=== PATIENT | female | born 1960 | race Caucasian/White ===

== ENCOUNTER 2020-02-06 15:19 | Outpatient (REF) | payer OTHER, SELFPAY ==
--- NOTE | 2020-02-06 15:31 | US_ITS ---
EXAMINATION: PELVIC ULTRASOUND. CLINICAL INFORMATION: Pelvic pain. Perineal pain COMPARISON: None TECHNIQUE: Transcutaneous pelvic ultrasound. The patient was asked to void completely reexamined vaginally to better characterize the endometrium and adnexa FINDINGS: Transcutaneous scanning does not demonstrate a large adnexal mass or collection. The ovaries are not discretely identified. No suspicious abnormality in the region of the vagina. The estimated cervical length is 2.6 cm. No suspicious abnormality. The uterus measures approximately 7.5 x 1.9 x 4.1 cm. The uterus is anteverted. Slightly altered echotexture could reflect previous section. The endometrium measures approximately 0.3 cm. Small amount of fluid in the endometrial cavity of the fundus is nonspecific No suspicious abnormality of the myometrium. The uterine contour appears smooth. The ovaries are not definitely identified. No suspicious adnexal mass or collection. No free pelvic fluid US/US pelvic complete IMPRESSION: Relatively small uterus consistent with postmenopausal state. No suspicious mass. The ovaries are not identified
--- NOTE | 2020-02-06 15:31 | US_ITS ---
EXAMINATION: PELVIC ULTRASOUND. CLINICAL INFORMATION: Pelvic pain. Perineal pain COMPARISON: None TECHNIQUE: Transcutaneous pelvic ultrasound. The patient was asked to void completely reexamined vaginally to better characterize the endometrium and adnexa FINDINGS: Transcutaneous scanning does not demonstrate a large adnexal mass or collection. The ovaries are not discretely identified. No suspicious abnormality in the region of the vagina. The estimated cervical length is 2.6 cm. No suspicious abnormality. The uterus measures approximately 7.5 x 1.9 x 4.1 cm. The uterus is anteverted. Slightly altered echotexture could reflect previous section. The endometrium measures approximately 0.3 cm. Small amount of fluid in the endometrial cavity of the fundus is nonspecific No suspicious abnormality of the myometrium. The uterine contour appears smooth. The ovaries are not definitely identified. No suspicious adnexal mass or collection. No free pelvic fluid US/US transvaginal IMPRESSION: Relatively small uterus consistent with postmenopausal state. No suspicious mass. The ovaries are not identified
== END 2020-02-06 15:20 | disposition home or self-care (01) ==
LOC: HO.HMGCX 15:19
PROVIDERS: PCP Internal Medicine; Visit Provider Nurse Practitioner Family
DX: R10.2 Pelvic and perineal pain (principal)
CPT/HCPCS: 76830; 76856

== ENCOUNTER 2020-03-22 10:37 | Outpatient (REF) | payer OTHER, SELFPAY ==
--- NOTE | 2020-03-22 10:41 | XR_ITS ---
EXAMINATION: LEFT WRIST AND LEFT HAND. CLINICAL INFORMATION: Unspecified injury left wrist, left hand and left fingers. COMPARISON: None TECHNIQUE: 3 views left wrist and 3 views left hand. FINDINGS: LEFT WRIST: There is no visible acute fracture, dislocation or subluxation seen. The soft tissues are normal. LEFT HAND: There is no visible acute fracture, dislocation or subluxation. The joint space is maintained. No bony erosive changes. The soft tissues are normal. XR/XR hand LT 2V IMPRESSION: Unremarkable left wrist and left hand.
--- NOTE | 2020-03-22 10:41 | XR_ITS ---
EXAMINATION: LEFT WRIST AND LEFT HAND. CLINICAL INFORMATION: Unspecified injury left wrist, left hand and left fingers. COMPARISON: None TECHNIQUE: 3 views left wrist and 3 views left hand. FINDINGS: LEFT WRIST: There is no visible acute fracture, dislocation or subluxation seen. The soft tissues are normal. LEFT HAND: There is no visible acute fracture, dislocation or subluxation. The joint space is maintained. No bony erosive changes. The soft tissues are normal. XR/XR wrist LT min 3V IMPRESSION: Unremarkable left wrist and left hand.
== END 2020-03-22 10:38 | disposition home or self-care (01) ==
LOC: HO.HMGCX 10:37
PROVIDERS: PCP Internal Medicine; Visit Provider Nurse Practitioner Family
DX: S69.92XA Unspecified injury of left wrist, hand and finger(s), initial encounter (principal)
CPT/HCPCS: 73110; 73120

== ENCOUNTER → 2020-04-14 10:12 | Outpatient (BNVA) | payer OTHER, SELFPAY | PROVIDERS: PCP Internal Medicine; Visit Provider Advanced Practice Midwife | DX: N95.2 Postmenopausal atrophic vaginitis (principal); Z86.69 Personal history of other diseases of the nervous system and sense organs; Z86.19 Personal history of other infectious and parasitic diseases | CPT/HCPCS: 99212 ==

== ENCOUNTER 2020-06-21 13:49 | Outpatient (REF) | payer OTHER, SELFPAY ==
[2020-06-22 09:22] LABS: BV Int Neg Control Negative (Negative); BV Int Pos Control Positive (Positive)
== END 2020-06-21 13:50 | disposition home or self-care (01) ==
LOC: HO.LAB 13:49
PROVIDERS: PCP Internal Medicine; Visit Provider Advanced Practice Midwife
DX: Z01.419 Encounter for gynecological examination (general) (routine) without abnormal findings (principal); K59.00 Constipation, unspecified; N95.2 Postmenopausal atrophic vaginitis; Z79.899 Other long term (current) drug therapy; Z86.19 Personal history of other infectious and parasitic diseases
CPT/HCPCS: 87480; 87510; 87660

== ENCOUNTER 2020-07-27 14:57 | Outpatient (REF) | payer OTHER, SELFPAY ==
[2020-07-28 09:12] LABS: BV Int Neg Control Negative (Negative); BV Int Pos Control Positive (Positive)
== END 2020-07-27 14:58 | disposition home or self-care (01) ==
LOC: HO.LAB 14:57
PROVIDERS: PCP Internal Medicine; Visit Provider Advanced Practice Midwife
DX: N95.2 Postmenopausal atrophic vaginitis (principal)
CPT/HCPCS: 81003; 87480; 87510; 87660; 99212

== ENCOUNTER 2020-08-04 08:54 | Outpatient (REF) | payer OTHER, SELFPAY ==
--- NOTE | ~2020-08-04 | XR_ITS ---
EXAMINATION: XR LUMBOSACRAL SPINE WITH OBLIQUES CLINICAL INFORMATION: M54.9 - Dorsalgia, unspecified COMPARISON: MRI lumbar spine 01/06/2014 TECHNIQUE: Lumbar spine is imaged in 5 views: AP, lateral, lateral view coned to lumbosacral junction, and bilateral oblique. FINDINGS: There is normal lumbar segmentation with 5 nonrib-bearing lumbar vertebrae of normal height and normal lumbar lordosis. There is no lumbar vertebral compression, spondylolisthesis, or destructive process. The oblique view show no lumbar spondylolysis. There are degenerative disc changes with mild disc narrowing and vertebral spurring L2-L3 and L3-L4. There is lumbar facet degeneration at L5-S1. The SI joints and visualized sacrum are unremarkable. XR/XR lumbar spine 4V min IMPRESSION: 1. Mild degenerative disc changes L2-L3 and L3-L4. 2. Lumbar facet degeneration L5-S1. 3. No vertebral compression, spondylolisthesis, or spondylolysis.
== END 2020-08-04 08:55 | disposition home or self-care (01) ==
LOC: HO.HMGCX 08:54
PROVIDERS: PCP Internal Medicine; Visit Provider Nurse Practitioner Family
DX: M54.9 Dorsalgia, unspecified (principal)
CPT/HCPCS: 72110

== ENCOUNTER 2020-11-23 09:21 | Outpatient (REF) | payer OTHER, SELFPAY ==
[2020-11-23 11:27] LABS: MANUAL DIFF FLAG NO
[2020-11-23 11:33] LABS: Basophils Percent Auto 1.1 % (0-2); Eosinophils Percent Auto 0.5 % (0-4); Hematocrit 38.6 % (37-47); Hemoglobin 12.3 g/dl (12.0-16.0); Lymphocytes Absolute Auto 1.2 X10*3/uL (1.2-4.9); Lymphocytes Percent Auto 31.6 % (20-40); Mean Corpuscular HGB Conc 31.9 g/dl (31.0-35.0); Mean Corpuscular Hemoglobin 30.5 pg (27.0-33.0); Mean Corpuscular Volume 95.8 fL (80-98); Mean Platelet Volume 10.8 fL (9.4-12.3); Monocytes Absolute Auto 0.3 X10*3/uL (0.1-1.2); Monocytes Percent Auto 7.7 % (2-11); Neutrophils Absolute Auto 2.2 X10*3/uL (2.0-8.3); Neutrophils Percent Auto 59.1 % (45-73); Platelet Count 167 X10*3/uL (160-400); Red Blood Count 4.03 X10*6/uL (4.20-5.50); Red Cell Distribution Width 12.6 % (11.0-16.0); White Blood Count 3.8 X10*3/uL (4.8-10.8)
[2020-11-23 12:01] LABS: Alanine Aminotransferase 14 U/L (0-31); Anion Gap 11 (12-20); Aspartate Amino Transferase 17 U/L (5-31); Blood Urea Nitrogen 13 mg/dL (9-16); Calcium 9.1 mg/dL (8.4-10.2); Carbon Dioxide 28 mmol/L (22-29); Chloride 108 mmol/L (96-108); Cholesterol 186 mg/dL; Estimated Glomerular Filt Rate > 60; Glucose Fasting 81 mg/dL (60-99); HDL Cholesterol 51 mg/dL; LDL Cholesterol Calculated 125 mg/dl; Magnesium 2.1 mg/dL (1.6-2.6); Potassium 4.1 mmol/L (3.3-5.1); Sodium 143 mmol/L (135-145); Triglycerides 51 mg/dL
[2020-11-23 12:07] LABS: TSH reflex Free T4 0.78 uIU/mL (0.32-4.0); Vitamin D 25-OH Total 62.7 ng/mL (>30)
[2020-11-23 12:21] LABS: Folate 11.4 ng/mL (> or = 4.0); Vitamin B12 580 pg/mL (200-900)
== END 2020-11-23 09:22 | disposition home or self-care (01) ==
LOC: HO.HMGCLDS 09:21
PROVIDERS: PCP Internal Medicine; Visit Provider Internal Medicine
DX: Z00.00 Encounter for general adult medical examination without abnormal findings (principal); E04.1 Nontoxic single thyroid nodule; R25.2 Cramp and spasm; Z83.49 Family history of other endocrine, nutritional and metabolic diseases; I10 Essential (primary) hypertension
CPT/HCPCS: 36415; 80048; 80061; 82306; 82607; 82746; 83735; 84443; 84450; 84460; 85025

== ENCOUNTER 2021-02-14 14:01 | Outpatient (REF) | payer OTHER, SELFPAY | END 2021-02-14 14:02 | disposition home or self-care (01) | LOC: HO.LNP 14:01 | PROVIDERS: Visit Provider Physician Assistant Medical | DX: N39.0 Urinary tract infection, site not specified (principal) | CPT/HCPCS: 87086 ==

== ENCOUNTER 2021-07-11 13:07 | Outpatient (REF) | payer OTHER, SELFPAY ==
[2021-07-14 02:51] LABS: HPV mRNA E6/E7 rflx Not Detected (Not Detected)
== END 2021-07-11 13:08 | disposition home or self-care (01) ==
LOC: HO.LAB 13:07
PROVIDERS: Visit Provider Advanced Practice Midwife
DX: Z01.411 Encounter for gynecological examination (general) (routine) with abnormal findings (principal); Z11.51 Encounter for screening for human papillomavirus (HPV); N89.8 Other specified noninflammatory disorders of vagina
CPT/HCPCS: 87624; 88142

== ENCOUNTER 2021-08-09 08:32 | Outpatient (REF) | payer OTHER, SELFPAY ==
--- NOTE | ~2021-08-09 | MM_ITS ---
EXAMINATION: MM SCREENING DIGITAL BREAST TOMOSYNTHESIS, BILATERAL CLINICAL INFORMATION: Screening. Asymptomatic. The lifetime risk of breast cancer based on the Tyrer-Cuzick Model is 10%. COMPARISON: Outside mammography: 01/10/2019, 01/02/2018, 12/26/2016 ([facility]). TECHNIQUE: Digital breast tomosynthesis is performed in both the craniocaudal and mediolateral oblique views along with computer-aided detection (CAD). Synthesized 2D images are generated from the tomosynthesis. FINDINGS: There are scattered areas of fibroglandular density (ACR BI-RADS breast composition Category b). There are no significant masses, abnormal calcifications, or other abnormalities. Parenchymal pattern is similar to prior outside exams. No developing density or architectural abnormality. The axilla and skin contours are unremarkable. MM/MM tomosynthesis screening BI IMPRESSION: No mammographic evidence of malignancy. ASSESSMENT: BI-RADS 1: Negative RECOMMENDATION: Routine annual mammography screening. This patient's information was entered into a reminder system with a target due date for their next mammogram.
== END 2021-08-09 08:33 | disposition home or self-care (01) ==
LOC: HO.MAMMO 08:32
PROVIDERS: Visit Provider Internal Medicine
DX: Z12.31 Encounter for screening mammogram for malignant neoplasm of breast (principal)
CPT/HCPCS: 77063; 77067

== ENCOUNTER 2021-09-27 10:36 | Outpatient (REF) | payer OTHER, SELFPAY ==
--- NOTE | ~2021-09-27 | XR_ITS ---
EXAMINATION: XR TIBIA AND FIBULA, RIGHT CLINICAL INFORMATION: Contusion COMPARISON: None TECHNIQUE: AP and lateral views of the right tibia and fibula were obtained. FINDINGS: The bones and soft tissues are normal. No fracture. No osseous lesions. XR/XR tibia fibula RT 2V IMPRESSION: Normal right tibia and fibula.
== END 2021-09-27 10:37 | disposition home or self-care (01) ==
LOC: HO.HMGCX 10:36
PROVIDERS: PCP Internal Medicine; Visit Provider Internal Medicine
DX: S80.11XA Contusion of right lower leg, initial encounter (principal); X58.XXXA Exposure to other specified factors, initial encounter; Y93.9 Activity, unspecified; Y92.9 Unspecified place or not applicable; Y99.8 Other external cause status
CPT/HCPCS: 73590

== ENCOUNTER 2021-10-10 12:09 | Outpatient (REF) | payer OTHER, SELFPAY ==
[2021-10-10 12:57] LABS: Influenza A PCR NEGATIVE (Negative); Influenza B PCR NEGATIVE (Negative); Resp Syncy Virus RNA Qual PCR NEGATIVE (Negative); SARS COV2 PCR INHOUSE NEGATIVE (Negative)
== END 2021-10-10 12:10 | disposition home or self-care (01) ==
LOC: HO.LNP 12:09
PROVIDERS: Visit Provider Physician Assistant
DX: Z20.822 Contact with and (suspected) exposure to COVID-19 (principal); B34.9 Viral infection, unspecified
CPT/HCPCS: 0241U

== ENCOUNTER 2021-11-21 09:38 | Outpatient (REF) | payer OTHER, SELFPAY ==
[2021-11-21 11:38] LABS: Blood Urea Nitrogen 12 mg/dL (9-16); Estimated Glomerular Filt Rate > 60
[2021-11-21 11:44] LABS: Alanine Aminotransferase 14 U/L (0-31); Anion Gap 12 (12-20); Aspartate Amino Transferase 16 U/L (5-31); Blood Urea Nitrogen 12 mg/dL (9-16); Calcium 9.1 mg/dL (8.4-10.2); Carbon Dioxide 27 mmol/L (22-29); Chloride 104 mmol/L (96-108); Cholesterol 209 mg/dL; Estimated Glomerular Filt Rate > 60; Glucose Fasting 89 mg/dL (60-99); HDL Cholesterol 61 mg/dL; LDL Cholesterol Calculated 140 mg/dl; Potassium 4.3 mmol/L (3.3-5.1); Sodium 139 mmol/L (135-145); Triglycerides 42 mg/dL
[2021-11-21 12:04] LABS: TSH reflex Free T4 0.66 uIU/mL (0.32-4.0); Vitamin D 25-OH Total 64.2 ng/mL (>30)
== END 2021-11-21 09:39 | disposition home or self-care (01) ==
LOC: HO.HMGCLDS 09:38
PROVIDERS: Absent Provider Urology; PCP Internal Medicine; Visit Provider Internal Medicine
DX: E04.1 Nontoxic single thyroid nodule (principal); K58.9 Irritable bowel syndrome, unspecified; J02.9 Acute pharyngitis, unspecified; R31.0 Gross hematuria; Z83.49 Family history of other endocrine, nutritional and metabolic diseases; Z86.19 Personal history of other infectious and parasitic diseases
CPT/HCPCS: 36415; 80048; 80061; 82306; 82565; 84443; 84450; 84460; 84520

== ENCOUNTER 2022-03-22 11:05 | Outpatient (REF) | payer OTHER, SELFPAY ==
[2022-03-22 13:49] LABS: MANUAL DIFF FLAG NO
[2022-03-22 13:58] LABS: Basophils Absolute Auto 0.1 X10*3/uL (0.0-0.2); Basophils Percent Auto 1.6 % (0-2); Eosinophils Percent Auto 0.9 % (0-4); Hematocrit 39.5 % (37.0-47.0); Hemoglobin 12.6 g/dl (12.0-16.0); Imm Gran Abs Auto 0.01 X10*3/uL (0.00-0.03); Imm Gran Pct Auto 0.2 % (0.0-0.4); Lymphocytes Absolute Auto 1.2 X10*3/uL (1.2-4.9); Lymphocytes Percent Auto 26.7 % (20-40); Mean Corpuscular HGB Conc 31.9 g/dl (31.0-35.0); Mean Corpuscular Hemoglobin 30.1 pg (27.0-33.0); Mean Corpuscular Volume 94.3 fL (80.0-98.0); Mean Platelet Volume 10.8 fL (9.4-12.3); Monocytes Absolute Auto 0.3 X10*3/uL (0.1-1.2); Monocytes Percent Auto 7.6 % (2-11); Neutrophils Absolute Auto 2.7 x10*3/uL (2.0-8.3); Platelet Count 182 X10*3/uL (160-400); Red Blood Count 4.19 X10*6/uL (4.20-5.50); Red Cell Distribution Width 12.6 % (11.0-16.0); White Blood Count 4.4 X10*3/uL (4.8-10.8)
[2022-03-22 14:54] LABS: Alanine Aminotransferase 17 U/L (0-31); Anion Gap 9 (12-20); Aspartate Amino Transferase 18 U/L (5-31); Blood Urea Nitrogen 15 mg/dL (9-16); Calcium 9.2 mg/dL (8.4-10.2); Carbon Dioxide 30 mmol/L (22-29); Chloride 105 mmol/L (96-108); Cholesterol 214 mg/dL; Estimated Glomerular Filt Rate > 60; Glucose Fasting 92 mg/dL (60-99); HDL Cholesterol 60 mg/dL; LDL Cholesterol Calculated 144 mg/dl; Magnesium 2.4 mg/dL (1.6-2.6); Potassium 4.7 mmol/L (3.3-5.1); Sodium 139 mmol/L (135-145); TSH reflex Free T4 0.75 uIU/mL (0.32-4.0); Triglycerides 50 mg/dL; Vitamin D 25-OH Total 56.8 ng/mL (>30)
[2022-03-22 15:04] LABS: Folate 11.4 ng/mL (> or = 4.0); Vitamin B12 628 pg/mL (200-900)
== END 2022-03-22 11:06 | disposition home or self-care (01) ==
LOC: HO.HMGCLDS 11:05
PROVIDERS: PCP Internal Medicine; Visit Provider Internal Medicine
DX: Z00.01 Encounter for general adult medical examination with abnormal findings (principal); E04.1 Nontoxic single thyroid nodule; E78.5 Hyperlipidemia, unspecified; Z86.69 Personal history of other diseases of the nervous system and sense organs; Z83.49 Family history of other endocrine, nutritional and metabolic diseases
CPT/HCPCS: 36415; 80048; 80061; 82306; 82607; 82746; 83735; 84443; 84450; 84460; 85025

== ENCOUNTER 2022-04-13 08:54 | Outpatient (REF) | payer OTHER, SELFPAY ==
--- NOTE | ~2022-04-13 | US_ITS ---
EXAMINATION: US THYROID CLINICAL INFORMATION: Nontoxic single thyroid nodule. COMPARISON: CT neck with contrast 03/13/2014. TECHNIQUE: Linear transducer grayscale and color Doppler examination with attention to the region of the thyroid. FINDINGS: SIZE: Measurements of the thyroid lobes and nodules are given in sagittal, anteroposterior and transverse dimensions respectively. Right Thyroid Lobe: 4.95 x 1.21 x 1.19 cm, volume 3.76 mL. Parenchyma: The gland echotexture is homogeneous. Thyroid vascularity is normal. Left Thyroid Lobe: 4.75 x 1.83 x 1.33 cm, volume 6.03 mL. Parenchyma: The gland echotexture is homogeneous. Thyroid vascularity is normal. Isthmus: 0.44 cm in maximum AP dimension. Estimated total number of nodules greater than or equal to 1 cm: 1. 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 Location: Isthmus. Size: 0.53 x 0.33 x 0.61 cm, volume 0.01 mL. Nodule characteristics: Composition: Spongiform (0). Echogenicity: Anechoic (0). Shape: Not taller than wide (0). Margins: Smooth (0). Echogenic Foci: None (0). ACR TI-RADS total points: 0 ACR TI-RADS category: 1 2. Location: Left mid. Size: 2.3 x 1.4 x 1.1 cm, volume 1.8 mL. Nodule characteristics: Composition: Solid/almost completely solid (2). Echogenicity: Hypoechoic (2). Shape: Taller than wide (3). Margins: Smooth (0). Echogenic Foci: None (0). ACR TI-RADS total points: 7 ACR TI-RADS category: 5 NODES: No lymphadenopathy is seen in the tissue surrounding the thyroid gland. US/US thyroid IMPRESSION: Slightly asymmetric enlargement left lobe. 2 nodules in the isthmus and midpole left lobe. The left lobe nodule is suspicious based on TI-RADS categorization. Recommend ultrasound guided biopsy. ACR TI-RADS RECOMMENDATION REFERENCE: Ultrasound-guided fine-needle aspiration, followup ultrasound, no further follow up. * TR1 (0 point) and TR 2 (2 points): No FNA or follow up. * TR3 (3 points): FNA if more than or equal to 2.5 cm in maximum dimension, followup ultrasound in 1, 3 and 5 years if 1.5 to 2.4 cm in maximum dimension. * TR4 (4-6 points): FNA if more than or equal to 1.5 cm in maximum dimension, followup ultrasound in 1, 2, 3 and 5 years if 1 to 1.4 cm in maximum dimension. * TR5 (more than or equal to 7 points): FNA if more than or equal to 1 cm in maximum dimension, followup ultrasound every year for 5 years if 0.5 to 0.9 cm in maximum dimension. * TR3, TR4 or TR5 nodules that are below the size threshold for followup receive no follow up.
--- NOTE | 2022-04-13 09:41 | ECG_ITS ---
Test Reason : Z86.79 Blood Pressure : / mmHG Vent. Rate : 060 BPM Atrial Rate : 060 BPM P-R Int : 160 ms QRS Dur : 092 ms QT Int : 402 ms P-R-T Axes : 074 035 047 degrees QTc Int : 402 ms Normal sinus rhythm Incomplete right bundle branch block Borderline ECG When compared with ECG of 30-JUN-2006 08:17, No significant change was found Referred By: Jaki Akers Electronically Signed By:YANG BOUDREAUX MD
== END 2022-04-13 08:55 | disposition home or self-care (01) ==
LOC: HO.HMGCX 08:54
PROVIDERS: PCP Internal Medicine; Visit Provider Internal Medicine
DX: E04.1 Nontoxic single thyroid nodule (principal); Z86.79 Personal history of other diseases of the circulatory system
CPT/HCPCS: 76536; 93005

== ENCOUNTER 2022-07-14 10:23 | Outpatient (REF) | payer OTHER, SELFPAY ==
--- NOTE | ~2022-07-14 | XR_ITS ---
EXAMINATION: XR RIBS, RIGHT, PA CHEST CLINICAL INFORMATION: Back and rib pain. COMPARISON: None available. TECHNIQUE: 3 views of the right ribs were obtained along with a PA view of the chest. A skin marker overlies the right ribs. FINDINGS: Lungs are clear. No consolidation, pneumothorax, or pleural effusion. The cardiomediastinal silhouette and pulmonary vasculature are normal. Osseous structures are unremarkable. Ribs are intact. No fractures are identified. XR/XR ribs RT min 3V w CXR1V IMPRESSION: Unremarkable examination.
== END 2022-07-14 10:24 | disposition home or self-care (01) ==
LOC: HO.HMGCX 10:23
PROVIDERS: PCP Internal Medicine; Visit Provider Internal Medicine
DX: R07.81 Pleurodynia (principal); M54.9 Dorsalgia, unspecified
CPT/HCPCS: 71101

== ENCOUNTER → 2022-07-19 08:36 | Outpatient (BNVA) | payer OTHER, SELFPAY | PROVIDERS: PCP Internal Medicine; Visit Provider Advanced Practice Midwife ==

== ENCOUNTER 2022-08-14 07:53 | Outpatient (REF) | payer OTHER, SELFPAY ==
--- NOTE | ~2022-08-14 | MM_ITS ---
EXAMINATION: MM SCREENING DIGITAL BREAST TOMOSYNTHESIS, BILATERAL CLINICAL INFORMATION: Screening. Asymptomatic. The lifetime risk of breast cancer based on the Tyrer-Cuzick Model is 7%. COMPARISON: Mammography: 08/09/2021; outside mammography 01/10/2019, 01/02/2018 ([place]). TECHNIQUE: Digital breast tomosynthesis is performed in both the craniocaudal and mediolateral oblique views along with computer-aided detection (CAD). Synthesized 2D images are generated from the tomosynthesis. FINDINGS: There are scattered areas of fibroglandular density (ACR BI-RADS breast composition Category b). There are no significant masses, abnormal calcifications, or other abnormalities. No architectural abnormality or developing density or significant change from prior studies. The skin contours and axilla are unremarkable. MM/MM tomosynthesis screening BI IMPRESSION: No mammographic evidence of malignancy. ASSESSMENT: BI-RADS 1: Negative RECOMMENDATION: Routine annual mammography screening. This patient's information was entered into a reminder system with a target due date for their next mammogram.
== END 2022-08-14 07:54 | disposition home or self-care (01) ==
LOC: HO.MAMMO 07:53
PROVIDERS: PCP Internal Medicine; Visit Provider Internal Medicine
DX: Z12.31 Encounter for screening mammogram for malignant neoplasm of breast (principal)
CPT/HCPCS: 77063; 77067

== ENCOUNTER → 2022-10-12 12:36 | Outpatient (BNV) | payer OTHER, SELFPAY | PROVIDERS: PCP Internal Medicine; Visit Provider Internal Medicine Medical Oncology | DX: D72.819 Decreased white blood cell count, unspecified (principal) | CPT/HCPCS: 99203; 99213 ==

== ENCOUNTER 2023-01-01 08:09 | Outpatient (AMB) | payer OTHER, SELFPAY ==
--- NOTE | 2023-01-01 08:10 | AM.OFFWIN_ITS ---
Intake Vital Signs 01/01/23 08:14 Height 5 ft 4 in Weight 144 lb 6 oz BMI 24.8 BP 130/74 Blood Pressure Location Lt brachial Position Sitting Pulse 77 Pulse Source Pulse Oximeter Temp 98.2 F Temp Source Oral Pulse Oximetry (%) 96 Oxygen Delivery Method Room Air Intake Visit Reasons: EST/left foot pain Patient Tobacco Use Status: Never used Tobacco Allergies Quinolones Allergy (Intermediate, Verified 01/01/23 08:29) SYNCOPE Penicillins [PENICILLINS] Allergy (Mild, Verified 01/01/23 08:29) HIVES sulfamethoxazole [From Septra] Allergy (Mild, Verified 01/01/23 08:29) Hives trimethoprim [From Septra] Allergy (Mild, Verified 01/01/23 08:29) Hives acetaminophen [Percocet] Allergy (Unknown, Verified 01/01/23 08:29) Unknown amoxicillin Allergy (Unknown, Verified 01/01/23 08:29) hives gluten Allergy (Unknown, Verified 01/01/23 08:29) Seizure levofloxacin [Levaquin] Allergy (Unknown, Verified 01/01/23 08:29) *ALL QUINOLONES -SYNCOPE oxycodone Allergy (Unknown, Verified 01/01/23 08:29) Unknown penicillin V Allergy (Unknown, Verified 01/01/23 08:29) hives sodium chloride Allergy (Unknown, Verified 01/01/23 08:29) HIVES sodium chloride for inhalation [From Saline] Allergy (Unknown, Verified 01/01/23 08:29) Unknown dairy Allergy (Unknown, Uncoded 01/01/23 08:29) stomach upset Influenza Vac A&B Surf Ant Adj Allergy (Unknown, Uncoded 01/01/23 08:29) hives pickle juice Allergy (Unknown, Uncoded 01/01/23 08:29) Hives Rice (Diagnostic) Allergy (Unknown, Uncoded 01/01/23 08:29) hives Medication List - Last Reconciled 01/01/23 by Chuck Snow MD calcium citrate 500 mg PO DAILY cetirizine (Zyrtec) 10 mg PO DAILY PRN cholecalciferol (vitamin D3) 50 mcg PO DAILY cyclobenzaprine 10 mg PO BEDTIME dicyclomine 10 mg PO TID lutein 10 mg PO DAILY magnesium citrate 100 mg PO DAILY nitrofurantoin monohyd/m-cryst 100 mg (Macrobid) 100 mg PO Q12H 7 days ondansetron 4 mg PO Q8H PRN phenazopyridine (Pyridium) 100 mg PO TID PRN 6 doses polyethylene glycol 3350 (ClearLax) 17 grams PO DAILY resveratrol-quercetin 100-100 mg tabs PO trimethoprim 100 mg PO BEDTIME PRN valacyclovir (Valtrex) 500 mg PO DAILY 90 days verapamil ER 120 mg PO DAILY vitamin B complex 1 tab PO DAILY vitamin E (dl, acetate) 400 units PO DAILY zinc 50 mg PO DAILY Do you need a note to return to daycare/school/sports/work: No HPI HPI Comments History of Present Illness Details 62-year-old female presents to the [facility] for a sick visit. She has 2 complaints. Patient is reporting pain in her left foot for the past month. Does not recall any fall or injury prior to the onset of symptoms. Pain is along the lateral margin of the foot. Worse on walking, but in the past few days she has been awakened at night with foot pain. In addition, patient is complaining of tinnitus. She has had these symptoms for many years but in the past month it has worsened. Symptoms are worse, in both ears when she is in a quiet environment. It is beginning to make her uncomfortable. [facility] Medical History (Updated 01/01/23 @ 08:32 by Chuck Snow MD) Hx of hematuria Hx of recurrent urinary tract infection Hx of renal calculi COVID-19 vaccine dose declined Refused influenza vaccine Tenosynovitis of finger Achilles tendinitis of right lower extremity Positional lightheadedness Irritable bowel syndrome Leg cramps Family history of thyroid disease in mother Thyroid nodule Lumbar arthropathy Endometriosis History of IBS delivery delivered Hyperlipidemia Hx of atrial flutter Liver cyst GERD (gastroesophageal reflux disease) Surgical History (Updated 10/12/22 @ 17:48 by Dale Nj MD) Hx of section Hx of resection of liver Hx of cholecystectomy Family History Father HTN (hypertension) Mother Stroke Social History (Updated 10/12/22 @ 12:55 by Cheryl Robles) Household Members: Spouse Housing: House Alcohol intake: never Patient Tobacco Use Status: Never used Tobacco e-Cigarette/Vaping Use: Never Used Second Hand Smoke Exposure: No service: No Current occupational status: unemployed and retired 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 Current occupational exposures/hazards: No Sexual orientation: Straight/Heterosexual Gender identity: Female Cognitive needs: No Hearing needs: No Vision needs: Yes Female Reproductive History Menstrual Age of Menarche: 16 Physical Exam Vital Signs: Last Vital Signs Temp 98.2 F 01/01/23 08:14 Pulse 77 01/01/23 08:14 BP 130/74 01/01/23 08:14 Pulse Ox 96 01/01/23 08:14 Oxygen Delivery Method Room Air 01/01/23 08:14 BMI result Body Mass Index 24.8 Const General: cooperative and healthy appearing Nutritional Appearance: well nourished Orientation/consciousness: patient oriented x3 Limitations: no limitations HEENT Head: Yes normal to inspection Eyes General: appearance normal, both eyes and all related structures Neck Neck: Yes normal visual inspection Chest Chest palpation & inspection: normal palpation of entire chest wall Resp Effort & Inspection: normal respiratory effort Neuro General: patient oriented x3 Extrem Other: Left foot: No visible swelling. No tenderness. Assessment & Plan Assessment & Plan (1) Contusion of foot, left: Code(s): S90.32XA - Contusion of left foot, initial encounter Qualifiers: Encounter type: initial encounter Qualified Code(s): S90.32XA - Contusion of left foot, initial encounter Plan: X-ray images were personally reviewed by me. No fractures seen. Most likely symptoms this could be swelling or inflammation of the connective tissue. Continue using Motrin. (2) Tinnitus: Code(s): H93.19 - Tinnitus, unspecified ear Qualifiers: Laterality: bilateral Qualified Code(s): H93.13 - Tinnitus, bilateral Plan: I suggested patient follow-up with her primary care provider regarding this issue. She is going to need an audiology exam and a possible ENT referral. Orders: Orders XR foot LT min 3V Today H93.19 - Tinnitus, unspecified ear, S90.32XA - Contusion of left foot, initial encounter Coding Level of Care Code Est Pt Level 4 (17754) Diagnoses Contusion of left foot, initial encounter S90.32XA Encounter type: initial encounter Tinnitus of both ears H93.13 Laterality: bilateral
[2023-01-01 08:14] VITALS: BP 130/74; PULSE 77; TEMP 36.8; O2SAT 96; BMI 24.8
== END 2023-01-01 10:04 | disposition home or self-care (01) ==
PROVIDERS: PCP Internal Medicine; Visit Provider Internal Medicine
DX: S90.32XA Contusion of left foot, initial encounter (principal); H93.13 Tinnitus, bilateral
CPT/HCPCS: 99214

== ENCOUNTER 2023-01-01 08:36 | Outpatient (REF) | payer OTHER, SELFPAY ==
--- NOTE | ~2023-01-01 | XR_ITS ---
EXAMINATION: XR FOOT, LEFT CLINICAL INFORMATION: Left foot contusion. COMPARISON: None available. TECHNIQUE: AP, lateral, and oblique views of the left foot. FINDINGS: Alignment is anatomic. Joint spaces are maintained. No displaced fracture or dislocation. XR/XR foot LT min 3V IMPRESSION: No acute abnormality.
[2023-01-01 12:01] LABS: Cholesterol 195 mg/dL (<200); HDL Cholesterol 64 mg/dL (>40); LDL Cholesterol Calculated 124 mg/dL (<100); Triglycerides 36 mg/dL (<150)
== END 2023-01-01 08:37 | disposition home or self-care (01) ==
LOC: HO.HMGCX 08:36
PROVIDERS: Absent Provider Internal Medicine; PCP Internal Medicine; Visit Provider Internal Medicine
DX: S90.32XA Contusion of left foot, initial encounter (principal); E83.52 Hypercalcemia; E78.5 Hyperlipidemia, unspecified; H93.19 Tinnitus, unspecified ear
CPT/HCPCS: 36415; 73630; 80061; 82330

== ENCOUNTER 2023-01-17 09:11 | Outpatient (REF) | payer OTHER, SELFPAY ==
[2023-01-17 11:56] LABS: Blood Urea Nitrogen 13 mg/dL (9-16); Estimated Glomerular Filt Rate > 60
== END 2023-01-17 09:12 | disposition home or self-care (01) ==
LOC: HO.HMGCLDS 09:11
PROVIDERS: PCP Internal Medicine; Visit Provider Physician Assistant Medical
DX: R31.0 Gross hematuria (principal)
CPT/HCPCS: 36415; 82565; 84520

== ENCOUNTER 2023-01-17 11:34 | Outpatient (AMB) | payer OTHER, SELFPAY ==
[2023-01-17 12:27] VITALS: BP 110/58; PULSE 67; O2SAT 98; BMI 24.4
--- NOTE | 2023-01-17 12:27 | MHC.PC.OV ---
Vital Signs 01/17/23 12:27 Height 5 ft 4 in Weight 142 lb 2 oz BMI 24.4 BP 110/58 L Blood Pressure Location Rt brachial Position Sitting Pulse 67 Pulse Source Pulse Oximeter Pulse Oximetry (%) 98 Oxygen Delivery Method Room Air Intake Visit Reasons: Ringing In The Ears Intake Note: patient is here today for ringing in both ears. Allergies Quinolones Allergy (Intermediate, Verified 01/20/23 02:01) SYNCOPE Penicillins [PENICILLINS] Allergy (Mild, Verified 01/20/23 02:01) HIVES sulfamethoxazole [From Septra] Allergy (Mild, Verified 01/20/23 02:01) Hives trimethoprim [From Septra] Allergy (Mild, Verified 01/20/23 02:01) Hives acetaminophen [Percocet] Allergy (Unknown, Verified 01/20/23 02:01) Unknown amoxicillin Allergy (Unknown, Verified 01/20/23 02:01) hives gluten Allergy (Unknown, Verified 01/20/23 02:01) Seizure levofloxacin [Levaquin] Allergy (Unknown, Verified 01/20/23 02:01) *ALL QUINOLONES -SYNCOPE oxycodone Allergy (Unknown, Verified 01/20/23 02:01) Unknown penicillin V Allergy (Unknown, Verified 01/20/23 02:01) hives sodium chloride Allergy (Unknown, Verified 01/20/23 02:01) HIVES sodium chloride for inhalation [From Saline] Allergy (Unknown, Verified 01/20/23 02:01) Unknown dairy Allergy (Unknown, Uncoded 01/20/23 02:01) stomach upset Influenza Vac A&B Surf Ant Adj Allergy (Unknown, Uncoded 01/20/23 02:01) hives pickle juice Allergy (Unknown, Uncoded 01/20/23 02:01) Hives Rice (Diagnostic) Allergy (Unknown, Uncoded 01/20/23 02:01) hives Medication List - Last Reconciled 01/20/23 by Jaki Akers MD calcium citrate 500 mg PO DAILY cetirizine (Zyrtec) 10 mg PO DAILY PRN cholecalciferol (vitamin D3) 50 mcg PO DAILY cyclobenzaprine 10 mg PO BEDTIME dicyclomine 10 mg PO TID magnesium citrate 100 mg PO DAILY mupirocin 2% 1 appl topical BID 7 days polyethylene glycol 3350 (ClearLax) 17 grams PO DAILY trimethoprim 100 mg PO BEDTIME PRN valacyclovir (Valtrex) 500 mg PO DAILY 90 days verapamil ER 120 mg PO DAILY vitamin B complex 1 tab PO DAILY vitamin E (dl, acetate) 400 units PO DAILY zinc 50 mg PO DAILY Tobacco use date assessed: 01/17/23 Dental Screening Dental Screen Date: 01/17/23 Did you have a dental visit in the last 12 months?: Yes Did you have a dental problem in the last 6 months where you did not have access to dental care?: No Was dental information given to patient?: Patient has dentist HPI Ringing In The Ears HPI Details 62-year-old lady here today complaining of persistent ringing in both ears, accompanied by positional lightheadedness, and decreased hearing. Patient states that she has been diagnosed to have Meniere's disease several years ago, no treatment done at that time. States that symptoms however starting to get worse and would like a referral to an nuclear powerplant mechanic, for further follow-up evaluation/ management [facility] Medical History (Updated 01/17/23 @ 12:54 by Jaki Akers MD) Decreased hearing Intermittent lightheadedness Hx of hematuria Hx of recurrent urinary tract infection Hx of renal calculi COVID-19 vaccine dose declined Refused influenza vaccine Tenosynovitis of finger Achilles tendinitis of right lower extremity Positional lightheadedness Irritable bowel syndrome Leg cramps Family history of thyroid disease in mother Thyroid nodule Lumbar arthropathy Endometriosis History of IBS delivery delivered Hyperlipidemia Hx of atrial flutter Liver cyst GERD (gastroesophageal reflux disease) Surgical History Hx of section Hx of resection of liver Hx of cholecystectomy Family History Father HTN (hypertension) Mother Stroke Social History Household Members: Spouse Housing: House Alcohol intake: never Patient Tobacco Use Status: Never used Tobacco e-Cigarette/Vaping Use: Never Used Second Hand Smoke Exposure: No service: No Current occupational status: unemployed and retired 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 How often do you have a drink containing alcohol?: Never 3. How often do you have six or more drinks on one occasion?: Never Total Score: 0 Score Reviewed/Action Taken: Yes ELOINA-7 AMB Questionnaire ELOINA-7 Date ELOINA - 7 assessed: 03/01/22 Source: Developed by Drs. Aquiles Callejas, Gillian Mckeon, Mic Alfaro and colleagues, with an educational jasvir from [employer]. Review of Systems Const Denies body aches, Denies fatigue, Denies frequent falls, Denies headache(s), Denies lethargy and Denies poor appetite Eyes Denies change in vision, Denies dry eyes, Denies itchy eyes, Denies loss of vision and Denies requires corrective lenses ENT Denies headache(s) Card Details: S1-S2 present regular rate and rhythm Denies dyspnea on exertion Resp Denies chest congestion, Denies cough, Denies hemoptysis and Denies dyspnea on exertion GI Details: normal bowel sounds, soft, nontender, no mass palpated Neuro Denies frequent falls, Denies headache(s) and Denies loss of vision Endo Denies fatigue Aller/Immun Denies itchy eyes Physical exam (Primary Care) Vital Signs: Last Vital Signs Pulse 67 01/17/23 12:27 BP 110/58 L 01/17/23 12:27 Pulse Ox 98 01/17/23 12:27 Oxygen Delivery Method Room Air 01/17/23 12:27 BMI result Body Mass Index 24.4 Tobacco/Smoking Status: Tobacco use Status Tobacco use date assessed 01/17/23 01/17/23 12:29 Patient Tobacco Use Status Never used Tobacco 01/17/23 12:29 e-Cigarette/Vaping Use Never Used 01/17/23 12:29 Thrive Assessment: Date of Thrive Assessment Date Thrive assessed 03/22/22 01/17/23 12:29 Const General: cooperative, comfortable and no acute distress Nutritional Appearance: average body habitus Orientation/consciousness: patient oriented x3 HENMT Ears: external ears normal, TM's normal bilaterally and EAC's normal General nose exam: Normal external nose present and No nasal discharge present Mouth: Normal oral and palatal mucosa present, oropharynx normal and moist mucous membranes Throat: Yes posterior oropharynx normal Eyes General: appearance normal, both eyes and all related structures Conjunctivae: conjunctivae normal Pupils: Equal, round and reactive pupils present EOM: EOMs intact bilaterally Neck Other: Unable to palpate thyroid gland Neck: Yes full ROM, Yes no lymphadenopathy and Yes supple Resp Effort & Inspection: normal respiratory effort and able to speak in complete sentences Auscultation: clear to auscultation bilaterally Cardio Rate: regular rate Rhythm: regular rhythm Heart sounds: S1 normal heart sound present and S2 normal heart sound present Back/Spine/Pelvis Cervical Spine: cervical ROM normal Skin General skin exam: no rashes or lesions noted Neuro General: patient oriented x3, gait normal, tone normal, moves all extremities, Normal light touch and pain sensation and no focal motor deficits Cranial nerves: Yes Equal, round and reactive pupils present Cognition (Neuro): normal cognition Gait exam (Neuro): Normal gait present Motor exam (neuro): 5/5 motor strength present throughout Extrem General: Yes full ROM, Yes no joint enlargement, Yes no pedal edema, Yes no calf tenderness and Yes normal gait Psych Appearance: grossly normal Mental Status: mental status grossly normal Speech and movement: Normal speech and movement present Affect: normal affect Attitude: cooperative Thought process: Normal thought process present Assessment and Plan Assessment & Plan (1) Tinnitus: Code(s): H93.19 - Tinnitus, unspecified ear Qualifiers: Laterality: bilateral Qualified Code(s): H93.13 - Tinnitus, bilateral (2) Intermittent lightheadedness: Code(s): R42 - Dizziness and giddiness (3) Decreased hearing: Code(s): H91.90 - Unspecified hearing loss, unspecified ear Qualifiers: Laterality: unspecified laterality Qualified Code(s): H91.90 - Unspecified hearing loss, unspecified ear Plan With remote history of Meniere's disease, now currently exhibiting the same symptoms she had in the past. Referred to ENT specialist for further evaluation manage Orders: Referrals Ear/Nose/Throat Referral H91.90 - Unspecified hearing loss, unspecified ear, H93.19 - Tinnitus, unspecified ear, R42 - Dizziness and giddiness Coding Level of Care Code Est Pt Level 3 (06575) Diagnoses Tinnitus of both ears H93.13 Laterality: bilateral Intermittent lightheadedness R42 Decreased hearing, unspecified laterality H91.90 Laterality: unspecified laterality
== END 2023-01-17 13:06 | disposition home or self-care (01) ==
PROVIDERS: PCP Internal Medicine; Visit Provider Internal Medicine
DX: H93.13 Tinnitus, bilateral (principal); R42 Dizziness and giddiness; H91.90 Unspecified hearing loss, unspecified ear
CPT/HCPCS: 99213

== ENCOUNTER 2023-04-13 15:02 | Outpatient (AMB) | payer OTHER, SELFPAY ==
--- NOTE | 2023-04-13 15:11 | AM.OFFWIN_ITS ---
Intake Vital Signs 04/13/23 15:12 Height 5 ft 4 in Weight 149 lb BMI 25.6 BP 128/72 Blood Pressure Location Rt brachial Position Sitting Pulse 75 Pulse Source Pulse Oximeter Pulse Oximetry (%) 99 Oxygen Delivery Method Room Air Intake Visit Reasons: EP ?UTI Intake Note: pt is here for c/o possible uti , Painful urination started this morning. Patient Tobacco Use Status: Never used Tobacco Allergies Quinolones Allergy (Intermediate, Verified 04/13/23 15:28) SYNCOPE Penicillins [PENICILLINS] Allergy (Mild, Verified 04/13/23 15:28) HIVES sulfamethoxazole [From Septra] Allergy (Mild, Verified 04/13/23 15:28) Hives trimethoprim [From Septra] Allergy (Mild, Verified 04/13/23 15:28) Hives acetaminophen [Percocet] Allergy (Unknown, Verified 04/13/23 15:28) Unknown amoxicillin Allergy (Unknown, Verified 04/13/23 15:28) hives gluten Allergy (Unknown, Verified 04/13/23 15:28) Seizure levofloxacin [Levaquin] Allergy (Unknown, Verified 04/13/23 15:28) *ALL QUINOLONES -SYNCOPE oxycodone Allergy (Unknown, Verified 04/13/23 15:28) Unknown penicillin V Allergy (Unknown, Verified 04/13/23 15:28) hives sodium chloride Allergy (Unknown, Verified 04/13/23 15:28) HIVES sodium chloride for inhalation [From Saline] Allergy (Unknown, Verified 04/13/23 15:28) Unknown dairy Allergy (Unknown, Uncoded 01/20/23 02:01) stomach upset Influenza Vac A&B Surf Ant Adj Allergy (Unknown, Uncoded 01/20/23 02:01) hives pickle juice Allergy (Unknown, Uncoded 01/20/23 02:01) Hives Rice (Diagnostic) Allergy (Unknown, Uncoded 01/20/23 02:01) hives Do you need a note to return to daycare/school/sports/work: No HPI HPI Comments History of Present Illness Details Patient is a 62yo F who presents to office with UTI concern She is prone to UTIs and has seen urology for this She called their office today but unable to be seen She said onset this am on dysuria, frequency and urgency No hematuria yet No fever or chills + suprapubic pressure [facility] Medical History (Updated 04/13/23 @ 16:04 by Veronica Plunkett PA-C) Decreased hearing Intermittent lightheadedness Hx of hematuria Hx of recurrent urinary tract infection Hx of renal calculi COVID-19 vaccine dose declined Refused influenza vaccine Tenosynovitis of finger Achilles tendinitis of right lower extremity Positional lightheadedness Irritable bowel syndrome Leg cramps Family history of thyroid disease in mother Thyroid nodule Lumbar arthropathy Endometriosis History of IBS delivery delivered Hyperlipidemia Hx of atrial flutter Liver cyst GERD (gastroesophageal reflux disease) Surgical History Hx of section Hx of resection of liver Hx of cholecystectomy Family History Father HTN (hypertension) Mother Stroke Social History Household Members: Spouse Housing: House Alcohol intake: never Patient Tobacco Use Status: Never used Tobacco e-Cigarette/Vaping Use: Never Used Second Hand Smoke Exposure: No service: No Current occupational status: unemployed and retired 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 Current occupational exposures/hazards: No Sexual orientation: Straight/Heterosexual Gender identity: Female Cognitive needs: No Hearing needs: No Vision needs: Yes Female Reproductive History Menstrual Age of Menarche: 16 Review of Systems Const Denies body aches, Denies chills, Denies fatigue and Denies fever(s) Card Denies chest pain Resp Denies cough GI Reports abdominal pain (suprapubic pressure), Reports constipation (chronic), Denies diarrhea, Denies nausea and Denies vomiting Reports difficulty voiding, Reports dysuria, Denies urinary incontinence, Reports urinary hesitancy and Reports urinary urgency Endo Denies fatigue Physical Exam Vital Signs: Last Vital Signs Pulse 75 04/13/23 15:12 BP 128/72 04/13/23 15:12 Pulse Ox 99 04/13/23 15:12 Oxygen Delivery Method Room Air 04/13/23 15:12 BMI result Body Mass Index 25.6 General: Non-toxic, NAD. Speaking full sentences. Skin: Warm dry throughout Eye: EOMI Respiratory: CTA bilaterally. No wheezes, rales or rhonchi Cardiac: RRR. No murmur Abdominal: No CVAT. BS present. Minimal suprapubic tenderness without rebound or guarding MSK: Full ROM extremities. Neurology: A/O. No aphasia or facial droop. Gait without abnormality Psych: Good mood and affect Results AMB Urinalysis, Automated UA Leukoctes 70 [place]/uL Last Edit by David Dey CMA on 04/13/23 15:11 UA Nitrite Negative Last Edit by David Dey CMA on 04/13/23 15:11 UA Urobilinogen 0.2 mg/dL Last Edit by David Dey CMA on 04/13/23 15 :11 UA Protein 0 mg/dL Last Edit by David Dey CMA on 04/13/23 15:11 UA pH 6.0 Last Edit by David Dey CMA on 04/13/23 15:11 UA Blood 80 Dilip/uL Last Edit by David Dey CMA on 04/13/23 15:11 UA Specific [place] 1.000 Last Edit by David Dey CMA on 04/13/23 15:11 UA Ketone Negative Last Edit by David Dye CMA on 04/13/23 15:11 UA Bilirubin 0 mg/dL Last Edit by David Dey CMA on 04/13/23 15:11 UA Glucose 0 mg/dL Last Edit by David Dey CMA on 04/13/23 15:11 Results Reviewed Results Reviewed: Laboratory Last Values Urine pH (Auto) 6.0 04/13/23 15:10 Specific [place] (Auto) 1.000 04/13/23 15:10 Urine Protein (Auto) 0 mg/dL 04/13/23 15:10 Glucose (UA)(Auto) 0 mg/dL 04/13/23 15:10 Urine Ketones (Auto) Negative 04/13/23 15:10 Urine Blood (Auto) 80 Dilip/uL 04/13/23 15:10 Urine Nitrite (Auto) Negative 04/13/23 15:10 Urine Bilirubin (Auto) 0 mg/dL 04/13/23 15:10 Urine Urobilinogen (Auto) 0.2 mg/dL 04/13/23 15:10 Leukocyte Esterase (Auto) 70 [place]/uL 04/13/23 15:10 Assessment & Plan Assessment & Plan (1) Urinary tract infection: Code(s): N39.0 - Urinary tract infection, site not specified Qualifiers: Urinary tract infection type: acute cystitis Hematuria presence: with hematuria Qualified Code(s): N30.01 - Acute cystitis with hematuria Plan: Patient seen and evaluated. Urinalysis + UTI Macrobid to pharmacy F/U with PCP/nephrology Call with concerns Increase fluids ER if flank pain, uncontrolled fever, inability to urinate Patient gave verbal understanding and had no additional questions or concerns at time of discharge All questions answered Orders: Orders AMB Urinalysis Automated Today Z13.9 - Encounter for screening, unspecified Medications: New nitrofurantoin monohyd/m-cryst 100 mg (Macrobid) must administer with a meal/food 100 mg PO BID 14 caps 0RF N39.0 - Urinary tract infection, site not specified phenazopyridine (Pyridium) 100 mg PO TID PRN 6 tabs 0RF pain N39.0 - Urinary tract infection, site not specified Coding Level of Care Code Est Pt Level 3 (71520) Diagnoses Acute cystitis with hematuria N30.01 Urinary tract infection type: acute cystitis Hematuria presence: with hematuria
[2023-04-13 15:12] VITALS: BP 128/72; PULSE 75; O2SAT 99; BMI 25.6
== END 2023-04-13 16:36 | disposition home or self-care (01) ==
PROVIDERS: PCP Internal Medicine; Visit Provider Physician Assistant
DX: N30.01 Acute cystitis with hematuria (principal); Z13.9 Encounter for screening, unspecified
CPT/HCPCS: 81003; 99213

== ENCOUNTER 2023-05-19 13:34 | Outpatient (REF) | payer OTHER, SELFPAY | END 2023-05-19 13:35 | disposition home or self-care (01) | LOC: HO.LNP 13:34 | PROVIDERS: Visit Provider Physician Assistant Medical | DX: N39.0 Urinary tract infection, site not specified (principal) | CPT/HCPCS: 87086 ==

== ENCOUNTER 2023-05-19 13:34 | Outpatient (AMB) | payer OTHER, SELFPAY ==
[2023-05-19 13:37] VITALS: BP 112/70; PULSE 69; TEMP 36.6; O2SAT 96
--- NOTE | 2023-05-19 13:37 | MHC.OFFWIV ---
Intake Vital Signs 05/19/23 13:37 Height 5 ft 4 in BP 112/70 Blood Pressure Location Lt brachial Position Sitting Pulse 69 Pulse Source Pulse Oximeter Temp 97.9 F Pulse Oximetry (%) 96 Intake Visit Reasons: EP UTI Intake Note: pt is here for c/o uti Patient Tobacco Use Status: Never used Tobacco Allergies Quinolones Allergy (Intermediate, Verified 05/19/23 13:37) SYNCOPE Penicillins [PENICILLINS] Allergy (Mild, Verified 05/19/23 13:37) HIVES sulfamethoxazole [From Septra] Allergy (Mild, Verified 05/19/23 13:37) Hives trimethoprim [From Septra] Allergy (Mild, Verified 05/19/23 13:37) Hives acetaminophen [Percocet] Allergy (Unknown, Verified 05/19/23 13:37) Unknown amoxicillin Allergy (Unknown, Verified 05/19/23 13:37) hives gluten Allergy (Unknown, Verified 05/19/23 13:37) Seizure levofloxacin [Levaquin] Allergy (Unknown, Verified 05/19/23 13:37) *ALL QUINOLONES -SYNCOPE oxycodone Allergy (Unknown, Verified 05/19/23 13:37) Unknown penicillin V Allergy (Unknown, Verified 05/19/23 13:37) hives sodium chloride Allergy (Unknown, Verified 05/19/23 13:37) HIVES sodium chloride for inhalation [From Saline] Allergy (Unknown, Verified 05/19/23 13:37) Unknown dairy Allergy (Unknown, Uncoded 01/20/23 02:01) stomach upset Influenza Vac A&B Surf Ant Adj Allergy (Unknown, Uncoded 01/20/23 02:01) hives pickle juice Allergy (Unknown, Uncoded 01/20/23 02:01) Hives Rice (Diagnostic) Allergy (Unknown, Uncoded 01/20/23 02:01) hives Do you need a note to return to daycare/school/sports/work: No HPI HPI Comments History of Present Illness Details This is a 62-year-old female with recurrent urinary tract infections who presented to the office complaining of symptoms that started today. Patient states she has recurrent urinary tract infections and her current symptoms feel similar. She reports dysuria urinary frequency/urgency. She denies any fever/chills. She denies any flank pain. She reports a history of drug-resistant organisms in the past. PFSH Medical History (Updated 04/13/23 @ 16:04 by Veronica Plunkett PA-C) Decreased hearing Intermittent lightheadedness Hx of hematuria Hx of recurrent urinary tract infection Hx of renal calculi COVID-19 vaccine dose declined Refused influenza vaccine Tenosynovitis of finger Achilles tendinitis of right lower extremity Positional lightheadedness Irritable bowel syndrome Leg cramps Family history of thyroid disease in mother Thyroid nodule Lumbar arthropathy Endometriosis History of IBS delivery delivered Hyperlipidemia Hx of atrial flutter Liver cyst GERD (gastroesophageal reflux disease) Surgical History Hx of section Hx of resection of liver Hx of cholecystectomy Family History Father HTN (hypertension) Mother Stroke Social History Household Members: Spouse Housing: House Alcohol intake: never Patient Tobacco Use Status: Never used Tobacco e-Cigarette/Vaping Use: Never Used Second Hand Smoke Exposure: No service: No Current occupational status: unemployed and retired 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 Current occupational exposures/hazards: No Sexual orientation: Straight/Heterosexual Gender identity: Female Cognitive needs: No Hearing needs: No Vision needs: Yes Female Reproductive History Menstrual Age of Menarche: 16 Review of Systems Const All systems reviewed & are unremarkable except as noted in HPI and below Reports no additional complaints Eyes Reports no additional complaints ENT Reports no additional complaints Card Reports no additional complaints Resp Reports no additional complaints GI Reports no additional complaints Reports no additional complaints Musc Reports no additional complaints Skin/Breast Reports system reviewed and no additional complaints, except as documented Neuro Reports no additional complaints Psych Reports no additional complaints Endo Reports no additional complaints Giovanni/Lymph Reports no additional complaints Aller/Immun Reports no additional complaints Physical Exam Vital Signs: Last Vital Signs Temp 97.9 F 05/19/23 13:37 Pulse 69 05/19/23 13:37 BP 112/70 05/19/23 13:37 Pulse Ox 96 05/19/23 13:37 Const Other: Vital signs reviewed. Constitutional: Non-toxic appearing. No acute distress. Well-developed and well-nourished. HEENT: Normocephalic and atraumatic. Skin: Warm and dry. No rashes or lesions noted. Neck: Full and painless range of motion. No cervical lymphadenopathy. Cardio: Regular rate. No lower extremity edema. No JVD. Pulmonary: No respiratory distress. No accessory muscle usage. Gastrointestinal: Soft, nontender, and nondistended in all 4 quadrants. Musculoskeletal: Normal range of motion in joints throughout the body. No deformity or other signs of injury. Neuro: Alert and oriented x4. Cranial nerves 2-12 grossly intact. No focal deficits appreciated. Psych: Normal mood and affect. Results AMB Urinalysis, Automated UA Leukoctes 15 [place]/uL Last Edit by David Dey CMA on 05/19/23 14:02 UA Nitrite Negative Last Edit by David Dey CMA on 05/19/23 14:02 UA Urobilinogen 0.2 mg/dL Last Edit by David Dey CMA on 05/19/23 14:02 UA Protein 0 mg/dL Last Edit by David Dey CMA on 05/19/23 14:02 UA pH 6.5 Last Edit by David Dey CMA on 05/19/23 14:02 UA Blood 200 Dilip/uL Last Edit by David Dey CMA on 05/19/23 14:02 UA Specific [place] 1.005 Last Edit by David Dey CMA on 05/19/23 14:02 UA Ketone Negative Last Edit by David Dey CMA on 05/19/23 14:02 UA Bilirubin 0 mg/dL Last Edit by David Dey CMA on 05/19/23 14:02 UA Glucose 0 mg/dL Last Edit by David Dey CMA on 05/19/23 14:02 Results Reviewed Results Reviewed: Laboratory Last Values Urine pH (Auto) 6.5 05/19/23 14:01 Specific [place] (Auto) 1.005 05/19/23 14:01 Urine Protein (Auto) 0 mg/dL 05/19/23 14:01 Glucose (UA)(Auto) 0 mg/dL 05/19/23 14:01 Urine Ketones (Auto) Negative 05/19/23 14:01 Urine Blood (Auto) 200 Dilip/uL 05/19/23 14:01 Urine Nitrite (Auto) Negative 05/19/23 14:01 Urine Bilirubin (Auto) 0 mg/dL 05/19/23 14:01 Urine Urobilinogen (Auto) 0.2 mg/dL 05/19/23 14:01 Leukocyte Esterase (Auto) 15 [place]/uL 05/19/23 14:01 Assessment & Plan Assessment & Plan (1) Urinary tract infection: Code(s): N39.0 - Urinary tract infection, site not specified Qualifiers: Urinary tract infection type: acute cystitis Hematuria presence: with hematuria Qualified Code(s): N30.01 - Acute cystitis with hematuria Plan This is 62-year-old female with history of recurrent urinary tract infections who presented the office complaining of urinary symptoms that began today. POCT urinalysis shows positive leukocyte esterase and positive blood Patient's vital signs are stable, physical exam is benign, and patient is overall nontoxic appearing. No CVA tenderness or systemic symptoms to suggest acute pyelonephritis. History and physical most consistent with an acute uncomplicated cystitis. Patient sent home on p.o. nitrofurantoin 100 mg twice daily x5 days. Recommended symptomatic management including increased fluids and Advil/Tylenol as needed for pain as long as patient has no medical contraindications. I have sent a urine culture given patient's report of drug resistant organism in the past. Patient was advised to follow-up here or proceed directly to the emergency room if they were to develop fever/chills, nausea/vomiting, flank/back pain, or worsening/persistent symptoms. Patient verbalizes understanding and they are in agreement with the plan. Orders: Orders Urine Culture Today N39.0 - Urinary tract infection, site not specified AMB Urinalysis Automated Today Z13.9 - Encounter for screening, unspecified Medications: New nitrofurantoin macrocrystal must administer with a meal/food 100 mg PO BID 10 caps 0RF Coding Level of Care Code Est Pt Level 3 (12566) Diagnoses Acute cystitis with hematuria N30.01 Urinary tract infection type: acute cystitis Hematuria presence: with hematuria
== END 2023-05-19 14:16 | disposition home or self-care (01) ==
PROVIDERS: PCP Internal Medicine; Visit Provider Physician Assistant Medical
DX: Z13.9 Encounter for screening, unspecified (principal); N30.01 Acute cystitis with hematuria
CPT/HCPCS: 81003; 99051; 99213

== ENCOUNTER 2023-07-26 08:13 | Outpatient (AMB) | payer OTHER, SELFPAY ==
--- NOTE | 2023-07-26 08:29 | MHC.OFFVIS ---
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 Room Supervisor: Locker Room Supervisor Present (Yakelin) Allergies Quinolones Allergy (Intermediate, Verified 07/26/23 08:30) SYNCOPE Penicillins [PENICILLINS] Allergy (Mild, Verified 07/26/23 08:30) HIVES sulfamethoxazole [From Septra] Allergy (Mild, Verified 07/26/23 08:30) Hives trimethoprim [From Septra] Allergy (Mild, Verified 07/26/23 08:30) Hives acetaminophen [Percocet] Allergy (Unknown, Verified 07/26/23 08:30) Unknown amoxicillin Allergy (Unknown, Verified 07/26/23 08:30) hives gluten Allergy (Unknown, Verified 07/26/23 08:30) Seizure levofloxacin [Levaquin] Allergy (Unknown, Verified 07/26/23 08:30) *ALL QUINOLONES -SYNCOPE oxycodone Allergy (Unknown, Verified 07/26/23 08:30) Unknown penicillin V Allergy (Unknown, Verified 07/26/23 08:30) hives sodium chloride Allergy (Unknown, Verified 07/26/23 08:30) HIVES sodium chloride for inhalation [From Saline] Allergy (Unknown, Verified 07/26/23 08:30) Unknown dairy Allergy (Unknown, Uncoded 07/05/23 09:25) stomach upset Influenza Vac A&B Surf Ant Adj Allergy (Unknown, Uncoded 07/05/23 09:25) hives pickle juice Allergy (Unknown, Uncoded 07/05/23 09:25) Hives Rice (Diagnostic) Allergy (Unknown, Uncoded 07/05/23 09:25) hives HPI HPI Comments History of Present Illness Details She is a postmenopausal woman presenting for her annual oral and maxillofacial surgeon examination. She is doing well with no concerns.Uses Replens for dryness. STI testing offered; she declines. Last pap smear; 2021. Last mammogram; 2022. Colonoscopy is UTD. Denies any family history of breast, ovarian or colon cancer. [facility] Medical History Endometriosis determined by laparoscopy Decreased hearing Intermittent lightheadedness Hx of hematuria Hx of recurrent urinary tract infection Hx of renal calculi COVID-19 vaccine dose declined Refused influenza vaccine Tenosynovitis of finger Achilles tendinitis of right lower extremity Positional lightheadedness Irritable bowel syndrome Leg cramps Family history of thyroid disease in mother Thyroid nodule Lumbar arthropathy Endometriosis History of IBS delivery delivered Hyperlipidemia Hx of atrial flutter Liver cyst GERD (gastroesophageal reflux disease) Surgical History H/O shoulder surgery Hx of section Hx of resection of liver Hx of cholecystectomy Family History Father HTN (hypertension) Mother Stroke Social History Household Members: Spouse Housing: House Alcohol intake: never Patient Tobacco Use Status: Never used Tobacco e-Cigarette/Vaping Use: Never Used Second Hand Smoke Exposure: No service: No Current occupational status: unemployed and retired 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 Current occupational exposures/hazards: No Sexual orientation: Straight/Heterosexual Gender identity: Female Cognitive needs: No Hearing needs: No Vision needs: Yes Female Reproductive History Menstrual Age of Menarche: 16 Total pregnancies: 2 Full term: 2 Number of Living Children: 2 Date of last pap smear: 07/11/21 (neg pap and hpv) Date of Mammogram: 08/14/22 (Birad 2) Review of Systems Const All systems reviewed & are unremarkable except as noted in HPI and below Reports as per HPI Eyes Reports no additional complaints ENT Reports no additional complaints Card Reports no additional complaints Resp Reports no additional complaints GI Reports as per HPI and Reports no additional complaints Reports as per HPI Musc Reports no additional complaints Skin/Breast Reports as per HPI Neuro Reports no additional complaints Psych Reports no additional complaints Endo Reports no additional complaints Giovanni/Lymph Reports no additional complaints Aller/Immun Reports no additional complaints Physical Exam Vital Signs: Last Vital Signs BP 102/68 07/26/23 08:30 BMI result Body Mass Index 25.6 Const General: cooperative, healthy appearing, no acute distress, well developed and alert Orientation/consciousness: patient oriented x3 HEENT Head: Yes normal to inspection Eyes General: appearance normal, both eyes and all related structures Neck Neck: Yes normal visual inspection Thyroid: Thyroid normal Chest Chest palpation & inspection: normal inspection of the chest and other (no puckering, dimpling, peau de orange, retraction, discharge, masses) Breast/axilla inspection: normal inspection of the breasts Breast/axilla palpation: normal palpation of the breasts Resp Effort & Inspection: normal respiratory effort GI Inspection: Yes normal to inspection and Yes scar Palpation (GI): Soft to palpation Rectal Exam - Female: deferred General: Yes bladder normal to palpation External Female Exam: normal external appearance and normal appearance of the urethra Speculum Exam - Vagina: normal appearance of the vagina, normal palpation, normal vaginal discharge and vagina atrophic Speculum Exam - Cervix: normal appearance of the cervix and normal palpation Bimanual exam- vagina & uterus: normal bimanual exam, normal palpation, uterine size normal, bladder normal to palpation, normal palpation and non-tender Bimanual Exam- Adnexa, other: no masses Skin General skin exam: no rashes or lesions noted Rashes: no rashes Neuro General: patient oriented x3 Cognition (Neuro): normal cognition Extrem General: Yes normal to inspection Psych Attitude: cooperative Thought process: Normal thought process present Assessment & Plan Assessment & Plan (1) Encounter for well woman exam with routine gynecological exam: Code(s): Z01.419 - Encounter for gynecological examination (general) (routine) without abnormal findings Plan Discussed: Current recommendations for pap smears per ASCCP guidelines. Breast awareness, periodic self breast exams and yearly mammogram. Maintain a healthy lifestyle, well balanced diet including Calcium 1,200 mg and Vitamin D 600 IU daily, and routine exercise. Contact the office with any postmenopausal bleeding. Patient verbalizes understanding and agrees to the plan of care. She was given opportunity to ask questions and all questions were answered to the best of my ability. RTO in 1 year for annual oral and maxillofacial surgeon exam. This note is constructed using voice recognition software. While every effort has been made to ensure accuracy, research microbiologist errors may have been included. Coding Level of Care Code Est Pt Prev Care 40-64y(37938) Diagnoses Encounter for well woman exam with routine gynecological exam Z01.419
[2023-07-26 08:30] VITALS: BP 102/68; BMI 25.6
== END 2023-07-26 09:21 | disposition home or self-care (01) ==
PROVIDERS: Visit Provider Advanced Practice Midwife
DX: Z01.419 Encounter for gynecological examination (general) (routine) without abnormal findings (principal)
CPT/HCPCS: 99396

== ENCOUNTER → 2023-07-26 08:13 | Outpatient (BNVA) | payer OTHER, SELFPAY | PROVIDERS: Visit Provider Advanced Practice Midwife ==

== ENCOUNTER 2023-08-28 07:13 | Outpatient (REF) | payer OTHER, SELFPAY | END 2023-08-28 07:14 | disposition home or self-care (01) | LOC: HO.MAMMO 07:13 | PROVIDERS: PCP Internal Medicine; Visit Provider Internal Medicine | DX: Z12.31 Encounter for screening mammogram for malignant neoplasm of breast (principal) | CPT/HCPCS: 77063; 77067 ==

== ENCOUNTER → 2023-08-28 07:30 | Outpatient (BNV) | payer OTHER, SELFPAY | PROVIDERS: PCP Internal Medicine; Visit Provider Radiology Diagnostic Radiology | DX: Z12.31 Encounter for screening mammogram for malignant neoplasm of breast (principal) | CPT/HCPCS: 77063; 77067 ==

== ENCOUNTER 2023-09-25 09:29 | Outpatient (REF) | payer OTHER, SELFPAY ==
--- NOTE | ~2023-09-25 | XR_ITS ---
EXAMINATION: XR HAND, LEFT CLINICAL INFORMATION: Pain in left hand. COMPARISON: 03/22/2020. TECHNIQUE: PA, lateral, and oblique views of the left hand. FINDINGS: Radiopaque marker placed by technologist to indicate the area of concern as indicated by the patient along the proximal shaft of the fifth metacarpal. The bones are diffusely demineralized. Moderate degenerative changes in the first carpometacarpal joint with joint space narrowing and hypertrophic change. No displaced fracture of the first metacarpal is appreciated. Mild degenerative changes in the first metacarpophalangeal joint. XR/XR hand LT min 3V IMPRESSION: 1. Moderate degenerative changes in the first carpometacarpal joint. 2. No displaced fracture of the first metacarpal is appreciated. 3. Recommend follow up imaging in 10-14 days if fracture is suspected.
== END 2023-09-25 09:30 | disposition home or self-care (01) ==
LOC: HO.HOSX 09:29
DX: M65.4 Radial styloid tenosynovitis [de Quervain] (principal)
CPT/HCPCS: 73130; 99202

== ENCOUNTER 2023-09-25 10:48 | Outpatient (AMB) | payer OTHER, SELFPAY ==
--- NOTE | 2023-09-25 10:54 | MHC.OFFVIS ---
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 States about a year ago her hand went backwards and was given an injection and then states 4 days later her tendon popped . She states she is not in pain but states it feels like her thumb is dislocating. She states she plays golf with no issue. She is using her sons brace at night which she belives is helping with stability. She is not interested in any injections at this time. Allergies Quinolones Allergy (Intermediate, Verified 09/25/23 10:55) SYNCOPE Penicillins [PENICILLINS] Allergy (Mild, Verified 09/25/23 10:55) HIVES sulfamethoxazole [From Septra] Allergy (Mild, Verified 09/25/23 10:55) Hives trimethoprim [From Septra] Allergy (Mild, Verified 09/25/23 10:55) Hives acetaminophen [Percocet] Allergy (Unknown, Verified 09/25/23 10:55) Unknown amoxicillin Allergy (Unknown, Verified 09/25/23 10:55) hives gluten Allergy (Unknown, Verified 09/25/23 10:55) Seizure levofloxacin [Levaquin] Allergy (Unknown, Verified 09/25/23 10:55) *ALL QUINOLONES -SYNCOPE oxycodone Allergy (Unknown, Verified 09/25/23 10:55) Unknown penicillin V Allergy (Unknown, Verified 09/25/23 10:55) hives sodium chloride Allergy (Unknown, Verified 09/25/23 10:55) HIVES sodium chloride for inhalation [From Saline] Allergy (Unknown, Verified 09/25/23 10:55) Unknown dairy Allergy (Unknown, Uncoded 09/25/23 10:55) stomach upset Influenza Vac A&B Surf Ant Adj Allergy (Unknown, Uncoded 09/25/23 10:55) hives pickle juice Allergy (Unknown, Uncoded 09/25/23 10:55) Hives Rice (Diagnostic) Allergy (Unknown, Uncoded 09/25/23 10:55) hives HPI HPI 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 She says for ~1 month she feels her thumb pop out of place primarily in the mornings. She also describes her wrist as being very crunchy at times. She is able to play Golf without issue. She has been wearing a thumb brace her son had. She is not interested in an injection today. After reviewing outside notes from [facility] from 05/12/2020 and 04/12/2020, and in my discussion with the patient: She fell onto her outstretched right hand sometime back in 2019 and developed a calcification in the ulnar base of the right palm. She evidently then had an injection with a steroid into this area which she says then resolve the issue but also she felt pain in the area over the carpal tunnel and the tendon popped .? In any case it sounds like she had good resolution of her symptoms from this episode. COUNT INCLUDES THE [facility] Medical History Endometriosis determined by laparoscopy Decreased hearing Intermittent lightheadedness Hx of hematuria Hx of recurrent urinary tract infection Hx of renal calculi COVID-19 vaccine dose declined Refused influenza vaccine Tenosynovitis of finger Achilles tendinitis of right lower extremity Positional lightheadedness Irritable bowel syndrome Leg cramps Family history of thyroid disease in mother Thyroid nodule Lumbar arthropathy Endometriosis History of IBS delivery delivered Hyperlipidemia Hx of atrial flutter Liver cyst GERD (gastroesophageal reflux disease) Surgical History H/O shoulder surgery Hx of section Hx of resection of liver Hx of cholecystectomy Family History Father HTN (hypertension) Mother Stroke Social History Household Members: Spouse Housing: House Alcohol intake: never Patient Tobacco Use Status: Never used Tobacco e-Cigarette/Vaping Use: Never Used Second Hand Smoke Exposure: No service: No Current occupational status: unemployed and retired 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 Current occupational exposures/hazards: No Sexual orientation: Straight/Heterosexual Gender identity: Female Cognitive needs: No Hearing needs: No Vision needs: Yes Female Reproductive History Menstrual Age of Menarche: 16 Review of Systems Const All systems reviewed & are unremarkable except as noted in HPI and below Physical Exam Const General: cooperative, healthy appearing and no acute distress Orientation/consciousness: patient oriented x3 HEENT Head: Yes normocephalic and Yes atraumatic Eyes EOM: EOMs intact bilaterally Resp Effort & Inspection: normal respiratory effort and able to speak in complete sentences Cardio Jugular venous distension: no JVD Skin General skin exam: turgor normal Rashes: no rashes Neuro General: patient oriented x3 Extrem Other: Evaluation of Left Upper Extremity: The patient is alert, oriented, and in no acute distress Neuro: Median, Ulnar, Radial nerves motor and sensory intact and sensation is normal to the tips of all digits Vascular: Cap refill brisk ROM: She can make a fist and extend all her digits No locking or catching No tenderness over the a1 deyanira No tenderness over the basal joint No tenderness over the MCP joint UCL & RCL fine at MCP joint Negative CMC grind Initially she was not tender over the 1st dorsal compartment However she had a very Positive Torsten test on the right, and says that this reproduces the pain that she has at home. After test she had tenderness over the 1st dorsal compartment. Skin: No lacerations or abrasions. General: No Ecchymosis. No Erythema or evidence of infection. Radiographs: 3 views of the left hand were taken and viewed by me today in clinic. They show no fractures or dislocations. There is some early basal joint osteoarthritis. Psych Appearance: grossly normal Affect: normal affect Attitude: cooperative Assessment & Plan Assessment & Plan (1) De Quervain's tenosynovitis, left: Code(s): M65.4 - Radial styloid tenosynovitis [de Quervain] Category: Medical Plan Assessment & Plan: 1. Left De Quervain's tenosynovitis Positive Torsten test I educated her about this condition I discussed operative and non-operative treatment options The patient is not interested in an injection at this time I discussed activity modification at length, they should limit or avoid any heavy or repetitive pinching, scissoring, or gripping activities She was fitted for a comfort cool brace to wear with daily activity She will follow up prn. If her symptoms persist or worsen we may consider a possible injection in the future Scribed for Eri Christianson MD by han Brand scribe, on 09/25/23 at 11:45 AM, EST. Orders: Orders XR hand LT min 3V Today M79.642 - Pain in left hand Coding Level of Care Code New Pt Level 4 (21478) Diagnoses De Quervain's tenosynovitis, left M65.4
== END 2023-09-25 12:09 | disposition home or self-care (01) ==
PROVIDERS: PCP Internal Medicine; Visit Provider Orthopaedic Surgery
DX: M65.4 Radial styloid tenosynovitis [de Quervain] (principal)
CPT/HCPCS: 99204

== ENCOUNTER 2023-11-19 09:01 | Outpatient (REF) | payer OTHER, SELFPAY ==
[2023-11-19 10:11] LABS: MANUAL DIFF FLAG NO
[2023-11-19 10:16] LABS: Basophils Percent Auto 0.9 % (0-2); Eosinophils Percent Auto 0.4 % (0-4); Hematocrit 37.9 % (37.0-47.0); Hemoglobin 12.8 g/dl (12.0-16.0); Imm Gran Abs Auto 0.02 X10*3/uL (0.00-0.03); Imm Gran Pct Auto 0.4 % (0.0-0.4); Lymphocytes Absolute Auto 1.1 X10*3/uL (1.2-4.9); Mean Corpuscular HGB Conc 33.8 g/dl (31.0-35.0); Mean Corpuscular Hemoglobin 31.2 pg (27.0-33.0); Mean Corpuscular Volume 92.4 fL (80.0-98.0); Monocytes Absolute Auto 0.3 X10*3/uL (0.1-1.2); Monocytes Percent Auto 6.4 % (2-11); Neutrophils Percent Auto 66.9 % (45-73); Platelet Count 197 X10*3/uL (160-400); Red Cell Distribution Width 12.8 % (11.0-16.0); White Blood Count 4.5 X10*3/uL (4.8-10.8)
[2023-11-19 11:17] LABS: Alanine Aminotransferase 15 U/L (0-31); Albumin Level 4.4 g/dL (3.5-5.0); Alkaline Phosphatase 57 U/L (39-117); Anion Gap 10 (12-20); Aspartate Amino Transferase 15 U/L (5-31); Bilirubin Total 0.4 mg/dL (0.0-1.0); Blood Urea Nitrogen 10 mg/dL (9-16); Calcium 9.6 mg/dL (8.4-10.2); Carbon Dioxide 28 mmol/L (22-29); Chloride 107 mmol/L (96-108); Cholesterol 211 mg/dL (<200); Estimated Glomerular Filt Rate > 60; Glucose Random 84 mg/dL (60-115); HDL Cholesterol 63 mg/dL (>40); LDL Cholesterol Calculated 140 mg/dL (<100); Lactate Dehydrogenase 149 U/L (122-220); Magnesium 2.3 mg/dL (1.6-2.6); Potassium 4.4 mmol/L (3.3-5.1); Sodium 141 mmol/L (135-145); Total Protein 6.8 g/dL (6.5-8.0); Triglycerides 40 mg/dL (<150)
== END 2023-11-19 09:02 | disposition home or self-care (01) ==
LOC: HO.HMGCLDS 09:01
PROVIDERS: PCP Internal Medicine; Referring Provider Nurse Practitioner; Visit Provider Internal Medicine Medical Oncology
DX: D72.819 Decreased white blood cell count, unspecified (principal)
CPT/HCPCS: 36415; 80053; 80061; 83615; 83735; 85025

== ENCOUNTER 2023-12-03 09:38 | Outpatient (AMB) | payer OTHER, SELFPAY ==
--- NOTE | 2023-12-03 10:18 | AM.OFFWIN_ITS ---
Intake Vital Signs 12/03/23 10:20 Height 5 ft 4 in Weight 147 lb BMI 25.2 BP 110/74 Blood Pressure Location Lt brachial Position Sitting Pulse 62 Pulse Source Pulse Oximeter Temp 98.0 F Temp Source Oral Pulse Oximetry (%) 99 Oxygen Delivery Method Room Air Intake Visit Reasons: EP- RT side [phone] Intake Note: pt c/o right side and back pain. Started last Sunday. Patient Tobacco Use Status: Never used Tobacco Allergies Quinolones Allergy (Intermediate, Verified 12/03/23 10:24) SYNCOPE Penicillins [PENICILLINS] Allergy (Mild, Verified 12/03/23 10:24) HIVES sulfamethoxazole [From Septra] Allergy (Mild, Verified 12/03/23 10:24) Hives trimethoprim [From Septra] Allergy (Mild, Verified 12/03/23 10:24) Hives acetaminophen [Percocet] Allergy (Unknown, Verified 12/03/23 10:24) Unknown amoxicillin Allergy (Unknown, Verified 12/03/23 10:24) hives gluten Allergy (Unknown, Verified 12/03/23 10:24) Seizure levofloxacin [Levaquin] Allergy (Unknown, Verified 12/03/23 10:24) *ALL QUINOLONES -SYNCOPE oxycodone Allergy (Unknown, Verified 12/03/23 10:24) Unknown penicillin V Allergy (Unknown, Verified 12/03/23 10:24) hives sodium chloride Allergy (Unknown, Verified 12/03/23 10:24) HIVES sodium chloride for inhalation [From Saline] Allergy (Unknown, Verified 12/03/23 10:24) Unknown dairy Allergy (Unknown, Uncoded 12/03/23 10:24) stomach upset Influenza Vac A&B Surf Ant Adj Allergy (Unknown, Uncoded 12/03/23 10:24) hives pickle juice Allergy (Unknown, Uncoded 12/03/23 10:24) Hives Rice (Diagnostic) Allergy (Unknown, Uncoded 12/03/23 10:24) hives Do you need a note to return to daycare/school/sports/work: No HPI EP- RT side [phone] HPI Details This note is constructed using voice recognition software. While every effort has been made to ensure accuracy, open winder errors may have been included. The patient is a 63 year old female who presents to the clinic today with right upper quadrant abdomen pain for the past. She notes that she does not have a gallbladder and had part of her liver removed in 2012. She does follow with GI specialist for IBS, and had been off her medication for some time, starting her medication about 3 days ago again due to the symptoms, without improvement. She reports that pain is actually getting slightly worse. She denies fever, chills, cough, shortness of breath, diarrhea, nausea, vomiting, blood per rectum, jaundice. She reports that she is moving her bowels every day, and they are regular. The pain is straight through from the front to the back on the right side.. [facility] Medical History (Updated 11/21/23 @ 14:10 by Jaki Akers MD) History of supraventricular tachycardia Endometriosis determined by laparoscopy Decreased hearing Intermittent lightheadedness Hx of hematuria Hx of recurrent urinary tract infection Hx of renal calculi COVID-19 vaccine dose declined Refused influenza vaccine Tenosynovitis of finger Achilles tendinitis of right lower extremity Positional lightheadedness Irritable bowel syndrome Leg cramps Family history of thyroid disease in mother Thyroid nodule Lumbar arthropathy Endometriosis History of IBS delivery delivered Hyperlipidemia Hx of atrial flutter Liver cyst GERD (gastroesophageal reflux disease) Surgical History H/O shoulder surgery Hx of section Hx of resection of liver Hx of cholecystectomy Family History Father HTN (hypertension) Mother Stroke Social History Household Members: Spouse Housing: House Alcohol intake: never Patient Tobacco Use Status: Never used Tobacco e-Cigarette/Vaping Use: Never Used Second Hand Smoke Exposure: No service: No Current occupational status: unemployed and retired 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 Current occupational exposures/hazards: No Sexual orientation: Straight/Heterosexual Gender identity: Female Cognitive needs: No Hearing needs: No Vision needs: Yes Female Reproductive History Menstrual Age of Menarche: 16 Review of Systems Const All systems reviewed & are unremarkable except as noted in HPI and below Physical Exam Vital Signs: Last Vital Signs Temp 98.0 F 12/03/23 10:20 Pulse 62 12/03/23 10:20 BP 110/74 12/03/23 10:20 Pulse Ox 99 12/03/23 10:20 Oxygen Delivery Method Room Air 12/03/23 10:20 BMI result Body Mass Index 25.2 Const General: cooperative, healthy appearing, comfortable, no acute distress and alert Orientation/consciousness: patient oriented x3 Limitations: no limitations Neck Neck: Yes normal visual inspection, Yes full ROM and Yes no lymphadenopathy Resp Effort & Inspection: normal respiratory effort and able to speak in complete sentences Auscultation: clear to auscultation bilaterally Cardio Jugular venous distension: no JVD Palpation: normal PMI Rate: regular rate Heart sounds: S1 normal heart sound present, S2 normal heart sound present, no click, no gallops, no murmurs and no rubs GI Inspection: Yes normal to inspection Palpation (GI): Soft to palpation and nontender Percussion: Yes normal to percussion Auscultation: normal bowel sounds General: Yes no CVA tenderness Back/Spine/Pelvis Other: Full range of motion on lateral rotation, extension, flexion of back. Back: no CVA tenderness Skin General skin exam: no rashes or lesions noted, elasticity normal and turgor normal Neuro General: patient oriented x3 Extrem General: Yes normal to inspection, Yes full ROM, Yes capillary refill normal and Yes normal exam except as noted Psych Appearance: grossly normal Mental Status: mental status grossly normal Speech and movement: Normal speech and movement present Affect: normal affect Assessment & Plan Assessment & Plan (1) Pain in the abdomen: Code(s): R10.9 - Unspecified abdominal pain Qualifiers: Abdominal location: right upper quadrant Qualified Code(s): R10.11 - Right upper quadrant pain Plan: Etiology unclear given lack of gallbladder and physical examination findings. Advised patient that she may benefit from a CT scan which we are unable to order here. Advised her to go to the emergency room for evaluation, versus contacting her GI specialist to see if they will be able to order her CT scan. Advised emergency room immediately should she develop any jaundice, acute pain that does not go away, vomiting, as there would be concern for pancreatitis versus further involvement with the liver. Plan See above for full details and plan. Coding Level of Care Code Est Pt Level 4 (59438) Diagnoses Right upper quadrant abdominal pain R10.11 Abdominal location: right upper quadrant
[2023-12-03 10:20] VITALS: BP 110/74; PULSE 62; TEMP 36.7; O2SAT 99; BMI 25.2
== END 2023-12-03 10:53 | disposition home or self-care (01) ==
PROVIDERS: PCP Internal Medicine; Visit Provider Registered Nurse
DX: R10.11 Right upper quadrant pain (principal)
CPT/HCPCS: 99214

== ENCOUNTER 2023-12-04 07:38 | Emergency (ER) | payer OTHER, SELFPAY ==
--- NOTE | ~2023-12-04 | CT_ITS ---
EXAMINATION: CT ABDOMEN AND PELVIS WITHOUT CONTRAST CLINICAL INFORMATION: Right-sided abdominal pain, kidney stone versus appendicitis COMPARISON: None available. TECHNIQUE: Multidetector volumetric imaging was performed from the superior aspect of the liver through the pubic symphysis. Sagittal and coronal reformatted images were obtained on the technologist's workstation. This CT examination was performed using dose optimization techniques as appropriate, variously including the following: *Automated exposure control *Adjustment of mA and/or kV according to patient size (this includes techniques or standardized protocols for targeted exams where dose is matched to indication/reason for exam; i.e. extremities or head) *Use of iterative reconstruction technique DLP: 456 mGy-cm FINDINGS: Evaluation of solid organs, vascular structures, and bowel wall limited in the absence of intravenous contrast. LUNG BASES: Unremarkable. LIVER AND BILIARY TREE: Postsurgical appearance from left partial hepatectomy. Scattered hepatic simple cysts and subcentimeter hypoattenuating lesions, too small to characterize but likely simple cysts. GALLBLADDER: Status post cholecystectomy. PANCREAS: Unremarkable. SPLEEN: Unremarkable. ADRENAL GLANDS: Unremarkable. KIDNEYS AND URETERS: Nonobstructing bilateral renal calculi, measuring up to 4 mm the interpolar left kidney and 2 mm at the interpolar right kidney. No hydronephrosis or ureteral calculi identified. GASTROINTESTINAL TRACT: Unremarkable. Appendix identified and no secondary signs of appendicitis seen. VASCULAR: Mild aortoiliac calcific atherosclerosis. LYMPH NODES: No lymphadenopathy. PERITONEUM: No ascites. BLADDER: Unremarkable. PELVIC VISCERA: Unremarkable. ABDOMINAL AND PELVIC WALL: Unremarkable. OSSEOUS STRUCTURES: Mild multilevel degenerative lumbar spondylosis. CT/CT abdomen pelvis wo IV con IMPRESSION: 1. No acute abnormality of the abdomen or pelvis within the limitations of noncontrast technique. 2. Nonobstructing bilateral renal calculi, measuring up to 4 mm at the interpolar left kidney and 2 mm at the interpolar right kidney. No hydronephrosis or ureteral calculi identified. 3. Appendix identified though no secondary signs of appendicitis seen. Electronically signed by: Fredis Carson MD 12/04/2023 11:33 AM EDT
[2023-12-04 07:42] VITALS: BP 114/70; PULSE 70; RESP 16; TEMP 36.6; O2SAT 97; BMI 25.2
[2023-12-04 07:59] VITALS: BP 121/64; PULSE 69; RESP 14; TEMP 36.7; O2SAT 96
[2023-12-04 08:01] LABS: Basophils Percent Auto 0.9 % (0-2); Eosinophils Absolute Auto 0.1 X10*3/uL (0.0-0.4); Eosinophils Percent Auto 1.2 % (0-4); Hematocrit 38.7 % (37.0-47.0); Hemoglobin 12.8 g/dl (12.0-16.0); Imm Gran Abs Auto 0.01 X10*3/uL (0.00-0.03); Imm Gran Pct Auto 0.2 % (0.0-0.4); Lymphocytes Absolute Auto 1.4 X10*3/uL (1.2-4.9); Lymphocytes Percent Auto 32.7 % (20-40); MANUAL DIFF FLAG NO; Mean Corpuscular HGB Conc 33.1 g/dl (31.0-35.0); Mean Corpuscular Hemoglobin 30.8 pg (27.0-33.0); Mean Corpuscular Volume 93.3 fL (80.0-98.0); Mean Platelet Volume 9.6 fL (9.4-12.3); Monocytes Absolute Auto 0.3 X10*3/uL (0.1-1.2); Monocytes Percent Auto 6.8 % (2-11); Neutrophils Absolute Auto 2.5 x10*3/uL (2.0-8.3); Neutrophils Percent Auto 58.2 % (45-73); Platelet Count 175 X10*3/uL (160-400); Red Blood Count 4.15 X10*6/uL (4.20-5.50); Red Cell Distribution Width 12.7 % (11.0-16.0); White Blood Count 4.3 X10*3/uL (4.8-10.8)
[2023-12-04 08:17] LABS: Alanine Aminotransferase 18 U/L (0-31); Albumin Level 4.4 g/dL (3.5-5.0); Alkaline Phosphatase 63 U/L (39-117); Anion Gap 12 (12-20); Aspartate Amino Transferase 18 U/L (5-31); Bilirubin Direct 0.2 mg/dL (0.0-0.5); Bilirubin Total 0.6 mg/dL (0.0-1.0); Blood Urea Nitrogen 11 mg/dL (9-16); Calcium 9.6 mg/dL (8.4-10.2); Carbon Dioxide 26 mmol/L (22-29); Chloride 108 mmol/L (96-108); Creatinine Clr Calc Pharmacy 71.1; Estimated Glomerular Filt Rate > 60; Glucose Random 98 mg/dL (60-115); Lipase 24 U/L (8-78); Potassium 4.2 mmol/L (3.3-5.1); Sodium 142 mmol/L (135-145); Total Protein 6.9 g/dL (6.5-8.0)
--- NOTE | 2023-12-04 08:19 | ED_ITS ---
HPI - Abdominal Pain General Chief Complaint: Abdominal Pain Stated Complaint: Abd & back pain 1 week Time Seen by Provider: 12/04/23 08:07 Source: patient Mode of arrival: ambulatory Limitations: no limitations History of Present Illness ED Provider: DR. Kerns HPI narrative: A 63-year-old female presented for evaluation of right-sided abdominal pain for 9 days, pain started after patient had a big cheeseburger meal patient stated that she normally do not eat meat, ever since she has been having right-sided abdominal pain, pain has been progressing and worsening over the past 9 days for the last 2 days patient stated pain is more constant and more severe and she could not sleep last night patient was evaluated at an urgent care last week and was told to come to the ER. No nausea, no vomiting, no diarrhea, no blood in stool, stool is normal color and consistency. No dysuria, no frequency urination, no vaginal discharge, sexually active with 1 partner with no risk for STDs, declined chance of . Intra-abdominal surgery is significant for cholecystectomy, laparoscopic exploration for endometriosis, ., known to have stable left kidney stone that she follow with urologist for. Related Data Home Medications ?Medication ?Instructions ?Recorded ?Confirmed calcium citrate 500 mg PO DAILY 11/23/20 07/05/23 cetirizine 10 mg tablet (Zyrtec) 10 mg PO DAILY PRN Allergy Symptoms 11/23/20 07/05/23 cholecalciferol (vitamin D3) 50 50 mcg PO DAILY 11/23/20 07/05/23 mcg (2,000 unit) capsule magnesium citrate 100 mg capsule 100 mg PO DAILY 11/23/20 07/05/23 vitamin B complex 1 tab PO DAILY 11/23/20 07/05/23 vitamin E (dl, acetate) 180 mg 400 unit PO DAILY 11/23/20 07/05/23 (400 unit) capsule zinc 50 mg tablet 50 mg PO DAILY 11/23/20 07/05/23 trimethoprim 100 mg tablet 100 mg PO BEDTIME PRN Sexual 02/14/21 07/05/23 Activity Previous Rx's ?Medication ?Instructions ?Recorded valacyclovir 500 mg tablet 500 mg PO BID PRN as dir #60 tabs 06/14/23 (Valtrex) verapamil 120 mg tablet,extended 120 mg PO DAILY #90 tabs 10/09/23 release omeprazole 40 mg capsule,delayed 40 mg PO DAILY 14 days #14 caps 12/04/23 release Allergies Allergy/AdvReac Type Severity Reaction Status Date / Time Quinolones Allergy Intermediate SYNCOPE Verified 12/04/23 07:48 Penicillins [PENICILLINS] Allergy Mild HIVES Verified 12/04/23 07:48 sulfamethoxazole Allergy Mild Hives Verified 12/04/23 07:48 [From Septra] trimethoprim [From Septra] Allergy Mild Hives Verified 12/04/23 07:48 acetaminophen [Percocet] Allergy Unknown Unknown Verified 12/04/23 07:48 amoxicillin Allergy Unknown hives Verified 12/04/23 07:48 gluten Allergy Unknown Seizure Verified 12/04/23 07:48 levofloxacin [Levaquin] Allergy Unknown *ALL Verified 12/04/23 07:48 QUINOLONES -SYNCOPE oxycodone Allergy Unknown Unknown Verified 12/04/23 07:48 penicillin V Allergy Unknown hives Verified 12/04/23 07:48 sodium chloride Allergy Unknown HIVES Verified 12/04/23 07:48 sodium chloride for Allergy Unknown Unknown Verified 12/04/23 07:48 inhalation [From Saline] dairy Allergy Unknown stomach Uncoded 12/03/23 10:24 upset Influenza Vac A&B Surf Ant Allergy Unknown hives Uncoded 12/03/23 10:24 Adj pickle juice Allergy Unknown Hives Uncoded 12/03/23 10:24 Rice (Diagnostic) Allergy Unknown hives Uncoded 12/03/23 10:24 Review of Systems Review of Systems All other systems are reviewed and are negative Constitutional: Reports as per HPI and Reports no additional constitutional complaints Eyes: Reports as per HPI and Reports no additional eye complaints Reports system reviewed and no additional complaints, except as documented Cardiovascular: Reports as per HPI and Reports no additional cardiovascular complaints Respiratory: Reports as per HPI and Reports no additional respiratory complaints Gastrointestinal: Reports as per HPI and Reports no additional gastrointestinal complaints Genitourinary: Reports no additional female genitourinary complaints Musculoskeletal: Reports no additional musculoskeletal complaints Skin/Breast: Reports system reviewed and no additional complaints, except as docu Psychiatric: Reports no additional psychiatric complaints Endocrine: Reports no additional endocrine complaints Hematologic/Lymphatic: Reports no additional hematologic/lymphatic complaints Allergic/Immunologic: Reports no additional allergic/immunologic complaints Reports system reviewed and no additional complaints, except as documented and Reports Abnormal speech present [facility] Past Medical History Medical History History of supraventricular tachycardia Endometriosis determined by laparoscopy Decreased hearing Intermittent lightheadedness Hx of hematuria Hx of recurrent urinary tract infection Hx of renal calculi COVID-19 vaccine dose declined Refused influenza vaccine Tenosynovitis of finger Achilles tendinitis of right lower extremity Positional lightheadedness Irritable bowel syndrome Leg cramps Family history of thyroid disease in mother Thyroid nodule Lumbar arthropathy Endometriosis History of IBS delivery delivered Hyperlipidemia Hx of atrial flutter Liver cyst GERD (gastroesophageal reflux disease) Surgical History H/O shoulder surgery Hx of section Hx of resection of liver Hx of cholecystectomy Family History Family History Father HTN (hypertension) Mother Stroke Social History Social History Household Members: Spouse Housing: House Alcohol intake: never Patient Tobacco Use Status: Never used Tobacco Smoked in Last 30 Days: No e-Cigarette/Vaping Use: Never Used Second Hand Smoke Exposure: No Use of substances other than those prescribed or required for medical reasons: No Advance Directives: No Advance Directives Information Provided: Yes Patient : No service: No Current occupational status: unemployed and retired 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 Blood pressure elevated. Heart rate normal. Respiratory rate normal. Temperature normal. Oxygen saturation normal. Appearance: Alert. Oriented X3. No acute distress. Head: Normal external exam. Normocephalic. Atraumatic. No Stweart signs noted. No raccoon eyes noted Eyes: PERRLA. EOMI. Conjunctiva and sclera normal. Eyelids normal. ENT: TM's Normal. Pharynx normal. Uvula midline. Moist mucous membranes. No trismus noted. No drooling noted. No muffled voice noted. Neck: Normal inspection. Neck supple. FROM. No adenopathy. Thyroid Normal. No meningeal signs. No neck mass noted. CVS: Normal heart rate and rhythm. Heart sound normal. No murmurs noted. Pulses normal throughout. Respiratory: No respiratory distress. Painless inspiration. Breath sounds normal. No wheezes/rales/rhonchi noted. Chest nontender. No accessory muscle usage noted or decreased air movement noted. Abdomen: Soft and nontender. Bowel sounds normal in all 4 quadrants. No distention noted. No organomegaly noted. No visible injury noted. Back: No CVA tenderness. Full range of motion noted. Skin: Skin warm and dry. Normal skin color. Normal skin turgor. No rashes/lesions/lacerations noted. Extremities: No lower extremity edema. Extremities exhibit normal range of motion. Extremities nontender. Neuro: Oriented X 3. Cranial nerve exam: II-XII are grossly intact No motor deficit. No sensory deficit. Reflexes normal. Course Reevaluation(s) Reevaluation #1: Nine days of right-sided abdominal pain after eating cheeseburger 9 days ago pain is been constant and progressively getting worse, CT abdomen and pelvis revealed no acute intra-abdominal pathology, slightly improved after given Pepcid. Discharge on Prilosec and follow-up GI. Time: 10:30 Medical Decision Making Differential Diagnosis Differential Diagnoses: The differential diagnosis associated with the presentation includes (Pancreatitis, acute appendicitis, colitis, diverticulitis, pyelonephritis, kidney stone, , electrolyte derangement, severe anemia, gastritis.) Admission/Observation Consideration of admission/observation: Escalation of care including admission/observation considered Lab Data MDM Lab Attestation statement: I reviewed the patient's lab results. 12/04/23 07:53 12/04/23 07:53 Labs: Lab Results 12/04/23 Range/Units 07:53 WBC 4.3 L (4.8-10.8) X10*3/uL RBC 4.15 L (4.20-5.50) X10*6/uL Hgb 12.8 (12.0-16.0) g/dl Hct 38.7 (37.0-47.0) % MCV 93.3 (80.0-98.0) fL MCH 30.8 (27.0-33.0) pg MCHC 33.1 (31.0-35.0) g/dl RDW 12.7 (11.0-16.0) % Plt Count 175 (160-400) X10*3/uL MPV 9.6 (9.4-12.3) fL Immature Gran % (Auto) 0.2 (0.0-0.4) % Neut % (Auto) 58.2 (45-73) % Lymph % (Auto) 32.7 (20-40) % [place] % (Auto) 6.8 (2-11) % Eos % (Auto) 1.2 (0-4) % Baso % (Auto) 0.9 (0-2) % Lymph # (Auto) 1.4 (1.2-4.9) X10*3/uL [place] # (Auto) 0.3 (0.1-1.2) X10*3/uL Eos # (Auto) 0.1 (0.0-0.4) X10*3/uL Baso # (Auto) 0.0 (0.0-0.2) X10*3/uL Abs Immat Gran (auto) 0.01 (0.00-0.03) X10*3/uL Absolute Neuts (auto) 2.5 (2.0-8.3) x10*3/uL Absolute Nucleated RBC 0.000 (0.0-0.012) X10*3/uL Nucleated RBC % (auto) 0.0 (0.0-0.2) /100WBC Sodium 142 (135-145) mmol/L Potassium 4.2 (3.3-5.1) mmol/L Chloride 108 (96-108) mmol/L Carbon Dioxide 26 (22-29) mmol/L Anion Gap 12 (12-20) BUN 11 (9-16) mg/dL Creatinine 0.78 (0.5-1.4) mg/dL Estim Creat Clear Calc 71.1 Estimated GFR > 60 Random Glucose 98 (60-115) mg/dL Calcium 9.6 (8.4-10.2) mg/dL Total Bilirubin 0.6 (0.0-1.0) mg/dL Direct Bilirubin 0.2 (0.0-0.5) mg/dL AST 18 (5-31) U/L ALT 18 (0-31) U/L Alkaline Phosphatase 63 (39-117) U/L Total Protein 6.9 (6.5-8.0) g/dL Albumin 4.4 (3.5-5.0) g/dL Lipase 24 (8-78) U/L Independent Interpretation I performed an independent interpretation of an: CT Scan (Abdomen pelvis: No acute intra-abdominal pathology.) Radiology Impression Discussion of test interpretation with radiology: I have reviewed the radiologist's reading. Discharge Plan Discharge Clinical Impression: Abdominal pain Patient Disposition: Home, Self-Care Instructions: Abdominal Pain (ED) Prescriptions: New omeprazole 40 mg capsule,delayed release(DR/EC) 40 mg PO DAILY 14 Days Qty: 14 0RF No Action valacyclovir [Valtrex] 500 mg tablet 500 mg PO BID PRN (Reason: as dir) Qty: 60 0RF Rx Instructions: Use b.i.d. for 3 days with an episode may repeat as needed verapamil 120 mg tablet extended release 120 mg PO DAILY Qty: 90 1RF zinc 50 mg tablet 50 mg PO DAILY vitamin E (dl, acetate) 400 unit capsule 400 unit PO DAILY calcium citrate 250 mg calcium tablet 500 mg PO DAILY vitamin B complex Tablet 1 tab PO DAILY cetirizine [Zyrtec] 10 mg tablet 10 mg PO DAILY PRN (Reason: Allergy Symptoms) cholecalciferol (vitamin D3) 50 mcg (2,000 unit) capsule 50 mcg PO DAILY magnesium citrate 100 mg capsule 100 mg PO DAILY trimethoprim 100 mg tablet 100 mg PO BEDTIME PRN (Reason: Sexual Activity) Referrals: Jaki Akers MD [Primary Care Provider] - Leyla Mitchell MD [Physician] - Print Language: Danish
--- NOTE | 2023-12-04 08:50 | PC.NURSE ---
pt requesting PO medication, d/t not wanting an IV if possible, provider notified and order changed per MAR.
[2023-12-04] MEDS: Magnesium Hydrox/Alum Hydrox 30 ML ORAL.SUSP PO (08:55)
[2023-12-04] MEDS: Famotidine 20 MG TABLET PO (08:55)
[2023-12-04 09:00] LABS: Appearance Urine Clear; Color Urine Yellow; Glucose Urine UA Negative (Negative); Leukocyte Esterase Urine Negative (Negative); Nitrite Urine Negative (Negative); Urine Blood Negative (Negative); Urine Ketones Negative (Negative); Urine Protein Negative (Neg-Trace)
[2023-12-04 10:37] VITALS: BP 124/66; PULSE 62; RESP 16; O2SAT 100
[2023-12-04 12:03] VITALS: BP 119/70; PULSE 62; RESP 16; TEMP 35.7; O2SAT 100
[2023-12-04 14:58] VITALS: BP 124/67; PULSE 64; RESP 18; TEMP 36.3; O2SAT 100
== END 2023-12-04 14:59 | disposition home or self-care (01) ==
PROVIDERS: Emergency Provider Emergency Medicine; PCP Internal Medicine
DX: R10.9 Unspecified abdominal pain (principal); Z79.899 Other long term (current) drug therapy
CPT/HCPCS: 36415; 74176; 80048; 80076; 81003; 83690; 85025; 99284

== ENCOUNTER 2024-01-03 08:00 | Outpatient (RCR) | payer OTHER, SELFPAY ==
--- NOTE | 2023-12-03 14:58 | MHC.OT.OEV ---
[address] [phone] F: [phone] Occupational Therapy Evaluation Patient Name: Darcy Chaparro Diagnosis: (L) De Quervain's Date of Onset: Date of Surgery: Attending Provider: Jaki Akers Prescribed Treatment: Follow Up Appointment: History of Current Condition: Patient is a 63 y/o female with no significant medical hx who was referred to skilled OT with diagnosis of (L)De Quervain's with (+)Torsten Test. She reported symptoms initially began about a year ago but then subsided. However, recently she has been experiencing pain symptoms. She denies numbness/tingling. 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 She lives with her and adult son. 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 Sleep: Driving: Vision: Balance: Pain Assessment Pain Score: 8 Pain Scale Used: Numeric (0 - 10) Pain Location and Description: 0/10 pain at rest 8/10 pain radial side of thumb Aggravating Factors: Alleviating Factors: Ibuprofen Skin and Soft Tissue Assessment Skin and Soft Tissue: Comments: intact Nerve assessment Ulnar Nerve: Median Nerve: Radial Nerve: Comments: Sensory Assessment Temperature: Light Touch: Proprioception: Vibration: Comments: Edema Assessment Upper Extremity: Lower Extremity: Comments: None present Dexterity Assessment Dexterity: Comments: Functional Dexterity Test= WFL (L)23.7 seconds Special Tests Comments: (+)Tinel's (+)Torsten Test AROM(PROM) Strength Cervical Cervical Flexion: Cervical Extension: Cervical Lateral Flexion: Cervical Rotation: Comments: Shoulder Flexion: Extension: Abduction: Internal Rotation: External Rotation: Comments: WFL Flexion: Extension: Abduction: Internal Rotation: External Rotation: Comments: WFL Elbow Flexion: Extension: Pronation: Supination: Comments: WFL Flexion: Extension: Pronation: Supination: Comments: WFL Wrist Flexion: 70 Extension: 35 Ulnar Deviation: 20 Radial Deviation: 35 Comments: Flexion: Extension: Ulnar Deviation: Radial Deviation: Comments: WFL Thumb Thumb CMC Flexion: Thumb MCP Flexion: 65 Thumb IP Flexion: 65 Radial Abduction: 59 Palmar Abduction: 44 Clayton (Kapandji 0-10): Comments: Digits Index MCP: PIP: DIP: Long MCP: PIP: DIP: Ring MCP: PIP: DIP: Small MCP: PIP: DIP: Comments: WFL Gross Grasp: 48.6lbs.(R), 43.6lbs.(L) Lateral Pinch: 10 Two-Point Pinch: 4 Three-Jaw Milton: 6 Comments: Patient Education Primary Language: Evaluator Required: Current Knowledge: Teaching Method: Education Needs Identified on Evaluation: How did patient/family demonstrate learning? Barriers to Learning: Readiness for Learning: Who was educated? Comments: Plan of Care Assessment: Patient is a 63 y/o female who was referred for De Quervain's of the (L)thumb with c/o pain. Based on initial evaluation patient's current wrist AROM measurements are as follows: 35* extension, 70*flexion, 20* ulnar deviation, 35* radial deviation; Thumb AROM measurements are as follows: 44* palmar abduction, 59* Radial abduction, 65* MCP flexion, 65* IP flexion. She achieved 48.6lbs. (R) and 43.6lbs. (L) intervention specialist strength which is under for patient's age and gender. Provocative Test was positive for Tinel's and Torsten Test. She reports pain as 8/10 with movement and 0/10 at rest. Quick DASH= 20.5 which indicates patient's perceived impairment of the UE during self care tasks. Due to the documented impairments it is recommended that patient receive skilled OT in order for her to achieve her PLOF. Thank you for your referral. STG Duration: 2 weeks Short Term Goals: Patient will report decreased pain from 8/10 to 6/10 in (L)thumb Patient will have increased IP flexion to 70* flexion Patient will have increased wrist extension to 40* Patient will increase intervention specialist strength to 50 lbs. LTG Duration: 4 weeks Snf Goals: Patient will report 0/10 pain in (L)thumb for improved performance during self care tasks Patient will have thumb AROM WFLs for increased functional use during self care tasks Patient will have wrist AROM WFLs Patient will be (I) with HEP Frequency and Duration: The patient will be seen 2x a week for 4 weeks Treatment Plan: Therapeutic Exercise Therapeutic Activity Home Exercise Program Splinting Patient Education Edema Control ADL Training Ultrasound Iontophoresis Paraffin Fluidotherapy MHP Cold Packs Soft Tissue Mobilization Kinesiotaping Skilled OT eval and treat Electronically Signed By: AUGUSTINA Vergara/Jose, CLT Reviewed/agree with student documentation: Therapist: Please sign and return to therapist, Thank you for your referral.
--- NOTE | 2024-01-03 11:17 | MHC.OT.DC ---
[address] [phone] F: [phone] Occupational Therapy Discharge Note Patient Name: Darcy Chaparro Provider: Jaki Akers Diagnosis: (L) De Quervain's Date of Surgery: Date of Evaluation: 12/03/23 Date of Discharge: Treatments to Date: 8 Cancellations to Date: No Shows to Date: Discharge Status: Achieved Goals Independent with HEP Discharge Summary: Patient is d/c'd from skilled OT as she achieved her maximal potential in therapy. At this time patient is pain free, has full ROM of the (L) wrist/hand and (I) with her HEP. Patient agreed to with POC. Thank you for your referral. Electronically Signed By: AUGUSTINA White/Jose, SHERRI Reviewed/agree with student documentation: N/A Therapist: Please Sign and return to therapist, thank you for your referral.
== END 2024-01-03 11:19 | disposition home or self-care (01) ==
LOC: HO.OT 08:00
PROVIDERS: PCP Internal Medicine; Visit Provider Internal Medicine
DX: M65.4 Radial styloid tenosynovitis [de Quervain] (principal); M65.9 Synovitis and tenosynovitis, unspecified
CPT/HCPCS: 97035; 97110; 97140; 97165

== ENCOUNTER 2024-01-09 08:55 | Outpatient (REF) | payer OTHER, SELFPAY ==
--- NOTE | ~2024-01-09 | US_ITS ---
EXAMINATION: US ABDOMEN COMPLETE CLINICAL INFORMATION: Right upper quadrant pain, choledocholithiasis versus renal calculi. History of left partial hepatectomy. COMPARISON: CT abdomen and pelvis 12/04/2023 TECHNIQUE: Real-time imaging of the abdominal viscera. FINDINGS: PANCREAS: The visualized portions of pancreas are unremarkable. ABDOMINAL AORTA: The proximal, mid, and distal segments are normal in caliber. Mild calcifications in the distal aorta. INFERIOR VENA CAVA: Visualized portions are normal. LIVER: Status post left partial hepatectomy. The remaining liver demonstrates normal echogenicity. Scattered hepatic cysts are better evaluated on prior CT. There is no intrahepatic biliary duct dilatation seen. GALLBLADDER: The gallbladder is surgically absent. COMMON BILE DUCT: Normal in caliber measuring 0.2 cm in diameter. RIGHT KIDNEY: There is a nonobstructing calculus in the upper pole of the right kidney measuring up to 0.3 cm No hydronephrosis. No focal parenchymal lesions. The kidney measures 9.7 cm in maximum dimension. LEFT KIDNEY: There is a nonobstructing calculus in the midpole of the left kidney measuring up to 0.5 cm. No hydronephrosis. No renal calculi or focal parenchymal lesions. The kidney measures 10 cm in maximum dimension. SPLEEN: Normal in size. The spleen measures 8.9 cm in maximum dimension. FREE FLUID: None. US/US abdomen complete IMPRESSION: 1. Bilateral nonobstructing renal calculi. 2. Status post cholecystectomy. No biliary ductal dilatation. 3. Prior left partial hepatectomy.Scattered hepatic cysts are better evaluated on prior CT. Electronically signed by: Marcos Travis MD 01/09/2024 12:08 PM EDT
== END 2024-01-09 08:56 | disposition home or self-care (01) ==
LOC: HO.HMGCX 08:55
PROVIDERS: PCP Internal Medicine; Referring Provider Internal Medicine Gastroenterology; Visit Provider Internal Medicine Medical Oncology
DX: R10.11 Right upper quadrant pain (principal)
CPT/HCPCS: 76700

== ENCOUNTER 2024-01-29 09:06 | Outpatient (REF) | payer OTHER, SELFPAY ==
[2024-01-29 10:28] LABS: Cholesterol 149 mg/dL (<200); HDL Cholesterol 56 mg/dL (>40); LDL Cholesterol Calculated 83 mg/dL (<100); Triglycerides 52 mg/dL (<150)
== END 2024-01-29 09:07 | disposition home or self-care (01) ==
LOC: HO.HMGCLDS 09:06
PROVIDERS: PCP Internal Medicine; Visit Provider Nurse Practitioner
DX: E78.00 Pure hypercholesterolemia, unspecified (principal)
CPT/HCPCS: 36415; 80061

== ENCOUNTER 2024-02-28 08:51 | Outpatient (REF) | payer OTHER, SELFPAY ==
[2024-03-06 10:49] LABS: Venous Lead <1.0 mcg/dL (<3.5)
== END 2024-02-28 08:52 | disposition home or self-care (01) ==
LOC: HO.HMGCLDS 08:51
PROVIDERS: PCP Internal Medicine; Visit Provider Internal Medicine
DX: Z13.88 Encounter for screening for disorder due to exposure to contaminants (principal)
CPT/HCPCS: 36415; 83655

== ENCOUNTER 2024-03-24 08:44 | Outpatient (AMB) | payer OTHER, SELFPAY ==
--- NOTE | 2024-03-24 09:19 | A.OFFPC_ITS ---
Vital Signs 03/24/24 09:28 Height 5 ft 4 in Weight 146 lb BMI 25.1 BP 92/60 Blood Pressure Location Lt brachial Position Sitting Pulse 56 Pulse Source Pulse Oximeter Pulse Oximetry (%) 96 Oxygen Delivery Method Room Air Intake Visit Reasons: PE Intake Note: Pt is here today for her PE:Last 08/28/23, colonoscopy 07/26/15, papsmear 07/12/21 Allergies Quinolones Allergy (Intermediate, Verified 03/24/24 09:57) SYNCOPE Penicillins [PENICILLINS] Allergy (Mild, Verified 03/24/24 09:57) HIVES sulfamethoxazole [From Septra] Allergy (Mild, Verified 03/24/24 09:57) Hives trimethoprim [From Septra] Allergy (Mild, Verified 03/24/24 09:57) Hives acetaminophen [Percocet] Allergy (Unknown, Verified 03/24/24 09:57) Unknown amoxicillin Allergy (Unknown, Verified 03/24/24 09:57) hives gluten Allergy (Unknown, Verified 03/24/24 09:57) Seizure levofloxacin [Levaquin] Allergy (Unknown, Verified 03/24/24 09:57) *ALL QUINOLONES -SYNCOPE oxycodone Allergy (Unknown, Verified 03/24/24 09:57) Unknown penicillin V Allergy (Unknown, Verified 03/24/24 09:57) hives sodium chloride Allergy (Unknown, Verified 03/24/24 09:57) HIVES sodium chloride for inhalation [From Saline] Allergy (Unknown, Verified 03/24/24 09:57) Unknown dairy Allergy (Unknown, Uncoded 03/24/24 09:57) stomach upset Influenza Vac A&B Surf Ant Adj Allergy (Unknown, Uncoded 03/24/24 09:57) hives pickle juice Allergy (Unknown, Uncoded 03/24/24 09:57) Hives Rice (Diagnostic) Allergy (Unknown, Uncoded 03/24/24 09:57) hives Medication List - Last Reconciled 03/24/24 by Jaki Akers MD calcium citrate 500 mg PO DAILY cetirizine (Zyrtec) 10 mg PO DAILY PRN cholecalciferol (vitamin D3) 50 mcg PO DAILY magnesium citrate 100 mg PO DAILY mupirocin 2% 1 appl topical BID 7 days propranolol ER 60 mg PO DAILY trimethoprim 100 mg PO BEDTIME PRN valacyclovir (Valtrex) 500 mg PO BID PRN vitamin E (dl, acetate) 400 units PO DAILY zinc 50 mg PO DAILY Tobacco use date assessed: 03/24/24 Dental Screening Dental Screen Date: 03/24/24 Did you have a dental visit in the last 12 months?: Yes Did you have a dental problem in the last 6 months where you did not have access to dental care?: No Was dental information given to patient?: Patient has dentist HPI PE HPI Details 63-year-old lady with past medical histo ry of migraine with aura, hyperlipidemia, history of renal stones, history of Meniere's disease, here today for physical exam. She is up-to-date with her cervical cancer screening, done 07/12/2021 at [facility], and is up-to-date with her screening mammogram done 08/28/2023 with negative findings. Goes to Dr. Pierce for her screening colonoscopy, last done 07/26/2015 which showed presence of hyperplastic polyp and internal hemorrhoids, repeat colonoscopy due again in 2025.. She is currently followed by Dr. Simpson at [facility] endocrine clinic for left thyroid nodule, visit reports unavailable for me to review at present time, will request copy of report. She sees Dr. Nj follow-up on her leukopenia, etiology unknown. [facility] Medical History (Updated 03/30/24 @ 18:40 by Jaki Akers MD) Hx of renal calculi History of supraventricular tachycardia Endometriosis determined by laparoscopy Decreased hearing Intermittent lightheadedness Hx of hematuria Hx of recurrent urinary tract infection COVID-19 vaccine dose declined Refused influenza vaccine Tenosynovitis of finger Achilles tendinitis of right lower extremity Positional lightheadedness Irritable bowel syndrome Leg cramps Family history of thyroid disease in mother Thyroid nodule Lumbar arthropathy Endometriosis History of IBS delivery delivered Hyperlipidemia Hx of atrial flutter Liver cyst GERD (gastroesophageal reflux disease) Surgical History (Updated 01/03/24 @ 09:00 by Dale Nj MD) H/O shoulder surgery Hx of section Hx of resection of liver Hx of cholecystectomy Family History (Updated 03/24/24 @ 10:08 by Jaki Akers MD) Father HTN (hypertension) Alzheimer dementia Mother Stroke Social History Household Members: Spouse Housing: House Alcohol intake: never Patient Tobacco Use Status: Never used Tobacco e-Cigarette/Vaping Use: Never Used Second Hand Smoke Exposure: No service: No Current occupational status: unemployed and retired 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 1. Little interest or pleasure in doing things: not at all 2. Feeling down, depressed, or hopeless: not at all 3. Trouble falling or staying asleep, or sleeping too much: not at all 4. Feeling tired or having little energy: not at all Source: Developed by Drs. Aquiles Callejas, Gillian Mckeon, Mic Alfaro and colleagues, with an educational jasvir from [employer]. Thrive Questionnaire Date Thrive assessed: 03/24/24 I am a: Patient What is your living situation today?: I choose not to answer this question Within the past 12 months, did the food you bought not last and you didn't have the money to get more?: I choose not to answer this question Within the past 12 months, did you worry whether your food would run out before you got money to buy more?: I choose not to answer this question Do you have trouble paying for medicines?: I choose not to answer this question Do you have trouble getting transportation to medical appointments?: I choose not to answer this question Do you have trouble paying your heating and electricity bill?: I choose not to answer this question Do you have trouble taking care of your child, family member or friend?: I choose not to answer this question Do you have trouble with day-to-day activities such as bathing, preparing meals, shopping, managing finances, etc.?: I choose not to answer this question Are you currently unemployed and looking for a job?: I choose not to answer this question Are you interested in more education?: I choose not to answer this question Please select the resources that you would like help with: None Currently or been in a relationship where the following occur: I choose not to answer THRIVE Score: 0 AUDIT C Alcohol Use Questionnaire (AUDIT-C) 1. How often do you have a drink containing alcohol?: Monthly or less 2. How many drinks containing alcohol do you have on a typical day when you are drinking?: 1 or 2 3. How often do you have six or more drinks on one occasion?: Never Total Score: 1 ELOINA-7 AMB Questionnaire ELOINA-7 Date ELOINA - 7 assessed: 03/24/24 Feeling nervous, anxious, or on edge: 0 = Not at all Not being able to stop or control worryin = Not at all Worrying too much about different things: 0 = Not at all Trouble relaxin = Not at all Being so restless that it is hard to sit still: 0 = Not at all Becoming easily annoyed or irritable: 0 = Not at all Feeling afraid as if something awful might happen: 0 = Not at all Total ELOINA-7 score (0-4 normal; 5-9 mild; 10-14 moderate; 15-21 severe): 0 Source: Developed by Drs. Aquiles Callejas, Gillian Mckeon, Mic Alfaro and colleagues, with an educational jasvir from [employer]. Review of Systems Const Denies body aches, Denies fatigue, Denies frequent falls, Denies headache(s), Denies lethargy and Denies poor appetite Eyes Details: [facility] eye care, glaucoma suspect Denies change in vision ENT Details: dental prophylaxis q 6 months Denies headache(s) Card Details: Has occasional palpitations nonsustained last several seconds Denies dyspnea and Denies dyspnea on exertion Resp Denies chest congestion, Denies cough, Denies hemoptysis, Denies dyspnea and Denies dyspnea on exertion GI Details: normal bowel sounds, soft, nontender, no mass palpated Details: ff'd at [facility] Musc Reports no additional complaints Skin/Breast Details: sees [place] [facility] Neuro Denies frequent falls and Denies headache(s) Psych Reports no additional complaints Endo Denies fatigue Giovanni/Lymph Details: Followed by Dr. Nj for mild leukopenia Reports no additional complaints Aller/Immun Reports no additional complaints Physical exam (Primary Care) Vital Signs: Last Vital Signs Pulse 56 03/24/24 09:28 BP 92/60 03/24/24 09:28 Pulse Ox 96 03/24/24 09:28 Oxygen Delivery Method Room Air 03/24/24 09:28 BMI result Body Mass Index 25.1 Tobacco/Smoking Status: Tobacco use Status Tobacco use date assessed 03/24/24 03/24/24 09:33 Patient Tobacco Use Status Never used Tobacco 03/24/24 09:19 e-Cigarette/Vaping Use Never Used 03/24/24 09:19 Thrive Assessment: Date of Thrive Assessment Date Thrive assessed 03/24/24 03/24/24 09:36 Currently or been in a relationship where the following occur: I choose not to answer Advance Care Planning discussion: Completed/Scanned Date of discussion: 03/24/24 Who was present: Patient Forms completed: Health Care Proxy Time spent: 16-45 minutes Actual minutes spent: 2 Const General: comfortable and no acute distress Nutritional Appearance: average body habitus Orientation/consciousness: patient oriented x3 HENMT Ears: external ears normal, TM's normal bilaterally and EAC's normal General nose exam: Normal external nose present and No nasal discharge present Mouth: Normal oral and palatal mucosa present, oropharynx normal and moist mucous membranes Throat: Yes posterior oropharynx normal Eyes General: appearance normal, both eyes and all related structures Conjunctivae: conjunctivae normal Pupils: Equal, round and reactive pupils present EOM: EOMs intact bilaterally Neck Other: Unable to palpate thyroid gland Neck: Yes full ROM, Yes no lymphadenopathy and Yes supple Resp Effort & Inspection: normal respiratory effort and able to speak in complete sentences Auscultation: clear to auscultation bilaterally Cardio Rate: regular rate Rhythm: regular rhythm Heart sounds: S1 normal heart sound present and S2 normal heart sound present GI Palpation (GI): Soft to palpation, nontender, no guarding and no masses Auscultation: normal bowel sounds General: Yes deferred (Currently sees [facility] for routine Pap and pelvic exam) Back/Spine/Pelvis Cervical Spine: cervical ROM normal Skin General skin exam: no rashes or lesions noted Neuro General: patient oriented x3, gait normal, tone normal, moves all extremities, Normal light touch and pain sensation and no focal motor deficits Cranial nerves: Yes Equal, round and reactive pupils present Cognition (Neuro): normal cognition Gait exam (Neuro): Normal gait present Motor exam (neuro): 5/5 motor strength present throughout Extrem General: Yes full ROM, Yes no joint enlargement, Yes no pedal edema, Yes no calf tenderness and Yes normal gait Psych Appearance: grossly normal Mental Status: mental status grossly normal Speech and movement: Normal speech and movement present Affect: normal affect Attitude: cooperative Thought process: Normal thought process present Results Reviewed Results Reviewed: Name: Darcy Chaparro Age/Sex: 63/F : 1960 Unit#: [id number] Attend Dr: Dale Nj MD Re01/03/24 Status: REG RCR Location: [facility] Disch: SPEC : [id number] MINI: 01/03/24 STATUS: COMP REQ : [id number] RECD: 01/03/[address]: Dale Nj MD COMP: 01/03/24 ENTERED: 01/03/[address] [facility] DR: Jaki Akers MD ORDERED: CBC Auto Diff Test Result Flag Reference WBC 4.5 L 4.8-10.8 X10*3/uL RBC 4.14 L 4.20-5.50 X10*6/uL HGB 12.9 12.0-16.0 g/dl HCT 38.3 37.0-47.0 % MCV 92.5 80.0-98.0 fL MCH 31.2 27.0-33.0 pg MCHC 33.7 31.0-35.0 g/dl RDW 12.5 11.0-16.0 % PLT 187 160-400 X10*3/uL MPV 9.3 L 9.4-12.3 fL Neut Pct Auto 64.2 45-73 % ImGran Pct Auto 0.2 0.0-0.4 % Lymp Pct Auto 25.9 20-40 % [place] Pct Auto 7.5 2-11 % Eos Pct Auto 1.1 0-4 % Baso Pct Auto 1.1 0-2 % NRBC Pct Auto 0.0 0.0-0.2 /100WBC ANC Neut Abs # 2.9 2.0-8.3 x10*3/uL ImGran Abs Auto 0.01 0.00-0.03 X10*3/uL Lymph Abs Auto 1.2 1.2-4.9 X10*3/uL [place] Abs Auto 0.3 0.1-1.2 X10*3/uL Eos Abs Auto 0.1 0.0-0.4 X10*3/uL Baso Abs Auto 0.1 0.0-0.2 X10*3/uL NRBC Abs Auto 0.000 0.0-0.012 X10*3/uL Name: Darcy Chaparro Age/Sex: 63/F : 1960 Unit#: [id number] Attend Dr: ALCON BORJAS PROJECT ADMIN Re01/29/24 Status: DEP REF Location: [facility] Disch: SPEC : [id number] MINI: 01/29/24 STATUS: COMP REQ : [id number] RECD: 01/29/[address]: ALCON BORJAS PROJECT ADMIN COMP: 01/29/24 ENTERED: 01/29/[address]: Jaki Akers MD ORDERED: Lipid Panel Test Result Flag Reference Triglyceride 52 <150 mg/dL Desirable Triglyceride: less than 150 mg/dL Borderline High Triglyceride 150-199 mg/dL High Triglyceride: 200-499 mg/dL Very High Triglyceride: greater than or equal to 5OO mg/dL Cholesterol 149 <200 mg/dL Desirable Cholesterol: less than 200 mg/dL Borderline High Cholesterol: 200-239 mg/dL High Cholesterol: greater than 239 mg/dL LDL Calculated 83 <100 mg/dL Desirable LDL: less than 100 mg/dL Near Optimal/Above Optimal LDL: 110-129 mg/dL Borderline High LDL: 130-159 mg/dL High LDL: 160-189 mg/dL Very High LDL: greater than or equal to 190 mg/dL HDL 56 >40 mg/dL Desirable HDL: greater than 40 mg/dL Note: This HDL assay may give artificially low results in patients with liver disease. Name: Darcy Chaparro Age/Sex: 63/F : 1960 Unit#: [id number] Attend Dr: Dale Nj MD Re01/03/24 Status: REG RCR [facility] Disch: SPEC : [id number] MINI: 01/03/24 STATUS: COMP REQ : [id number] RECD: 01/03/[address] [facility] [address]: Dale Nj MD COMP: 01/03/24 ENTERED: 01/03/[address] [facility] DR: Jaki Akers MD ORDERED: CMP, LDH/R Test Result Flag Reference Sodium 141 135-145 mmol/L Potassium 4.5 3.3-5.1 mmol/L CL 106 96-108 mmol/L CO2 28 22-29 mmol/L Gap 12 12-20 BUN 12 9-16 mg/dL Creat 0.72 0.5-1.4 mg/dL Estimated CrCl 77.0 Provided height and weight: 162.56 cm, 66.7 kg. eGFR (calculated from the MDRD study equation) and eCrCl (calculated from the Cockcroft-Gault equation) are base d on different parameters and may not yield comparable results. If eCrCl result is absurd, please check patient's height/weight. EGFR > 60 NOTE: For -[place] individuals, multiply the result by 1.210. Chronic Kidney Disease: Estimated GFR < 60 mL/min/1.73m2 Severe Kidney Disease: Estimated GFR < 15 mL/min/1.73m2 Glucose, Random 71 60-115 mg/dL CA 9.3 8.4-10.2 mg/dL Total Bili 0.5 0.0-1.0 mg/dL AST (GOT) 22 5-31 U/L ALT (GPT) 19 0-31 U/L LDH 146 122-220 U/L Protein, Total 6.9 6.5-8.0 g/dL Alb 4.3 3.5-5.0 g/dL Alk Phos 71 39-117 U/L Coding Level of Care Code Est Pt Prev Care 40-64y(57923) Diagnoses Pure hypercholesterolemia E78.00 Hyperlipidemia type: pure hypercholesterolemia History of herpes simplex type 2 infection Z86.19 Leukopenia, unspecified type D72.819 Leukopenia type: unspecified COVID-19 vaccine dose declined Z28.21 Refused influenza vaccine Z28.21 Thyroid nodule E04.1 Advanced directives, counseling/discussion Z71.89 Annual visit for general adult medical examination with abnormal findings Z00.01 Additional Codes Vital Signs *Quality* - Advance Care Planning discussion: Completed/Scanned ([id number]) Vital Signs *Quality* - Time spent: 16-45 minutes ([id number]) Assessment & Plan Assessment & Plan (1) Hyperlipidemia: Code(s): E78.5 - Hyperlipidemia, unspecified Category: Medical Qualifiers: Hyperlipidemia type: pure hypercholesterolemia Qualified Code(s): E78.00 - Pure hypercholesterolemia, unspecified Plan: Latest fasting lipids are within normal limits, currently well controlled with diet and lifestyle changes (2) History of herpes simplex type 2 infection: Code(s): Z86.19 - Personal history of other infectious and parasitic diseases Category: Medical Plan: Takes Valtrex 500 mg 1 tablet b.i.d. at 1st onset of symptoms, currently asymptomatic controlled on propranolol ER 60 mg daily (3) Leukopenia: Code(s): D72.819 - Decreased white blood cell count, unspecified Category: Medical Qualifiers: Leukopenia type: unspecified Qualified Code(s): D72.819 - Decreased white blood cell count, unspecified Plan: Followed by hematology, asymptomatic (4) COVID-19 vaccine dose declined: Code(s): Z28.21 - Immunization not carried out because of patient refusal Category: Medical Plan: Patient refused vaccine booster (5) Refused influenza vaccine: Code(s): Z28.21 - Immunization not carried out because of patient refusal Category: Medical Plan: Declines vaccination (6) Thyroid nodule: Comment: solid left thyroid nodule Code(s): E04.1 - Nontoxic single thyroid nodule Category: Medical Plan: Followed by Dr. Simpson at [facility] endocrine clinic, will request copy of consult report (7) Advanced directives, counseling/discussion: Code(s): Z71.89 - Other specified counseling Plan: Initiated the conversation about Advanced Directives. Advanced Directives help patients prepare for current and future decisions about their medical treatment and place of care. Discussed with patient that it is a process where a patients current condition and prognosis are reviewed, their wishes for information regarding their illness are elicited, and likely medical dilemmas are presented and options discussed. The form can be amended as needed, reviewed yearly and make changes as needed (8) Annual visit for general adult medical examination with abnormal findings: Code(s): Z00.01 - Encounter for general adult medical examination with abnormal findings Plan: Recent fasting labs reviewed with patient. Continue regular dental visit every 6 months and regular eye exams, at least every 2 years. Take adequate calcium in diet and vitamin-D 3 at 2000 IU per cap once a day, in addition to weight- bearing exercises to help maintain good muscle tone and weight control. Instructed to do self-breast exam, and continue with yearly mammogram. Patient does not want to get any vaccines . She goes to [facility] for her routine Pap and pelvic exam which is currently up-to-date. Up-to-date with her screening colonoscopy Orders: Orders Vitamin D 25-OH Total 03/24/24 E78.5 - Hyperlipidemia, unspecified, Z13.1 - Encounter for screening for diabetes mellitus, Z78.0 - Asymptomatic menopausal state
[2024-03-24 09:28] VITALS: BP 92/60; PULSE 56; O2SAT 96; BMI 25.1
--- OUTSIDE RECORDS SUMMARY | 2024-03-26 13:13 | XMS_ITS | Continuity of Care Document ---
Author Organization [facility] [address] [place] [address] Phone [phone] Care Team Providers Care Divider Operator Name Role Phone JerrodlynJaki Care Team Information Repair Specialist [phone] Problems Active Problems Provider Date Endometriosis (clinical) Neil Simpson M.D. Onset: 06/19/2022 Gastroesophageal reflux disease Neil black M.D. Onset: 06/19/2022 Hyperlipidemia Neil Simpson M.D. Onset: 0 06/19/2022 Irritable bowel syndrome Neil Simpson M.D. Onset: 06/19/2022 Thyroid nodule Neil Simpson M.D. Onset: 0 06/19/2022 Atrial flutter Neil Simpson M.D. Onset: 0 06/19/2022 Social History Type Date Description Comments Sex Unknown Tobacco Use Start: Unknown Never Smoked Cigarettes ETOH Use Occasionally consumes wine Allergies and adverse reactions Active Allergies Criticality Reaction Severity Comments Date Quinolones Unable to assess criticality 06/19/2022 Penicillins Unable to assess criticality 06/19/2022 Sulfamethoxazole Unable to assess criticality 06/19/2022 Septra Unable to assess criticality 06/19/2022 Percocet Unable to assess criticality 06/19/2022 Amoxicillin Unable to assess criticality 06/19/2022 Levofloxacin Unable to assess criticality 06/19/2022 Oxycodone Unable to assess criticality 06/19/2022 Dairy Unable to assess criticality 06/19/2022 Gluten Unable to assess criticality 06/19/2022 Rice Unable to assess criticality 06/19/2022 Medications Active Medications SIG Qnty Indications Ordering Provider Date Verapamil HCL [id number] Tablets ER 1 tab by mouth every day Jaki Akers Vital Signs Date Vital Result Comment 07/17/2023 1:38pm BP Systolic 130 mmHg BP Diastolic 80 mmHg Heart Rate 72 /min Height 64 inches 5'4 Weight 148.00 lb BMI (Body Mass Index) 25.4 kg/m2 Results Test Acquired Date Facility Test Result H/L Range [place]te Laboratory test finding 07/17/2023 [facility] TSH Rfx on Abnormal to Free T4 1.090 uIU/mL 0.450-4.500 Medical Devices Description No Information Available Encounters Type Date Location Provider Dx Diagnosis Office Visit 07/17/2023 1:30p Main Office Neil Simpson M.D. E04.2 Nontoxic multinodular goiter Assessments Date Code Description Provider 07/17/2023 E04.2 Multinodular goiter Neil Dang M.D. Plan of Treatment Future Appointment(s):* 07/28/2024 8:15 am - Neil Simpson M.D. at Main Office 06/19/2022 - Neil Simpson M.D.* E04.2 Multinodular goiter* New Xrays:* US Guided Fna Fine Needle Aspiration Biopsy Thyroid, Scheduled: 07/10/22 Functional Status Description No Information Available Mental Status Description No Information Available Referrals Refer to Reason for Referral Status Appt Neil Colón M.D. Created [address] [place] [address] Drive [address] [place] [address] [phone] Neil Simpson M.D. Created [address] [place] [address] Drive [address] [place] [id number] [phone]
== END 2024-03-24 10:32 | disposition home or self-care (01) ==
PROVIDERS: PCP Internal Medicine; Visit Provider Internal Medicine
DX: Z00.01 Encounter for general adult medical examination with abnormal findings (principal); E78.00 Pure hypercholesterolemia, unspecified; Z86.19 Personal history of other infectious and parasitic diseases; D72.819 Decreased white blood cell count, unspecified; Z28.21 Immunization not carried out because of patient refusal; E04.1 Nontoxic single thyroid nodule; Z71.89 Other specified counseling

== ENCOUNTER → 2024-03-24 08:44 | Outpatient (BNVA) | payer OTHER, SELFPAY | PROVIDERS: PCP Internal Medicine; Visit Provider Internal Medicine | DX: Z00.01 Encounter for general adult medical examination with abnormal findings (principal); E78.00 Pure hypercholesterolemia, unspecified; D72.819 Decreased white blood cell count, unspecified; E04.1 Nontoxic single thyroid nodule; Z71.89 Other specified counseling; Z86.19 Personal history of other infectious and parasitic diseases | CPT/HCPCS: 96127; 99497 ==

== ENCOUNTER 2024-05-07 08:20 | Outpatient (REF) | payer OTHER, SELFPAY ==
--- OUTSIDE RECORDS SUMMARY | 2024-05-07 08:28 | XMS_ITS | Patient Health Record ---
Author Organization [facility] Address [address] [place] [address] Care Team Providers Care Insurance Clerk Name Role Phone Aleah Chakraborty Unavailable [phone] Reason For Referral No Information Problems Problem Type SNOMED Code ICD Code Onset Dates Problem Status W/U Status Risk Notes Problem Endometriosis (394920478) Endometriosis of other specified sites (617.8) Active confirmed Diag Problem Endometriosis (877722413) Endometriosis, site unspecified (617.9) Active confirmed Major Problem Urinary tract infectious disease (disorder) (84480990) Urinary tract infection, site not specified (599.0) Active confirmed Diag Problem Cyst of ovary (29169064) Other and unspecified ovarian cyst (620.2) Active confirmed Diag Problem Left lower quadrant pain (794903947) Abdominal pain, left lower quadrant (789.04) Active confirmed Diag Problem Gynecological examination normal (269350322619923) Routine gynecological examination (V72.31) Active confirmed Diag Problem Dietary management surveillance (743436973) Dietary surveillance and counseling (V65.3) Active confirmed Diag Problem Exercises teaching, guidance, and counseling (585767088) Exercise counseling (V65.41) Active confirmed Diag Plan Of Treatment No Information Insurance Providers Payer Name Payer Address Payer Phone Subscriber Number Group Number Insured Name Patient Relationship to Insured Coverage Start Date Coverage End Date [facility] [employer] [facility] [employer] [address] [facility], [place] [id number] [phone] [id number] ESTEFANY SARMIENTO Self - patient is the insured
--- OUTSIDE RECORDS SUMMARY | 2024-05-07 08:28 | XMS_ITS | Continuity of Care Document ---
Author Organization [facility] [address] [place] [address] Phone [phone] Care Team Providers Care Side Framer Name Role Phone ElanikitaJaki Care Team Information Cemetery Laborer [phone] Problems Active Problems Provider Date Endometriosis (clinical) [...] Qnty Indications Ordering Provider Date Verapamil HCL [id number] Tablets ER 1 tab by mouth every [...] for Referral Status Appt Neil Colón M.D. Closed [address] [place] [address] Drive [address] [place] [address] [phone] Neil Simpson M.D. Created [address] [place] [address] Drive [address] [place] [address] [phone]
--- OUTSIDE RECORDS SUMMARY | 2024-05-07 08:29 | XMS_ITS | Clinical Summary ---
Author Organization [facility] Address [address] [place] [address] Phone Care Team Providers Care Traffic Survey Technician Name Role Phone Jaki Akers MD Primary Care Provider Medications No known medications Encounters Date Type Department Care Team Description 04/04/2024 Telephone Gastroenterology - [address] [facility] [address] [place] [phone] Linda Causey MA from Last 3 Months Surgical History Surgery Date Site/Laterality Comments OTHER SURGICAL HISTORY PROCEDURE: ---- OTHER ----; COMMENT: EGD and Colonoscopy as normal OTHER SURGICAL HISTORY PROCEDURE: MN UNLISTED PROCEDURE LIVER; COMMENT: liver resection CHOLECYSTECTOMY PROCEDURE: HISTORICAL CHOLECYSTECTOMY OTHER SURGICAL HISTORY PROCEDURE: LAPAROSCOPY PROCEDURE NEC; COMMENT: endometriosis OTHER SURGICAL HISTORY Right PROCEDURE: MN UNLISTED PROCEDURE VASCULAR SURGERY; COMMENT: vein removal leg SECTION PROCEDURE: HISTORICAL DELIVERY; COMMENT: x 2 WISDOM TOOTH EXTRACTION PROCEDURE: HISTORICAL WISDOM TEETH EXTRACTION OTHER SURGICAL HISTORY PROCEDURE: MN BIOPSY THYROID PERCUTANEOUS CORE NEEDLE; COMMENT: neg Medical History Medical History Date Comments Meniere's disease DX:Meniere's d isease RBBB (right bundle branch block) DX:RBBB (right bundle branch block) Liver tumor 06/23/2013 DX:Liver tumor; COMMENT: Benign tumor Hyperlipidemia DX:Hyperlipidemi a Renal calculi DX:Renal calculi ; COMMENT: Dr. Washington Thyroid nodule DX:Thyroid nodul e; COMMENT: neg biopsy, Dr. Simpson Chronic abdominal pain DX:Chroni c abdominal pain; COMMENT: Dr. Pierce Celiac disease DX:Celiac diseas e Family History Medical History Relation Name Comments Other: afib Father Stroke Mother 3 Breast cancer Other 2 pat cousins cousins; rinaldi rnal Other: pacemaker Paternal Grandfather Dementia Sister 1 Diabetes Sister 1 Colon cancer Neg Hx Heart attack Neg Hx Ovarian cancer Neg Hx Uterine cancer Neg Hx Relation Name Status Comments Brother Alive healthy Father Alive no medical prob lems Maternal Grandfather Maternal Grandmother Mother Alive TIA Other 2 pat cousins Alive Paternal Grandfather Paternal Grandmother Sister 1 Alive healthy Sister 2 Alive healthy Son 1 Alive healthy Son 2 Alive healthy Social History Tobacco Use Types Packs/Day Years Used Date Smoking Tobacco: Never Smokeless Tobacco: Never Alcohol Use Standard Drinks/Week Comments Yes 0 (1 standard drink = 0.6 oz pur e alcohol) Sex and Gender Information Value Date Recorded Sex Assigned at Female 03/27/2024 8:46 AM EST Gender Identity Female 03/27/2024 8:46 AM EST Sexual Orientation Straight 03/27/2024 8: 46 AM EST Job Start Date Occupation Industry Not on file Not on file Not on file Obstetrics History Last Filed Vital Signs Vital Sign Reading Time Taken Comments Blood Pressure 120/72 01/08/2024 9:25 AM EDT Pulse 67 01/08/2024 9:25 AM EDT Temperature - - Respiratory Rate - - Oxygen Saturation - - Inhaled Oxygen Concentration - - Weight 64.9 kg (143 lb) 01/08/2024 9:25 AM EDT Height 162.6 cm (5' 4 ) 11/21/2023 8:12 AM EDT Body Mass Index 24.55 11/21/2023 8:12 AM EDT Plan of Treatment Upcoming Encounters Date Type Department Care Team (Late st Contact Info) Description 07/15/2024 8:30 AM EDT Appointment [facility] Ultrasound [address] [place] [address] Health Maintenance Due Date Last Done Comments Cervical Cancer Screening: P ap Smear 11/30/1983 Hepatitis B Vaccines (2 of 3 - Risk 3-dose series) 04/17/2006 03/20/2006 Hepatitis A Vaccines (2 of 2 - Risk 2-dose series) 09/18/2006 03/20/2006 Zoster Vaccines (1 of 2) 2012 Breast Cancer Screening 01/10/2021 01/11/20 19, 01/02/2018, 12/26/2016 Cholesterol Screening (Lipid Panel) 03/18/2022 Colorectal Cancer Screening: Colonoscopy 03/18/2022 Depression Screening 03/18/2022 HIV Screening 03/18/2022 Hepatitis C Screening 03/18/2022 Social Influencers of Health Screening 03/18/2022 DTaP,Tdap,and Td Vaccines (2 - Td or Tdap) 09/30/2022 09/30/2012 RSV Immunization Patients 60 + Years Old (1 - Risk 60-74 years 1-dose series) 2022 COVID-19 Vaccine (1 - 2023-2 5 season) 2023 Influenza Vaccine (#1) 2023 HIB Vaccines Aged Out No longer eligi ble based on patient's age to complete this topic HPV Vaccines Aged Out No longer eligi ble based on patient's age to complete this topic IPV Vaccines Aged Out No longer eligi ble based on patient's age to complete this topic MMR Vaccines Aged Out No longer eligi ble based on patient's age to complete this topic Meningococcal ACWY Vaccine Aged Out N o longer eligible based on patient's age to complete this topic Pneumococcal Vaccine: Pediatrics (0 to 5 Years) and At-Risk Patients (6 to 64 Years) Aged Out No longer eligible b ased on patient's age to complete this topic RSV Immunization Patients Under 20 months Aged Out No longer eligible b ased on patient's age to complete this topic Varicella Vaccines Aged Out No longer eligible based on patient's age to complete this topic Procedures Procedure Name Priority Date/Time Associated Diagnosis Comments SCR MAMMO BI INCL CAD Routine 01/10/2019 3:12 PM EDT Encounter for screening mammogram for malignant neoplasm of breast from Last 3 Months or Most Recently Relevant to Health Maintenance Results * SCR MAMMO BI INCL CAD (01/10/2019 3:12 PM EDT) Anatomical Region Laterality Modality Radiographic Martita ging 01/02/2018 4:04 PM EDT Narrative 01/12/2019 4:02 PM EDT This is a summary report. The complete report is available in the patient's medical record. If you cannot access the medical record, please contact the sending organization for a detailed fax or copy. Full field digital screening mammography, reviewed with CAD and compared to previous. ??The breasts are composed of fatty and fibroglandular tissue. ??No suspicious mass, architectural distortion or suspicious calcifications are identified. IMPRESSION: : No mammographic evidence of malignancy. BIRADS 1-Negative; N. 5 year breast cancer risk assessment 1.2 % Lifetime breast cancer risk assessment 8.1 % Breast cancer risk category Low (<15%) Procedure Note Ani Aviles MD - 04/04/2022 This is a summary report. The complete report is available in thepatient's medical record. If you cannot access the medical record, pleasecontact the sending organization for a detailed fax or copy. Full field digital screening mammography, reviewed with CAD and comparedto previous. The breasts are composed of fatty and fibroglandular tissue.No suspicious mass, architectural distortion or suspicious calcificationsare identified. IMPRESSION: : No mammographic evidence of malignancy. BIRADS 1-Negative; N. 5 year breast cancer risk assessment 1.2 % Lifetime breast cancer risk assessment 8.1 % Breast cancer risk category Low (<15%) Jaki Akers MD IMG XR PROCEDURES from Last 3 Months or Most Recently Relevant to Health Maintenance Advance Directives Documents on File Type Date Recorded Patient Digital Forensics Examiner Expl anation Health Care Decision (hx) 08/15/2013 AD APARICIO DIRECTIVE Health Care Decision (hx) 08/15/2013 AD APARICIO DIRECTIVE Health Care Decision (hx) 08/15/2013 AD APARICIO DIRECTIVE Health Care Decision (hx) 08/15/2013 AD APARICIO DIRECTIVE Health Care Decision (hx) 08/15/2013 AD APARICIO DIRECTIVE Health Care Decision (hx) 08/15/2013 AD APARICIO DIRECTIVE Health Care Decision (hx) 08/15/2013 AD APARICIO DIRECTIVE Health Care Decision (hx) 08/15/2013 AD APARICIO DIRECTIVE Health Care Decision (hx) 08/15/2013 AD APARICIO DIRECTIVE Health Care Decision (hx) 08/15/2013 AD APARICIO DIRECTIVE Health Care Decision (hx) 07/29/2013 AD APARICIO DIRECTIVE Health Care Decision (hx) 07/29/2013 AD APARICIO DIRECTIVE Health Care Decision (hx) 07/29/2013 AD APARICIO DIRECTIVE Health Care Decision (hx) 07/29/2013 AD APARICIO DIRECTIVE Health Care Decision (hx) 07/29/2013 AD APARICIO DIRECTIVE Health Care Decision (hx) 07/29/2013 AD APARICIO DIRECTIVE Health Care Decision (hx) 07/29/2013 AD APARICIO DIRECTIVE Health Care Decision (hx) 07/29/2013 AD APARICIO DIRECTIVE Health Care Decision (hx) 07/29/2013 AD APARICIO DIRECTIVE Health Care Decision (hx) 07/29/2013 AD APARICIO DIRECTIVE Health Care Decision (hx) 07/29/2013 AD APARICIO DIRECTIVE Health Care Decision (hx) 07/29/2013 AD APARICIO DIRECTIVE Health Care Decision (hx) 07/29/2013 AD APARICIO DIRECTIVE Health Care Decision (hx) 07/29/2013 AD APARICIO DIRECTIVE Health Care Decision (hx) 07/29/2013 AD APARICIO DIRECTIVE Health Care Decision (hx) 07/29/2013 AD APARICIO DIRECTIVE Health Care Decision (hx) 07/29/2013 AD APARICIO DIRECTIVE Health Care Decision (hx) 07/29/2013 AD APARICIO DIRECTIVE Health Care Decision (hx) 07/29/2013 AD APARICIO DIRECTIVE Health Care Decision (hx) 07/29/2013 AD APARICIO DIRECTIVE Care Teams Traffic Survey Technician Relationship Specialty Start Date End Date Jaki Akers MD [address] [place] [address] PCP - General Internal Medicine 04/06/15
[2024-05-07 11:23] LABS: Vitamin D 25-OH Total 82.2 ng/mL (>30)
[2024-05-09 08:15] LABS: Cholesterol 177 mg/dL (<200); HDL Cholesterol 59 mg/dL (>40); LDL Cholesterol Calculated 108 mg/dL (<100); Triglycerides 52 mg/dL (<150)
== END 2024-05-07 08:21 | disposition home or self-care (01) ==
LOC: HO.HMGCLDS 08:20
PROVIDERS: PCP Internal Medicine; Visit Provider Internal Medicine
DX: E78.5 Hyperlipidemia, unspecified (principal); Z13.1 Encounter for screening for diabetes mellitus; Z78.0 Asymptomatic menopausal state; E78.00 Pure hypercholesterolemia, unspecified; Z87.39 Personal history of other diseases of the musculoskeletal system and connective tissue
CPT/HCPCS: 36415; 80061; 82306; 82550

== ENCOUNTER 2024-07-18 08:16 | Outpatient (REF) | payer OTHER, SELFPAY ==
--- OUTSIDE RECORDS SUMMARY | 2024-07-18 08:30 | XMS_ITS | Encounter Summary ---
Author Organization [facility] Address [address] [place] [address] Care Team Providers Care Unix Developer Name Role Phone Jaki Akers MD Primary Care Provider [phone] Reason for Referral * Imaging (Routine) - Pending Review Specialty Diagnoses / Procedures Referred By Reggie bhat Referred To Contact Radiology Diagnoses Nontoxic multinodular goiter Procedures US Head Neck Soft Tissue Neil Simpson MD [address] [place] [address] [address] [place] [phone] Phone: tel: fax: [address] [phone] Phone: tel: Referral ID Status Reason Start Date Expiration Date V isits Requested Visits Authorized [id number] Pending Review 03/25/2024 03/25/2025 1 1 Reason for Visit * Imaging (Routine) - Pending Review Specialty Diagnoses / Procedures Referred By Reggie bhat Referred To Contact Radiology Diagnoses Nontoxic multinodular goiter Procedures US Head Neck Soft Tissue Neil Simpson MD [address] [place] [address] [address] [place] [address] Phone: tel: fax: [address] [phone] Phone: tel: Referral ID Status Reason Start Date Expiration Date V isits Requested Visits Authorized [id number] Pending Review 03/25/2024 03/25/2025 1 1 Encounter Details Date Type Department Care Team (Latest Contact Info) Description 07/15/2024 8:15 AM EDT - 07/15/2024 11:59 PM EDT Hospital Encounter [facility] Ultrasound [address] [place] [phone] Nontoxic multinodular goiter Discharge Disposition: Home or Self Care Social History Tobacco Use Types Packs/Day Years Used Date Smoking Tobacco: Never Smokeless Tobacco: Never Alcohol Use Standard Drinks/Week Comments Yes 0 (1 standard drink = 0.6 oz pur e alcohol) Comments Unknown Sex and Gender Information Value Date Recorded Sex Assigned at Female 03/27/2024 8:46 AM EST Legal Sex Female 8:45 PM EST Gender Identity Female 03/27/2024 8:46 AM EST Sexual Orientation Straight 03/27/2024 8: 46 AM EST documented as of this encounter Discharge Disposition Disposition Code Departure Means Destination Home or Self Care documented in this encounter Plan of Treatment Upcoming Encounters Date Type Department Care Team (Late st Contact Info) Description 09/23/2024 10:50 AM EDT Office Visit [facility] Cardiology [address] [place] [address] Adan Monique MD [address] [place] [address] [address] [place] [address] Pending Results Name Type Priority Associated Diagnoses Date /Time US Head Neck Soft Tissue Imaging Routine Nontoxic multinodular goiter 07/15/2024 8:53 AM EDT Scheduled Orders Name Type Priority Associated Diagnoses Orde r Schedule US Head Neck Soft Tissue Imaging Routine Nontoxic multinodular goiter Once for 1 Occurrences starting 07/15/2024 until 07/15/2024 documented as of this encounter Visit Diagnoses Diagnosis Nontoxic multinodular goiter documented in this encounter Care Teams Unix Developer Relationship Specialty Start Date End Date Jaki Akers MD [address] [place] [address] PCP - General Internal Medicine 04/06/15 documented as of this encounter
--- OUTSIDE RECORDS SUMMARY | 2024-07-18 08:30 | XMS_ITS ---
[facility] Organization [facility] Address [address] [place] [address] Care Team Providers Care Stroboroma Operator Name Role Phone Oswald FRANCIS, Jaki Baez Primary Care Provider Un available Neil Rachel Unavailable [phone] Niyah Clayton Unavailable [phone] Allergies Allergen (clinical drug ingredient) Drug/Non Drug Allergy documented on EMR Reaction Allergy Type Onset Date Status dairy (uncoded) Unknown Allergy Acti ve ciprofloxacin Cipro hives Drug Allergy Act yfn codeine Codeine vomiting Drug Allergy Active Gluten Gluten Encephalopathy Allergy Activ e morphine Morphine vomiting Drug Allergy Active Penicillin hives Drug Allergy Active Medicinal quinolone and acting as antibacterial agent (FN) Quinolones dizziness Drug Allergy Active Substance with sulfonamide structure and antibacterial mechanism of action (substance) Sulfa Antibiotics hives Drug Allergy Active REASON FOR VISIT Foot pain Medications Medication SIG (Take, Route, Frequency, Duration) Notes Start Date End Date Status Magnesium Active Zinc Active Verapamil HCl 120 MG 1 tablet Orally Thr ee times a day for 30 day(s) Not-Taking Vitamin C Active Vitamin E Active Medrol johan 4mg as directed orally a s directed for 6 days 02/05/2024 Active Verapamil HCl 120 MG as directed Not-Taking Voltaren 1 % as directed Externally 06/14/2023 Active Social History Tobacco Use: Social History Observation Description Date Details (start date - stop date) Never Smoker NA - NA Tobacco Use/Smoking Question Answer Notes Are you a: nonsmoker Additional Findings: Tobacco Non-User Current no n-smoker Tobacco use other than smoking: Question Answer Notes Are you an other tobacco user? No Vital Signs Height 5ft4in in 03/19/2024 Weight 140 lbs 03/19/2024 BMI 24.03 kg/m2 03/19/2024 Blood pressure systolic 110 mm Hg 03/19/20 24 Blood pressure diastolic 60 mm Hg 024 Encounters Encounter Location Date Provider Diagnosis [facility] [address] [place] [address] 03/19/2024 Niyah Clayton Tarsal tunnel syndrome of left side G57.52 ; Pain of left foot M79.672 and Plantar fascial fibromatosis M72.2 Assessments Encounter Date Diagnosis (ICD Code) Assessment Notes Treatment Notes Treatment Clinical Notes Section Notes 03/19/2024 Tarsal tunnel syndrome of left side (ICD-10 - G57.52) 03/19/2024 Pain of left foot (ICD-10 - M79.672) 03/19/2024 Plantar fascial fibromatosis (ICD-10 - M72.2) Plan Of Treatment Next Appt Details Follow Up: prn, Reason: Progress Notes * Darcy SARMIENTO SDOB: [birth year] (63 yo F)Acc No.[id number]:03/19/2024 Progress Notes Patient:?Darcy SARMIENTO S Provider:?Niyah Clayton DPM :1960???Age:63 Y???Sex:Female D ate:03/19/2024 [facility] Pcp:Earl Camejo Subjective: * Chief Complaints: * ???Foot pain * HPI: ???Foot Pain:?Nature:?burning, radiating, shooting, tingling.?Location:?Inside, Midfoot, Rearfoot, LEFT.?Course:?resolved.?Treatments:?rest/alter normal daily activity, massage, medrol dose pack, Inserts, reduced dancing.? * ROS:?General/Constitutional:?Nausea?denies, denies.?Vomiting?denies, denies.?Hunger Thirst?denies, denies.?Loss appetite?denies, denies.?Chills?denies, denies.?Fatigue?denies, denies.?Fever?denies, denies.?Night Sweats denies, denies.?Unexplained weight loss?denies, denies.?Unexplained weight gain?denies, denies.?HEENTM:?Dentures?denies, denies.?Dizziness?denies, denies.?Glasses/contacts?admits, admits.?Retinopathy?denies, denies.?Blurred/double vision?denies, denies.?TMJ?denies, denies.?Discharge/drainage?denies, denies.?Implants?denies, denies.?Sore throat?denies, denies.?Dental implants?denies, denies.?Hard of hearing ?denies, denies.?Difficulty chewing/swallowing/speaking?denies, denies.?Nose bleeds?denies, denies.?Sore mouth?denies, denies.?Respiratory:?On Oxygen?denies, denies.?Pneumonia/pleurisy?denies, denies.?Bronchitis?denies, denies.?Emphysema?denies, denies.?Coughing?denies, denies.?Cough blood?denies, denies.?Shortness of breath?denies, denies.?Wheezing?denies, denies.?Cardiovascular:?Pacemaker?denies, denies.?MVP?denies, denies.?WPW?denies, denies.?CHF?denies, denies.?Heart attack?denies, denies.?Septal defect?denies, denies.?Rapid beat?admits, admits.?Chest pain ?denies, denies.?Atrial Fib.?denies, denies.?Murmur/Palpitations?denies, denies.?Gastrointestinal:?Hemorrhoids?denies, denies.?Stomach/Abdominal pain?denies, denies.?Dark blood stool?denies, denies.?Irritable bowel ?denies, denies.?Constipation?admits, admits.?Diarrhea?denies, denies.?Hematology:?Swelling?denies, denies.?Clots?denies, denies.?Varicose Veins?denies, denies.?Bruising?denies, denies.?Bleeding problem?denies, denies.?Genitourinary:?Blood urine?denies, denies.?Frequent/Painfu/urination/bladder control?denies, denies.?Kidney stones?admits, admits.?Infection (UTI)?denies, denies.?Nephropathy?denies, denies.?sex trans dis (STD)?denies, denies.?Prostate?denies, denies.?Musculoskeletal:?Hammertoes?denies, denies.?Bunions?admits, admits.?Back Pain?admits, admits.?Muscle Cramps/ Resting?denies, denies.?Muscle cramps / walking?denies, denies.?Generalized aches and pains?denies, denies.?Weakness?denies, denies.?Integ.:?Hernandez?denies, denies.?Scars?denies, denies.?Corns/calluses?denies, denies.?Ingrown nails?denies, denies.?Painful nails?denies, denies.?Open Sores?denies, denies.?Rashes?denies, denies.?Neurologic:?Difficulty sleeping?denies, denies.?Brain disorder?denies, denies.?Numbness?denies, denies.?Balance trouble?denies, denies.?Confusion?denies, denies.?Fainting/blackouts?denies, denies.?Tingling?admits, admits.?Tremors?denies, denies.? * Medical History:? * Surgical History:?Liver Rese ction 2014Gall bladder removal 2014vein ablation 2015Thyroid Biopsy 2013shoulder surgery 04/23/2019Wrist Injury * Hospitalization/Major Diagno stic Procedure:?Denies Past Hospitalization * Family History:?Mother: unkn own, diagnosed with Other malignant neoplasm of unspecified site, Unspecified essential hypertension, Unspecified cerebral artery occlusion with cerebral infarction.?Father: unknown, kidney/liver disease, diagnosed with Diabetic - NIDDM, Family history of arthritis.? * Social History:?Tobacco Use:?Tobacco Use/Smoking?Are you a:?nonsmoker ?Additional Findings: Tobacco Non-User?Current non-smoker ?Tobacco use other than smoking?Are you an other tobacco user??No * Medications:?TakingMedrol pa k 4mg Tablet Therapy Pack as directed orally as directed Zinc Magnesium Vitamin C Vitamin E Voltaren 1 % Gel as directed Externally Taking Medrol johan 4mg Tablet Therapy Pack as directed orally as directed Taking Zinc Taking Magnesium Taking Vitamin C Taking Vitamin E Taking Voltaren 1 % Gel as directed Externally Not-Taking/PRNVerapamil HCl 120 MG Tablet 1 tablet Orally Three times a day Verapamil HCl 120 MG Tablet as directed Medication List reviewed and reconciled with the patientNot-Taking/PRN Verapamil HCl 120 MG Tablet 1 tablet Orally Three times a day Not-Taking/PRN Verapamil HCl 120 MG Tablet as directed Medication List reviewed and reconciled with the patient * Allergies:?Penicillin: hives - AllergyCipro: hives - AllergySulfa Antibiotics: hives - AllergyMorphine: vomiting - AllergyCodeine: vomiting - AllergyGluten: Encephalopathy - Allergydairy: AllergyQuinolones: dizziness - Allergyyes[Allergies Verified] Objective: * Vitals:?Ht: 5ft4in, Wt:140, BMI:24.03, Shoe size: 7.5, BP:110/60mm Hg, Ht-cm: 162.56 cm, Wt-k.5 kg. * Examination: ???General Examination: ?GENERAL APPEARANCE:?pleasant, alert, well nourished, well developed, well hydrated, with good attention to hygene/body habitus, and in no acute distress.?ORIENTED:?person,place, and time.?Vascular: ?DP PULSES(B):?2/4, B/L.?PT PULSES(B):?2/4, B/L.?CAPILLARY FILL TIME:?3 secs. per digit, B/L.?TROPHIC CONDITION-TEXTURE/ELASTICITY/TURGOR/HAIR GROWTH(B):?normal, B/L.?TEMPERTURE GRADIENT(C):?warm to cool, proximal to distal, B/L.?EDEMA(C):?no edema.?Neurological: ?SENSORY:?Neurological exam reveals intact sensorium, pain sensation normal, vibration sensation intact, pinprick sensation is normal in the lower extremities.?TINEL'S COMPRESSION:?NOW Negative, Tarsal tunnel, Jeanie pedis?Left.?Dermatologic: ?SKIN FINDINGS:?Skin exam reveals normal texture, elasticity, and tugor. There are no masses. The interspaces are clear.?Heel Pain: ?INSPECTION REVEALS:?Mild pain on Palpation to Plantar Fascia med. and central bands, intrinsic musc., infra-calcaneal bursa, and med calc tubercle, LEFT foot--mild pop lateral left heel.?Orthopedic: ?MUSCLE STRENGTH:?5/5 all groups in a symmetrical fashion, B/L.? Assessment: * Assessment: 1.?Tarsal tunnel syndrome of left side - G57.52???Specify :Acute problem, Complicated w/ Multiple Tx Options(4), Resolving???2.?Plantar fascial fibromatosis - M72.2???3.?Pain of left foot - M79.672 (Primary)??? Plan: * Treatment: * Procedure Codes:? * Preventive Medicine:? ??Counseling:?Discussion:?-12: Office or other outpatient visit for the evaluation and management of an established patient, which required a medically appropriate history and/or examination and STRAIGHTFORWARD level of MEDICAL DECISION MAKING, 1 SELF-LIMITED OR MINOR PROBLEM, MINIMAL- NO AMOUNT/COMPLEXITY OF DATA TO BE REVIEWED/ANALYZED, AND MINIMAL RISK OF COMPLICATION/MORBIDITY. The visit on the day of the encounter encompassed interpreting the data and educating the patient as to the nature of their condition, treatment options available according to their individual PMH, meds, allergies, and overall health/living conditions, as well as any potential risks or complications that may occur from a failure to adhere to, and participate in, the recommended course of therapy. The discussion included a complete verbal, and/or written explanation of the examination results, any x-rays taken, the proposed diagnosis, and outline of the treatment plan. A schedule for future care needs was also explained. The patient verbalized an understanding of the instructions at this time and agreed to be an active participant in their treatment. If the patient should think of any questions or concerns after the visit, I have encouraged the patient to call the office.?Neuritis/Neuropathy:?Given sucess with treatment patient elects to continue with treatment plan. Continue orthotics, continue stretching exercises..? * Follow Up:?prn * Images: * Sign off status: Completed true * Provider:?Niyah Clayton DPM Date:?1 05/20/2023 Generated for Yuliya rubalcava/Jose/Skipitting on:?07/18/2024 08:30 AM EDT History and Physical Notes * HPI (History of Present Illness) Category Sub-Category Detail Notes Category Not es Foot Pain Nature: burning, radiating, shooting , tingling Location: Inside, Midfoot, Amarilis rfoot, LEFT Course: resolved Treatments: rest/alter normal da cecille activity, massage, medrol dose pack, Inserts, reduced dancing Examination Category Sub-Category Detail Notes Category Not es Heel Pain INSPECTION REVEALS: Mild pain on Palpation to Plantar Fascia med. and central bands, intrinsic musc., infra-calcaneal bursa, and med calc tubercle, LEFT foot--mild pop lateral left heel Neurological SENSORY: Neurological exa m reveals intact sensorium, pain sensation normal, vibration sensation intact, pinprick sensation is normal in the lower extremities TINEL'S COMPRESSION: NOW Negative, Tarsa l tunnel, Jeanie pedis Left Dermatologic SKIN FINDINGS: Skin exam reveal s normal texture, elasticity, and tugor. There are no masses. The interspaces are clear Orthopedic MUSCLE STRENGTH: 5/5 all groups in a symm etrical fashion, B/L General Examination GENERAL APPEARANCE: pleasant , alert, well nourished, well developed, well hydrated, with good attention to hygene/body habitus, and in no acute distress ORIENTED: person,place, and ti me Vascular DP PULSES (B): 2/4, B/L PT PULSES (B): 2/4, B/L CAPILLARY FILL TIME: 3 secs. per digit, B/L TEMPERTURE GRADIENT (C): warm to cool, p roximal to distal, B/L TROPHIC CONDITION-TEXTURE/ELASTICITY/TURGOR/HAIR GROWTH (B): normal, B/L EDEMA (C): no edema
--- OUTSIDE RECORDS SUMMARY | 2024-07-18 08:30 | XMS_ITS | Patient Health Record ---
Author Organization [employer] [facility] Address [address] [place] [address] Care Team Providers Care Shuttle Veneering Supervisor Name Role Phone Aleah Chakraborty Unavailable [phone] Reason For Referral No Information Problems Problem Type SNOMED Code ICD Code Onset Dates Problem Status W/U Status Risk Notes Problem Endometriosis (726564107) Endometriosis of other specified sites (617.8) Active confirmed Diag Problem Endometriosis (649191615) Endometriosis, site unspecified (617.9) Active confirmed Major Problem Urinary tract infectious disease (disorder) (44020937) Urinary tract infection, site not specified (599.0) Active confirmed Diag Problem Cyst of ovary (39830349) Other and unspecified ovarian cyst (620.2) Active confirmed Diag Problem Left lower quadrant pain (969961664) Abdominal pain, left lower quadrant (789.04) Active confirmed Diag Problem Gynecological examination normal (720899033818733) Routine gynecological examination (V72.31) Active confirmed Diag Problem Dietary management surveillance (676843433) Dietary surveillance and counseling (V65.3) Active confirmed Diag Problem Exercises teaching, guidance, and counseling (580803893) Exercise counseling (V65.41) Active confirmed Diag Plan Of Treatment No Information Insurance Providers Payer Name Payer Address Payer Phone Subscriber Number Group Number Insured Name Patient Relationship to Insured Coverage Start Date Coverage End Date [facility] [employer] [address] [facility], [place] [id number] ESTEFANY SARMIENTO Self - patient is the insured
--- OUTSIDE RECORDS SUMMARY | 2024-07-18 08:31 | XMS_ITS | Clinical Summary ---
Author Organization [facility] Address [address] [place] [address] Phone Care Team Providers Care Horizontal Drill Operator Name Role Phone Jaki Akers MD Primary Care Provider [phone] Allergies Active Allergy Reactions Criticality Noted Date Comments Amoxicillin 02/01/2016 Other Reaction(s): Hives/Urticaria Gluten 10/26/2014 Gluten Meal Influenza Virus Vaccines 03/14/2017 Influenza Vaccines Other Reaction(s): OTHER Pt states she became paralyzed on one side of her body after flu shot Milk Containing Products (Dairy) Diarrhea 03/20/2018 Dairy Products Penicillins 06/26/2011 Other Reaction(s): Hives/Urticaria Quinolones 06/26/2011 Rice 06/25/2015 Other Reaction(s): Numbness, tingling or swelling of the lips, tongue or mouth Sodium Chloride 12/31/2014 Salt Other Reaction(s): Hives/Urticaria Sulfa (Sulfonamide Antibiotics) 06/26/2011 Sulfa Drugs Other Reaction(s): Hives/Urticaria Patient tolerates Trimethoprim for UTI prophylaxis Medications No known medications Active Problems Problem Noted Date Diagnosed Date Celiac disease 05/13/2024 Chronic abdominal pain 05/13/2024 Overview (05/13/2024): Dr. Pierce Renal calculi 05/13/2024 Overview (05/13/2024): Dr. Washington Disease of circulatory system 01/03/2024 Mitral regurgitation 08/23/2023 Overview (05/13/2024): Last Assessment & Plan: The patient did have myxomatous changes of the mitral valve and may actually be having mitral prolapse which could be leading to her palpitations. She does some mitral regurgitation also on her last echo. Will send her back to reassess the mitral valve this patient might have mitral valve prolapse and mitral valve prolapse syndrome with palpitations. Palpitations 08/23/2023 Overview (05/13/2024): Last Assessment & Plan: This 63-year-old female has palpitations which are likely due to to both sinus tachycardia and premature atrial complexes or short atrial runs. I do not see any clear evidence of SVT although her clinical history would not exclude it. I doubt an ablation would likely be helpful and I would reserve that for failure of medical therapy. He has been on verapamil but I will transition her to propranolol. She has ocular migraines and propranolol is often helpful for prevention of migraines. The beta-eliceo effect may limit the compensatory tachycardia from hypotension. I will stop the verapamil to avoid any excessive bradycardia or hypotension. I did suggest that she maintain excellent hydration and increased salt intake to avoid hypotension. We talked about potential use of fludrocortisone or midodrine if necessary. I see no evidence of malignant arrhythmias and I tried to reassure her that these are not life-threatening but rather quite benign and can be treated successfully in the vast majority cases. Thyroid nodule 01/14/2015 Degenerative cervical spinal stenosis 12/30/2014 Bulging lumbar disc 01/19/2014 Chronic cholecystitis 06/23/2013 Liver tumor 06/23/2013 Overview (05/13/2024): Benign tumor High cholesterol 01/01/2012 Overview (05/13/2024): Last Assessment & Plan: Patient states that she has history of elevated cholesterol readings and has not had blood work in quite some time. She is considering starting red yeast rice. I do not have any recent labs. We will update lab work. 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 No change to her EKG today. Encounters Date Type Department Care Team Description 07/15/2024 8:15 AM EDT - 07/15/2024 11:59 PM EDT Hospital Encounter [facility] [address] [place] [address] Nontoxic multinodular goiter Discharge Disposition: Home or Self Care from Last 3 Months Immunizations Name Administration Dates Next Due Hepatitis A Adult (Havrix; Vaqta) 19yo and older 03/20/2006 Hepatitis B (Yzvnolp-U-Wtsoc , Recombivax HB-Adult) 19yo and older 03/20/2006 Tdap Tetanus diptheria acell ular pertussis (Boostrix; Adacel) 7yo and older 09/30/2012 Surgical History Surgery Date Site/Laterality Comments OTHER SURGICAL HISTORY PROCEDURE: ---- OTHER ----; COMMENT: EGD and Colonoscopy as normal OTHER SURGICAL HISTORY PROCEDURE: [place] UNLISTED PROCEDURE LIVER; COMMENT: liver resection CHOLECYSTECTOMY PROCEDURE: HISTORICAL CHOLECYSTECTOMY OTHER SURGICAL HISTORY PROCEDURE: LAPAROSCOPY PROCEDURE NEC; COMMENT: endometriosis OTHER SURGICAL HISTORY Right PROCEDURE: [place] UNLISTED PROCEDURE VASCULAR SURGERY; COMMENT: vein removal leg SECTION PROCEDURE: HISTORICAL DELIVERY; COMMENT: x 2 WISDOM TOOTH EXTRACTION PROCEDURE: HISTORICAL WISDOM TEETH EXTRACTION OTHER SURGICAL HISTORY PROCEDURE: [place] BIOPSY THYROID PERCUTANEOUS CORE NEEDLE; COMMENT: neg [...] Orientation Straight 03/27/2024 8: 46 AM EST Obstetrics History Last Filed Vital Signs Vital [...] Description 09/23/2024 10:50 AM EDT Office Visit [facility] [address] [place] [address] Adan Monique MD [address] [place] [address] [address]IVE [address] [place] [address] Health Maintenance Due Date Last Done Comments Hepatitis B Vaccines (2 of 3 - 19+ 3-dose series) 04/17/2006 03/20/2006 IPV Vaccines (2 of 3 - Adult catch-up series) 08/30/2006 08/02/2006 Pneumococcal Vaccine: 50+ Years (1 of 1 - PCV) 2012 Zoster Vaccines (1 of 2) 2012 Cervical Cancer Screening: P ap Smear 02/15/2020 02/14/2017, 02/14/2017 Breast Cancer Screening 01/10/2021 01/11/20 19, 01/02/2018, 12/26/2016 Depression Screening 03/18/2022 HIV Screening 03/18/2022 Social Influencers of Health Screening 03/18/2022 DTaP,Tdap,and Td Vaccines (2 - Td or Tdap) 09/30/2022 09/30/2012 Cholesterol Screening (Lipid Panel) 03/22/2023 03/22/2018 COVID-19 Vaccine (3 - 2023-2 5 season) 2023 08/11/2020, 07/21/2020 Influenza Vaccine (Season Ended) 2024 Colorectal Cancer Screening: Colonoscopy 07/25/2025 07/26/2015 RSV Immunization Adult Patients (1 - 1-dose 75+ series) 2037 Hepatitis A Vaccines Aged Out 03/20/2006 No long er eligible based on patient's age to complete this topic Hepatitis C Screening Completed 05/14/2015 HIB Vaccines Aged Out No longer eligi [...] patient's age to complete this topic Meningococcal B Vacine Aged Out No lo nger eligible based on patient's age to complete [...] screening mammogram for malignant neoplasm of breast LIPID PANEL Routine 03/22/2018 HM HPV Routine 02/14/2017 COLONOSCOPY Routine 07/26/2015 HEPATITIS C SCREENING Routine 05/14/2015 from Last 3 Months or Most Recently [...] % Breast cancer risk category Low (<15%) us Jaki Akers MD IMG XR PROCEDURES Final Res ult * (ABNORMAL) Lipid panel (03/22/2018) LDL/HDL Ratio 3 0 - 4 Triglycerides 42 0 - 150 mg/dL Cholesterol 201(A) 0 - 200 mg/dL HDL 75 >=40 mg/dL LDL Cholesterol 118(A) 0 - 100 mg/dL Blood Venous blood specimen / Unknown Historical Provider LAB BLOOD ORDERABLES Alena l Result * Cervical Cancer Screening: HPV (02/14/2017) [facility] Cervical Cancer Screening: HPV negative, abstracted [facility] Provider HEALTH MAINTENANCE Final Result * Colonoscopy (07/26/2015) [facility] Colonoscopy abnormal, abstracted Anatomical Region Laterality Modality Other [facility] Provider HEALTH MAINTENANCE Final Result * Hepatitis C Screening (05/14/2015) [facility] Hepatitis C Screening abstracted [facility] Provider HEALTH MAINTENANCE Final Result from Last 3 Months or Most Recently Relevant to Health [place] [id number] [employer] Advance Directives Documents on File Type Date Recorded Patient Press Hand Expl anation Health Care Decision (hx) 08/15/2013 [...] (hx) 07/29/2013 AD APARICIO DIRECTIVE Care Teams Horizontal Drill Operator Relationship Specialty Start Date End Date Jaki Akers MD [address] [place] [address] PCP - General Internal Medicine 04/06/15
--- OUTSIDE RECORDS SUMMARY | 2024-07-18 08:31 | XMS_ITS ---
Author Organization [facility] Address [address] [place] [address] Care Team Providers Care Special Education Math Teacher Name Role Phone Oswald FRANCIS, Jaki Baez Primary Care Provider Un available Neil Rachel Unavailable [phone] Niyah Clayton Unavailable [phone] REASON FOR VISIT buy pedLaTherm sports # 38 Encounters Encounter Location Date Provider Diagnosis [facility] [address] [place] [address] 02/05/2024 Niyah Clayton Plan Of Treatment No Information Progress Notes * Darcy SARMIENTO SDOB: [birth year] (63 yo F)Acc No.[id number]:02/05/2024 Patient:?Darcy Sarmiento Ly :1960???Age:63 Y???Sex:Female Address: [place] [address] * true * Date:? Generated for Solangei khadar/Jose/eTransmitting on:?07/18/2024 08:30 AM EDT
--- OUTSIDE RECORDS SUMMARY | 2024-07-18 08:31 | XMS_ITS | Continuity of Care Document ---
Author Organization [facility] [address] [place] [address] Phone [phone] Care Team Providers Care Director Of Agriculture Name Role Phone JerrodlynJaki Care Team Information Small Business Consultant [phone] Problems Active Problems Provider Date Endometriosis (clinical) [...] Qnty Indications Ordering Provider Date Verapamil HCL [id number] Tablets ER 1 tab by mouth every day Jaki Akers Vital Signs Date Vital Result Comment 07/17/2023 1:38pm BP Systolic 130 mmHg BP Diastolic 80 mmHg Heart Rate 72 /min Height 64 inches 5'4 Weight 148.00 lb BMI (Body Mass Index) 25.4 kg/m2 Results Test Acquired Date Facility Test Result H/L Range N ote TSH Rfx on Abnormal to Free T4 07/17/2023 [facility] TSH Rfx on Abnormal to [...] Description No Information Available Referrals Refer to Dr Reason for Referral Status Appt Madi e Neil Simpson M.D. Created [address] [place] [address] Drive [address] [place] [address] [phone] Neil Simpson M.D. Closed [address] [place] [address] Drive [address] [place] [address] [phone] Neil Simpson M.D. Created [address] [place] [address] Drive [address] [place] [address] [phone]
--- OUTSIDE RECORDS SUMMARY | 2024-07-18 08:31 | XMS_ITS ---
Author Organization [facility] catarino [place] Address [address] [facility] [place] [address] Care Team Providers Care Transportation Officer Name Role Phone Oswald FRANCIS, Jaki Baez Primary Care Provider Un available Neil Rachel Unavailable [phone] Allergies Allergen (clinical drug ingredient) Drug/Non Drug [...] hives Drug Allergy Active REASON FOR VISIT Last PCP visit 03/2024, Heel pain Medications Medication SIG (Take, Route, Frequency, Duration) Notes Start Date End Date Status Vitamin E Active Verapamil HCl 120 MG 1 tablet Orally Thr ee times a day for 30 day(s) Not-Taking Diclofenac Sodium 75 MG 1 tablet with fo od Orally Twice a day for 30 days 05/13/2024 Active Voltaren 1 % as directed Externally 06/14/2023 Not-Taking Verapamil HCl 120 MG as directed Not-Taking Medrol johan 4mg as directed orally a s directed for 6 days 02/05/2024 Not-Taking Magnesium Active Zinc Active Vitamin C Active Social History Tobacco Use: Social History Observation Description Date Details (start date - stop date) Never Smoker NA - NA Alcohol Screen Question Answer Notes Did you have a drink containing alcohol in the p ast year? Yes Points 0 Interpretation Negative Tobacco use other than smoking: Question Answer Notes Are you an other tobacco user? 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 confirmed Problem Acquired hallux rigidus (8897064) Hallux rigidus, right foot (M20.21) Active confirmed Problem Acquired hallux valgus (22953867) Hallux valgus (acquired), left foot (M20.12) Active confirmed Vital Signs Height 5ft 4in in 05/13/2024 Weight 140 lbs 05/13/2024 BMI 24.03 kg/m2 05/13/2024 Blood pressure systolic 120 mm Hg 05/13/19 25 Blood pressure diastolic 69 mm Hg 025 Encounters Encounter Location Date Provider Diagnosis [facility] [address] 05/13/2024 Neil Rachel Plantar fascial fibromatosis M72.2 ; Pain in left foot M79.672 ; Pain in right foot M79.671 ; Hallux rigidus, right foot M20.21 and Hallux valgus (acquired), left foot M20.12 Assessments Encounter Date Diagnosis (ICD Code) Assessment Notes Treatment Notes Treatment Clinical Notes Section Notes 05/13/2024 Plantar fascial fibromatosis (ICD-10 - M72.2) Patient Educated with: HEEL CORD STRETCHES.pdf (HEEL CORD STRETCHES.pdf) Patient Educated with: RICE THERAPY.pdf (RICE THERAPY.pdf) 05/13/2024 Pain in left foot (ICD-10 - M79.672) 05/13/2024 Pain in right foot (ICD-10 - M79.671) 05/13/2024 Hallux rigidus, right foot (ICD-10 - M20.21) 05/13/2024 Hallux valgus (acquired), left foot (ICD-10 - M20.12) Plan Of Treatment Medication Medication Name Sig Start Date Stop Date Notes Diclofenac Sodium 75 MG 1 tablet with fo od Orally Twice a day for 30 days 05/13/2024 Treatment Notes Assessment Notes Plantar fascial fibromatosis Patient Edu cated with: HEEL CORD STRETCHES.pdf (HEEL CORD STRETCHES.pdf) Patient Educated with: RICE THERAPY.pdf (RICE THERAPY.pdf) Next Appt Details Follow Up: prn, Reason: Progress Notes * Darcy SARMIENTO SDOB: [birth year] (63 yo F)Acc No.[id number]:05/13/2024 Progress Note Patient:?Darcy SARMIENTO Provider:?Neil Rachel D.P.M. :1960???Age:63 Y???Sex:Female D ate:05/13/2024 Address: [address], [facility], [id number] Pcp:Earl Camejo Subjective: * Chief Complaints: * ???Last PCP visit 03/2024Hee l pain * HPI: ???Heel pain:?Nature:?sharp pain , aching.?Location:?Proximal plantar aspect of Heel , LEFT.?Duration:?more than six months.?Onset/Cause:?unknown , denies trauma.?Course:?worse.?Aggravated:?walking first thing in the morning/after rest.?Treatments:?change in shoes, Medrol dose johan, Orthotics.?Severity/Quality:?States 7 out of 10.? * ROS:?General/Constitutional:?Nausea?denies.?Vomiting?denies.?Hunger Thirst?denies.?Loss appetite?denies.?Chills?denies.?Fatigue?denies.?Fever?denies.?Night Sweats?denies.?Unexplained weight loss?denies.?Unexplained weight gain?denies.?HEENTM:?Dentures?denies.?Dizziness?denies.?Glasses/contacts?admits.?Retinopathy?de nies.?Blurred/double vision?denies.?TMJ?denies.?Discharge/drainage?denies.?Implants?denies.?Sore throat?denies.?Dental implants?denies.?Hard of hearing ?denies.?Difficulty chewing/swallowing/speaking?denies.?Nose bleeds?denies.?Sore mouth?denies.?Respiratory:?On Oxygen?denies.?Pneumonia/pleurisy?denies.?Bronchitis?denies.?Emphysema?denies.?C oughing?denies.?Cough blood?denies.?Shortness of breath?denies.?Wheezing?denies.?Cardiovascular:?Pacemaker?denies.?MVP?denies.?WPW?denies.?CHF?denies.?Heart attack?denies.?Septal defect?denies.?Rapid beat?admits.?Chest pain ?denies.?Atrial Fib.?denies.?Murmur/Palpitations?denies.?Gastrointestinal:?Hemorrhoids?denies.?Stomach/Abdominal pain?denies.?Dark blood stool?denies.?Irritable bowel ?denies.?Constipation?admits.?Diarrhea?denies.?Hematology:?Swelling?denies.?Clots?denies.?Varicose Veins?denies.?Bruising?denies.?Bleeding problem?denies.?Genitourinary:?Blood urine?denies.?Frequent/Painfu/urination/bladder control?denies.?Kidney stones?admits.?Infection (UTI)?denies.?Nephropathy?denies.?sex trans dis (STD)?denies.?Prostate?denies.?Musculoskeletal:?Hammertoes?denies.?Bunions?admits.?Back Pain?admits.?Muscle Cramps/ Resting?denies.?Muscle cramps / walking?denies.?Generalized aches and pains?denies.?Weakness?denies.?Integ.:?Hernandez?denies.?Scars?denies.?Corns/calluses?denies.?Ingrown nails?denies.?Painful nails?denies.?Open Sores?denies.?Rashes?denies.?Neurologic:?Difficulty sleeping?denies.?Brain disorder?denies.?Numbness?denies.?Balance trouble?denies.?Confusion?denies.?Fainting/blackouts?denies.?Tingling?admits.?Tr emors?denies.? * Medical History:? * Surgical History:?Liver Rese ction 2014Gall bladder removal 2014vein ablation 2015Thyroid Biopsy 2013shoulder surgery 04/23/2019Wrist Injury * Hospitalization/Major Diagno stic Procedure:?No Hospitalization History. * Family History:?Mother: unkn own, diagnosed with Other malignant neoplasm of unspecified site, Unspecified essential hypertension, Unspecified cerebral artery occlusion with cerebral infarction.?Father: unknown, kidney/liver disease, diagnosed with Diabetic - NIDDM, Family history of arthritis.? * Social History:?Tobacco Use:?Tobacco use other than smoking?Are you an other tobacco user??No ?Tobacco Control (Standard)?Tobacco use:?Nonsmoker ?Additional Findings: Tobacco non-user?Current nonsmoker ???Drugs/Alcohol:?Drugs?Have you used drugs other than those for medical reasons in the past 12 months??No ?Alcohol Screen?Did you have a drink containing alcohol in the past year??Yes ?Points?0 ?Interpretation?Negative ???Miscellaneous:?Caffeine: yes, frequency: 2 to 3 cups per week. ?Children: yes, 2. ?Exercise: yes, dancing. ?Marital status: . ?Occupation: Retired. * Medications:?TakingZinc Magn esium Vitamin C Vitamin E Taking Zinc Taking Magnesium Taking Vitamin C Taking Vitamin E Not-Taking/PRNMedrol johan 4mg Tablet Therapy Pack as directed orally as directed Voltaren 1 % Gel as directed Externally Verapamil HCl 120 MG Tablet 1 tablet Orally Three times a day Verapamil HCl 120 MG Tablet as directed Medication List reviewed and reconciled with the patientNot-Taking/PRN Medrol johan 4mg Tablet Therapy Pack as directed orally as directed Not-Taking/PRN Voltaren 1 % Gel as directed Externally Not-Taking/PRN Verapamil HCl 120 MG Tablet 1 tablet Orally Three times a day Not-Taking/PRN Verapamil HCl 120 MG Tablet as directed Medication List reviewed and reconciled with the patient * Allergies:?Penicillin: hives - AllergyCipro: hives - AllergySulfa Antibiotics: hives - AllergyMorphine: vomiting - AllergyCodeine: vomiting - AllergyGluten: Encephalopathy - Allergydairy: AllergyQuinolones: dizziness - Allergyyes[Allergies Verified] Objective: * Vitals:?Ht: 5ft 4in, Wt:140, BMI:24.03, Shoe size: 7.5, BP:120/69mm Hg, Ht-cm: 162.56 cm, Wt-k.5 kg. * Examination: ???General Examination: ?GENERAL APPEARANCE:?pleasant, alert, well nourished, well developed, well hydrated, with good attention to hygene/body habitus, and in no acute distress.?ORIENTED:?person,place, and time.?Neurological: ?SENSORY:?Neurological exam reveals intact sensorium, pain sensation normal, vibration sensation intact, pinprick sensation is normal in the lower extremities, pt denies, anesthesia, burning, paresthesia, tingling, B/L.?TINEL'S COMPRESSION:?Negative tarsal tunnel, kevin pedis, and medial calcaneal nerves, B/L.?BABINSKI REFLEX:?Absent, B/L.?Vascular: ?DP PULSES (B):?2/4, B/L.?PT PULSES (B):?2/4, B/L.?CAPILLARY FILL TIME:?3 secs. per digit, B/L.?TROPHIC CONDITION-TEXTURE/ELASTICITY/TURGOR/HAIR GROWTH (B):?normal, B/L.?TEMPERTURE GRADIENT (C):?warm to cool, proximal to distal, B/L.?EDEMA (C):?no edema.?Dermatologic: ?SKIN FINDINGS:?Skin exam reveals normal texture, elasticity, and tugor. There are no masses. The interspaces are clear.?Heel Pain: ?INSPECTION REVEALS:?POP Plantar Fascia med. and central bands, intrinsic musc., infracalcaneal bursa, and med calc tubercle . No pain: posterior/superior heel, achilles bursa/tendon, sinus tarsi, peroneals; no limited STJ ROM, calor, or eccymosis. Pain on Heel Compression absent , LEFT foot.?Orthopedic: ?MUSCLE STRENGTH:?5/5 all groups in a symmetrical fashion B/L.?GAIT ABNORMALITY:?pronated, abducted, B/L.?BUNION:?Medially prominent 1st MPJ , Dorsally prominent 1st MPJ , (+) Pain on palpation , B/L.? Assessment: * Assessment: 1.?Plantar fascial fibromato sis - M72.2 (Primary)???2.?Pain in left foot - M79.672???3.?Pain in right foot - M79.671???4.?Hallux rigidus, right foot - M20.21???5.?Hallux valgus (acquired), left foot - M20.12??? Plan: * Treatment: * Procedure Codes:? * Preventive Medicine:? ??Counseling:?Discussion:?-13: Office or other outpatient visit for the evaluation and management of an established patient, which required a medically appropriate history and/or examination and LOW level of DECISION MAKING for: 1 STABLE ACUTE UNCOMPLICATED PROBLEM, 2 OR MORE MINOR PROBLEMS, OR 1 STABLE CHRONIC PROBLEM, THAT POSE(S) A LOW RISK FOR MORBIDITY/MORTALITY. The visit on the day of the [...] have encouraged the patient to call the office.? ??Screening/Special Tests:?Fall Risk?Assessment:?Performed ?Screening:?No falls in the past year ?FALLS: Screening for Future Fall Risk?Have you had two or more falls in the past year??No ?Have you had any falls with injury in the past year??No ???If pain continues I have suggested an injection of cortisone at a future visit. * Follow Up:?prn * Images: * Sign off status: Completed true * Provider:?Neil Rachel D.P.M. Date:?04/17 Generated for Yuliya rubalcava/Jose/Skipitting on:?07/18/2024 08:30 AM EDT History and Physical Notes * HPI (History of Present Illness) Category Sub-Category Detail Notes Category Not es Heel pain Duration: more than six months Nature: sharp pain , aching Severity/Quality: States 7 out of 10 Location: Proximal plantar asp ect of Heel , LEFT Onset/Cause: unknown , denies tra jennifer Aggravated: walking first thing in the morning/after rest Course: worse Treatments: change in shoes, Med rol dose johan, Orthotics Misc: Examination Category Sub-Category Detail Notes Category Not es Heel Pain INSPECTION REVEALS: POP Plantar Fascia med. and central bands, intrinsic musc., infracalcaneal bursa, and med calc tubercle . No pain: posterior/superior heel, achilles bursa/tendon, sinus tarsi, peroneals; no limited STJ ROM, calor, or eccymosis. Pain on Heel Compression absent , LEFT foot Neurological SENSORY: Neurological exa m reveals intact sensorium, pain sensation normal, vibration sensation intact, pinprick sensation is normal in the lower extremities, pt denies, anesthesia, burning, paresthesia, tingling, B/L BABINSKI REFLEX: Absent, B/L TINEL'S COMPRESSION: Negative tarsal richi kassandra, kevin pedis, and medial calcaneal nerves, B/L Dermatologic SKIN FINDINGS: Skin exam reveal s normal texture, elasticity, and tugor. There are no masses. The interspaces are clear Orthopedic GAIT ABNORMALITY: pronated, abducted, B/L BUNION: Medially prominent 1 st MPJ , Dorsally prominent 1st MPJ , (+) Pain on palpation , B/L MUSCLE STRENGTH: 5/5 all groups in a symmetrical fashion B/L General Examination GENERAL APPEARANCE: pleasant , [...]
--- OUTSIDE RECORDS SUMMARY | 2024-07-18 08:31 | XMS_ITS | Patient Health Record ---
Author Organization [facility] Address [address] [place] [address] Care Team Providers Care Electroencephalographic Technician Name Role Phone Oswald FRANCIS, Jaki Baez Primary Care Provider Un available Neil Rachel Unavailable [phone] Niyah Clayton Unavailable [phone] Allergies Allergen (clinical drug ingredient) Drug/Non Drug [...] (substance) Sulfa Antibiotics hives Drug Allergy Active Reason For Referral Diagnosis 1 Hallux rigidus, righ t foot (M20.21) Diagnosis 2 Hallux valgus (acqui red), left foot (M20.12) Diagnosis 3 Plantar fascial fibr omatosis (M72.2) Diagnosis 4 Pain in right foot ( M79.671) Diagnosis 5 Pain in left foot (M 79.672) Referring Provider First Name Jaki Hill Referring Provider Last Name Oswald Referring Provider Speciality Internal M edicine [facility] Referred Provider Niyah Clayton Referred Address [address] [facility],[place], [place],[address],[place] Referred Provider Specialty Podiatry Referral Priority Routine Diagnosis 1 Hallux rigidus, righ t foot (M20.21) Referring Provider First Name Jaki Hill Referring Provider Last Name Oswald Referring Provider Speciality Internal M edicine [facility] Referred Provider Neil Rachel Referred Address [address],[place],[address],[place] Referred Provider Specialty Podiatry Referral Priority Routine Medications Medication SIG (Take, Route, Frequency, Duration) Notes Start Date End Date Status Medrol johan 4mg as directed orally a s directed for 6 days 02/05/2024 Not-Taking Magnesium Active Zinc Active Vitamin E Active Vitamin C Active Verapamil HCl 120 MG 1 tablet Orally Thr ee times a day for 30 day(s) Not-Taking Diclofenac Sodium 75 MG 1 tablet with fo od Orally Twice a day for 30 days 05/13/2024 Active Voltaren 1 % as directed Externally 06/14/2023 Not-Taking Verapamil HCl 120 MG as directed Not-Taking Social History Tobacco Use: Social History Observation [...] Status Risk Notes Problem Plantar fascial fibromatosis (86708380) Plantar fascial fibromatosis (M72.2) Active confirmed Problem Acquired hallux valgus (05188020) Hallux valgus (acquired), left foot (M20.12) Active confirmed Problem Acquired hallux rigidus (2660081) Hallux rigidus, right foot (M20.21) Active confirmed Vital Signs Blood pressure diastolic 69 mm Hg 05/13/2024 Height 5ft 4in in 05/13/2024 Blood pressure systolic 120 mm Hg 05/13/2024 Weight 140 lbs 05/13/2024 BMI 24.03 kg/m2 05/13/2024 Encounters Encounter Location Date [facility] [address] [facility]24 Niyahelisabeth Clayton Tarsal tunnel syndrome of left side G57.52 and Pain of left foot M79.672 [facility] [address] 03/19/2024 Niyah Clayton Tarsal tunnel syndrome of left side G57.52 ; Pain of left foot M79.672 and Plantar fascial fibromatosis M72.2 [facility] [place] [address] [place] [address] 05/13/2024 Neil Rachel Plantar fascial fibromatosis M72.2 ; Pain in left foot M79.672 ; Pain in right foot M79.671 ; Hallux rigidus, right foot M20.21 and Hallux valgus (acquired), left foot M20.12 [facility] [place] [address] [place] [address] 02/05/2024 Niyah Clayton Assessments Encounter Date Diagnosis (ICD Code) Assessment Notes Treatment Notes Treatment Clinical Notes Section Notes 02/05/2024 Tarsal tunnel syndrome of left side (ICD-10 - G57.52) 03/19/2024 Tarsal tunnel syndrome of left side (ICD-10 - G57.52) 05/13/2024 Plantar fascial fibromatosis (ICD-10 - M72.2) Patient Educated with: HEEL CORD STRETCHES.pdf (HEEL CORD STRETCHES.pdf) Patient Educated with: RICE THERAPY.pdf (RICE THERAPY.pdf) 02/05/2024 Pain of left foot (ICD-10 - M79.672) 03/19/2024 Plantar fascial fibromatosis (ICD-10 - M72.2) 03/19/2024 Pain of left foot (ICD-10 - M79.672) 05/13/2024 Pain in left foot (ICD-10 - M79.672) 05/13/2024 Pain in right foot (ICD-10 - M79.671) 05/13/2024 Hallux rigidus, right foot (ICD-10 - M20.21) 05/13/2024 Hallux valgus (acquired), left foot (ICD-10 - M20.12) Plan Of Treatment Pending Test Test Name Order Date X ray : Foot, left 3V 04/23/2023 X ray : Foot, right 3V 04/23/2023 Insurance Providers Payer Name Payer Address Payer Phone Subscriber Number Group Number Insured Name Patient Relationship to Insured Coverage Start Date Coverage End Date [employer] [address] [place] [address] [id number] Ezra Chaparro Spouse - patient is the spouse of the insured Medical (General) History Medical History History ICD Code Back,Hip,and Knee pain covid-19 Gall bladder problems Headaches/Migraines Menieres disease raynauds disease Sciatica Measles Mumps Chicken pox Surgical History Surgery Date(Month/Year) Liver Resection 2014 Gall bladder removal 2014 vein ablation 2014 Thyroid Biopsy 2012 shoulder surgery 04/23/2019 Wrist Injury
[2024-07-18 10:59] LABS: Thyroid Stimulating Hormone 1.12 uIU/mL (0.32-4.0)
== END 2024-07-18 08:17 | disposition home or self-care (01) ==
LOC: HO.HMGCLDS 08:16
PROVIDERS: PCP Internal Medicine; Visit Provider Internal Medicine
DX: E04.2 Nontoxic multinodular goiter (principal)
CPT/HCPCS: 36415; 84443

== ENCOUNTER 2024-08-05 07:50 | Outpatient (AMB) | payer OTHER, SELFPAY ==
--- OUTSIDE RECORDS SUMMARY | 2024-08-05 07:55 | XMS_ITS ---
Author Organization [facility] Address [address] [facility] [place] [address] Care Team Providers Care Helpdesk Analyst Name Role Phone Oswald FRANCIS, Jaki Baez Primary Care Provider Un available Neil Rachel Unavailable [phone] Niyah Clayton Unavailable [phone] Allergies Allergen (clinical drug ingredient) Drug/Non Drug [...] 024 Encounters Encounter Location Date Provider Diagnosis [facility] [place] [address] [place] [address] 03/19/2024 Niyah Clayton Tarsal tunnel syndrome of [...] Darcy SARMIENTO SDOB: [birth year] (63 yo F)Acc No.[id number]:03/19/2024 Progress Notes Patient:?Darcy SARMIENTO S Provider:?Niyah Clayton DPM :1960???Age:63 Y???Sex:Female D ate:03/19/2024 [id number] Pcp:Earl Camejo Subjective: * Chief Complaints: * [...] DPM Date:?1 05/20/2023 Generated for Yuliya rubalcava/Jose/Skipitting on:?08/05/2024 07:55 AM EDT History and Physical Notes * HPI (History of Present Illness) Category Sub-Category Detail Notes Category Not es Foot Pain Nature: burning, radiating, shooting , tingling Location: Inside, Midfoot, [place] rfoot, LEFT Course: resolved Treatments: rest/alter normal [...]
--- OUTSIDE RECORDS SUMMARY | 2024-08-05 07:55 | XMS_ITS | Patient Health Record ---
Author Organization [facility] Address [address] [place] [address] Care Team Providers Care Electric Arc Furnace Operator Name Role Phone Oswald FRANCIS, Jaki Baez Primary Care Provider Un available Neil Rachel Unavailable [phone] Niyah Clayton Unavailable [phone] Allergies Allergen (clinical drug ingredient) Drug/Non Drug [...] Provider Speciality Internal M edicine [facility] Referred Provider Niyah Clayton Referred Address [address] [facility],[place],[address],[place] Referred Provider Specialty Podiatry Referral Priority Routine Diagnosis 1 Hallux rigidus, righ t foot (M20.21) Referring Provider First Name Jaki Hill Referring Provider Last Name Oswald Referring Provider Speciality Internal M edicine [facility] rhiannon Referred Provider Neil Rachel Referred Address [address],[place],[address],[place] Referred Provider Specialty Podiatry Referral Priority Routine [...] Status Risk Notes Problem Plantar fascial fibromatosis (79976827) Plantar fascial fibromatosis (M72.2) Active confirmed Problem Acquired hallux valgus (36557431) Hallux valgus (acquired), left foot (M20.12) Active confirmed Problem Acquired hallux rigidus (6683351) Hallux rigidus, right foot (M20.21) Active confirmed Vital Signs Blood pressure diastolic 69 mm Hg 05/13/2024 Height 5ft 4in in 05/13/2024 Blood pressure systolic 120 mm Hg 05/13/2024 Weight 140 lbs 05/13/2024 BMI 24.03 kg/m2 05/13/2024 Encounters Encounter Location Date [facility] [address] [facility]/05/[facility]24 Niyahelisabeth Clayton Tarsal tunnel syndrome of left side G57.52 and Pain of left foot M79.672 [facility] [address] 03/19/2024 Niyah Clayton Tarsal tunnel syndrome of left side G57.52 ; Pain of left foot M79.672 and Plantar fascial fibromatosis M72.2 [facility] [place] [address] [place] [address] 05/13/2024 Neil Rachel Plantar fascial fibromatosis M72.2 ; Pain in left foot M79.672 ; Pain in right foot M79.671 ; Hallux rigidus, right foot M20.21 and Hallux valgus (acquired), left foot M20.12 [facility] [place] [address] [place] [address] 02/05/2024 Niyah Clayton Assessments Encounter Date Diagnosis [...] [employer] [address] [place] [address] [phone] [id number] Ezra Chaparro Spouse - patient is the [...]
--- OUTSIDE RECORDS SUMMARY | 2024-08-05 07:55 | XMS_ITS ---
Author Organization [facility] [place] Address [address] [facility] [place] [address] Care Team Providers Care Train Controller Name Role Phone Oswald FRANCIS, Jaki Baez Primary Care Provider Un available Neil Rachel Unavailable [phone] Allergies Allergen (clinical drug ingredient) Drug/Non Drug [...] Status Risk Notes Problem Plantar fascial fibromatosis (49118333) Plantar fascial fibromatosis (M72.2) Active confirmed Problem Acquired hallux rigidus (8936621) Hallux rigidus, right foot (M20.21) Active confirmed Problem Acquired hallux valgus (62717882) Hallux valgus (acquired), left foot (M20.12) Active confirmed Vital Signs Height 5ft 4in in 05/13/2024 Weight 140 lbs 05/13/2024 BMI 24.03 kg/m2 05/13/2024 Blood pressure systolic 120 mm Hg 05/13/19 25 Blood pressure diastolic 69 mm Hg 025 Encounters Encounter Location Date Provider Diagnosis [facility] [address] 05/13/2024 Neil Rachel Plantar fascial fibromatosis M72.2 [...] Darcy SARMIENTO SDOB: [birth year] (63 yo F)Acc No.[id number]:05/13/2024 Progress Note Patient:?Darcy SARMIENTO Provider:?Neil Rachel D.P.M. :1960???Age:63 Y???Sex:Female D ate:05/13/2024 Address: [address], [facility], [facility] Pcp:Earl Camejo Subjective: * Chief Complaints: * [...] Provider:?Neil Rachel D.P.M. Date:?04/17 Generated for Yuliya rubalcava/Jose/Tony on:?08/05/2024 07:55 AM EDT History and Physical [...]
--- OUTSIDE RECORDS SUMMARY | 2024-08-05 07:55 | XMS_ITS | Patient Health Record ---
Author Organization [employer] [facility] Address [address] [facility] [address] [place] [address] Care Team Providers Care Prism Measurer Name Role Phone Aleah Chakraborty Unavailable [phone] Reason For Referral No Information Problems Problem Type SNOMED Code ICD Code Onset Dates Problem Status W/U Status Risk Notes Problem Endometriosis (003507514) Endometriosis of other specified sites (617.8) Active confirmed Diag Problem Endometriosis (972727990) Endometriosis, site unspecified (617.9) Active confirmed Major Problem Urinary tract infectious disease (disorder) (60708221) Urinary tract infection, site not specified (599.0) Active confirmed Diag Problem Cyst of ovary (75629492) Other and unspecified ovarian cyst (620.2) Active confirmed Diag Problem Left lower quadrant pain (004982144) Abdominal pain, left lower quadrant (789.04) Active confirmed Diag Problem Gynecological examination normal (934066406070427) Routine gynecological examination (V72.31) Active confirmed Diag Problem Dietary management surveillance (076258962) Dietary surveillance and counseling (V65.3) Active confirmed Diag Problem Exercises teaching, guidance, and counseling (707433754) Exercise counseling (V65.41) Active confirmed Diag Plan Of Treatment No Information Insurance Providers Payer Name Payer Address Payer Phone Subscriber Number Group Number Insured Name Patient Relationship to Insured Coverage Start Date Coverage End Date [facility] [address] [facility], [place] [id number] [phone] [id number] ESTEFANY SARMIENTO Self - patient is the insured
--- NOTE | 2024-08-05 07:56 | MHC.OFFVIS ---
Vital Signs 08/05/24 07:57 Height 5 ft 4 in Weight 147 lb BMI 25.2 BP 110/70 Intake Visit Reasons: CULL GRADER annual exam Photo Colorer: Photo Colorer Present (Yakelin) Allergies Quinolones Allergy (Intermediate, Verified 08/05/24 07:57) SYNCOPE Penicillins [PENICILLINS] Allergy (Mild, Verified 08/05/24 07:57) HIVES sulfamethoxazole [From Septra] Allergy (Mild, Verified 08/05/24 07:57) Hives trimethoprim [From Septra] Allergy (Mild, Verified 08/05/24 07:57) Hives acetaminophen [Percocet] Allergy (Unknown, Verified 08/05/24 07:57) Unknown amoxicillin Allergy (Unknown, Verified 08/05/24 07:57) hives gluten Allergy (Unknown, Verified 08/05/24 07:57) Seizure levofloxacin [Levaquin] Allergy (Unknown, Verified 08/05/24 07:57) *ALL QUINOLONES -SYNCOPE oxycodone Allergy (Unknown, Verified 08/05/24 07:57) Unknown penicillin V Allergy (Unknown, Verified 08/05/24 07:57) hives sodium chloride Allergy (Unknown, Verified 08/05/24 07:57) HIVES sodium chloride for inhalation [From Saline] Allergy (Unknown, Verified 08/05/24 07:57) Unknown dairy Allergy (Unknown, Uncoded 06/24/24 10:06) stomach upset Influenza Vac A&B Surf Ant Adj Allergy (Unknown, Uncoded 06/24/24 10:06) hives pickle juice Allergy (Unknown, Uncoded 06/24/24 10:06) Hives Rice (Diagnostic) Allergy (Unknown, Uncoded 06/24/24 10:06) hives HPI Comments Details: She is a postmenopausal woman presenting for her annual assembly machine set up mechanic examination. She is doing well with no assembly machine set up mechanic concerns. Currently sexually active. Denies any vaginal dryness or irritation. 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 Last pap smear; 2021. Last mammogram; 2023. Colonoscopy is UTD. Denies any family history of breast, ovarian or colon cancer. [facility] Medical History Hx of renal calculi History of supraventricular tachycardia Endometriosis determined by laparoscopy Decreased hearing Intermittent lightheadedness Hx of hematuria Hx of recurrent urinary tract infection COVID-19 vaccine dose declined Refused influenza vaccine Tenosynovitis of finger Achilles tendinitis of right lower extremity Positional lightheadedness Irritable bowel syndrome Leg cramps Family history of thyroid disease in mother Thyroid nodule Lumbar arthropathy Endometriosis History of IBS delivery delivered Hyperlipidemia Hx of atrial flutter Liver cyst GERD (gastroesophageal reflux disease) Surgical History H/O shoulder surgery Hx of section Hx of resection of liver Hx of cholecystectomy Family History Father HTN (hypertension) Alzheimer dementia Mother Stroke Social History Household Members: Spouse Housing: House Alcohol intake: never Patient Tobacco Use Status: Never used Tobacco e-Cigarette/Vaping Use: Never Used Second Hand Smoke Exposure: No service: No Current occupational status: unemployed and retired 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 Current occupational exposures/hazards: No Sexual orientation: Straight/Heterosexual Gender identity: Female Cognitive needs: No Hearing needs: No Vision needs: Yes Female Reproductive History Menstrual Age of Menarche: 16 Menopause type: natural Total pregnancies: 2 Full term: 2 Number of Living Children: 2 Date of last pap smear: 07/11/21 (neg pap and hpv) Date of Mammogram: 08/28/23 (Birad 1) Review of Systems Const All systems reviewed & are unremarkable except as noted in HPI and below Reports as per HPI Eyes Reports no additional complaints ENT Reports no additional complaints Card Reports no additional complaints Resp Reports no additional complaints GI Reports as per HPI and Reports no additional complaints Reports as per HPI Musc Reports no additional complaints Skin/Breast Reports as per HPI Neuro Reports no additional complaints Psych Reports no additional complaints Endo Reports no additional complaints Giovanni/Lymph Reports no additional complaints Aller/Immun Reports no additional complaints Physical Exam Const General: cooperative, healthy appearing, no acute distress, well developed and alert Orientation/consciousness: patient oriented x3 HEENT Head: Yes normal to inspection Eyes General: appearance normal, both eyes and all related structures Neck Neck: Yes normal visual inspection Thyroid: Thyroid normal Chest Chest palpation & inspection: normal inspection of the chest and other (no puckering, dimpling, peau de orange, retraction, discharge, masses) Breast/axilla inspection: normal inspection of the breasts Breast/axilla palpation: normal palpation of the breasts Resp Effort & Inspection: normal respiratory effort GI Inspection: Yes normal to inspection and Yes scar Palpation (GI): Soft to palpation Rectal Exam - Female: deferred General: Yes bladder normal to palpation External Female Exam: normal external appearance and normal appearance of the urethra Speculum Exam - Vagina: normal appearance of the vagina, normal palpation, normal vaginal discharge and vagina atrophic Speculum Exam - Cervix: normal appearance of the cervix and normal palpation Bimanual exam- vagina & uterus: normal bimanual exam, normal palpation, uterine size normal, bladder normal to palpation, normal palpation and non-tender Bimanual Exam- Adnexa, other: no masses Skin General skin exam: no rashes or lesions noted Rashes: no rashes Neuro General: patient oriented x3 Cognition (Neuro): normal cognition Extrem General: Yes normal to inspection Psych Attitude: cooperative Thought process: Normal thought process present Assessment & Plan Assessment & Plan (1) Encounter for well woman exam with routine gynecological exam: Code(s): Z01.419 - Encounter for gynecological examination (general) (routine) without abnormal findings Category: Medical Plan Discussed: Current recommendations for pap smears per ASCCP guidelines. Breast awareness, periodic self breast exams and yearly mammogram. Maintain a healthy lifestyle, well balanced diet including Calcium 1,200 mg and Vitamin D 600 IU daily, and routine exercise. Contact the office with any postmenopausal bleeding. Patient verbalizes understanding and agrees to the plan of care. She was given opportunity to ask questions and all questions were answered to the best of my ability. RTO in 1 year for annual assembly machine set up mechanic exam. This note is constructed using voice recognition software. While every effort has been made to ensure accuracy, pharmacist critical care errors may have been included. Coding Level of Care Code Est Pt Prev Care 40-64y(43850) Diagnoses Encounter for well woman exam with routine gynecological exam Z01.419
--- OUTSIDE RECORDS SUMMARY | 2024-08-05 07:56 | XMS_ITS | Encounter Summary ---
Author Organization [facility] Address [address] [place] [address] Care Team Providers Care Gas Station Operator Name Role Phone Jaki Akers MD Primary Care Provider [phone] Reason for Visit * Reason Onset Date Comments Medication 07/29/2024 Encounter Details Date Type Department Care Team (Late st Contact Info) Description 07/29/2024 Telephone [facility] [address] [facility] [address] [place] [id number] Alex Guzman MD [address] [facility] [address] [place] [address] Medication Social History Tobacco Use Types Packs/Day Years [...] AM EST documented as of this encounter Progress Notes * Brayan Merida - 07/30/2024 3:45 PM EDT Helped patient schedule a appointment and helped her with her Mychart so she can do the blood pressure guide lines. * Reba Macias NP - 07/29/2024 3:57 PM EDT Please schedule for follow up and discussion - may use a hospital follow up * Heather Montoya RN - 07/29/2024 2:42 PM EDT Spoke with pt, states she has been tired since starting Propranolol in Dec 2023 over the past three months fatigued has increased 3 hours after taking medication feels so tired she could nap. Stating her BP has been running low at times. SBP 90's HR 48 last week. I sent her a my chart message withthe BP LOG instructions and asked her to start a BP LOG Pt recently had lab work at [facility] I have sen them a fax requesting the results. Stated her RBC and WBC is low and seeing dr for that [facility] 12/2023 No new meds, no missed meds, stated she is on same meds as [facility] 12/2023. No recent illness. Denies feeling lightheaded, dizzy, SOB, CP. Will feel palps on occasion. Drinks 64 ounces of water daily, one mushroom coffee daily and 1 glass of wine weekly * Lianet Ch - 07/29/2024 2:33 PM EDT The patient called, she saw Dr. Guzman in December and was prescribed Propranolol. Since startingthis medication she has been very tired and fatigued, by 2:00 pm most days she is exhausted. Pleasecall her back at [phone]. documented in this encounter Plan of Treatment Upcoming Encounters Date Type Department Care Team (Late st Contact Info) Description 08/07/2024 2:40 PM EDT Office Visit [facility] [address] [place] [phone] Reba Macias NP [address] [place] [address] 09/23/2024 10:50 AM EDT Office Visit [facility] [address] [place] [phone] Adan Monique MD [address] [place] [address] [address] [place] [address] documented as of this encounter Visit Diagnoses Not on filedocumented in this encounter Historical Medications * This list may reflect changes made after this encounter. propranolol LA (INDERAL LA) 60 mg 24 hr capsule Take 1 capsule (60 mg total) by mouth 1 (one) time each day. Do not crush, chew, or split. added in this encounter Care Teams Gas Station Operator Relationship Specialty Start Date End Date Jaki Akers MD [address] [place] [address] PCP - General Internal Medicine 04/06/15 documented as of this encounter
--- OUTSIDE RECORDS SUMMARY | 2024-08-05 07:56 | XMS_ITS ---
Author Organization [facility] Address [address] [place] [address] Care Team Providers Care Vehicle Safety Inspector Name Role Phone Oswald FRANCIS, Jaki Baez Primary Care Provider Un available Neil Rachel Unavailable [phone] Niyah Clayton Unavailable [phone] REASON FOR VISIT buy [employer]ec sports # 38 Encounters Encounter Location Date Provider Diagnosis [facility] [address] [place] [address] 02/05/2024 Niyah Clayton Plan Of Treatment No Information Progress Notes * Darcy SARMIENTO SDOB: [birth year] (63 yo F)Acc No.[id number]:02/05/2024 Patient:?Darcy Sarmiento :1960???Age:63 Y???Sex:Female Address: [place] [place] [address] * true * Date:? Generated for Solangei khadar/Jose/eTransmitting on:?08/05/2024 07:55 AM EDT
--- OUTSIDE RECORDS SUMMARY | 2024-08-05 07:56 | XMS_ITS | Continuity of Care Document ---
Author Organization [facility] [address] [facility] [address] [place] [address] Phone [phone] Care Team Providers Care Dental Ceramist Assistant Name Role Phone ElanikitaJaki Care Team Information Staff Auditor [phone] Problems Active Problems Provider Date Endometriosis (clinical) [...] Medications SIG Qnty Indications Ordering Provider Date Propranolol HCL ER60mg Caps ER 24HR 1 qd Unknown Vital Signs Date Vital Result Comment 07/28/2024 8:18am BP Systolic 100 mmHg BP Diastolic 70 mmHg Heart Rate 64 /min Height 64 inches 5'4 Weight 148.50 lb BMI (Body Mass Index) 25.5 kg/m2 Results Test Acquired Date Facility Test Result H/L Range N ote TSH Rfx on Abnormal to Free T4 07/17/2023 [facility] TSH Rfx on Abnormal to Free T4 1.090 uIU/mL 0.450-4.500 Medical Devices Description No Information Available Encounters Type Date Location Provider Dx Diagnosis Office Visit 07/28/2024 8:15a Main Office Neil Simpson M.D. E04.1 Nontoxic single thyroid nodule Assessments Date Code Description Provider 07/28/2024 E04.1 Thyroid nodule Neil magaña M.D. Plan of Treatment Future Appointment(s):* 07/30/2025 8:15 am - Neil Simpson M.D. at Main Office 06/19/2022 - Neil Simpson M.D.* E04.2 Multinodular goiter* New Xrays:* US Guided Fna Fine Needle Aspiration Biopsy Thyroid, Scheduled: 07/10/22 Functional Status Description No Information Available Mental Status Description No Information Available Referrals Refer to Reason for Referral Status Appt Madi e Neil Simpson M.D. Created [address] [place] [address] Drive [address] [place] [address] [phone] Neil Simpson M.D. Closed [address] [place] [address] Drive [address] [place] [address] [phone] Neil Simpson M.D. Created [address] [place] [address] Drive [address] [place] [address] [phone]
--- OUTSIDE RECORDS SUMMARY | 2024-08-05 07:56 | XMS_ITS | Clinical Summary ---
Author Organization [facility] Address [address] [place] [address] Phone Care Team Providers Care Data Miner Name Role Phone Jaki Akers MD Primary Care Provider Allergies Active Allergy Reactions Criticality Noted Date [...] Patient tolerates Trimethoprim for UTI prophylaxis Medications propranolol LA (INDERAL LA) 60 mg 24 hr capsule Take 1 capsule (60 mg total) by mouth 1 (one) time each day. Do not crush, chew, or split. Active Active Problems Problem Noted Date Diagnosed Date [...] Encounters Date Type Department Care Team Description 07/29/2024 Telephone [facility] - [address] [place] [address] Alex Guzman MD Medication 07/15/2024 8:15 AM EDT - 07/15/2024 11:59 PM EDT Hospital Encounter Ultrasound [address] [place] [address] Nontoxic multinodular goiter Discharge Disposition: Home or Self Care from Last 3 Months Immunizations Name Administration Dates Next Due Hepatitis A Adult (Havrix; Vaqta) 19yo and older 03/20/2006 Hepatitis B (Qettsuq-J-Kikwp , Recombivax HB-Adult) 19yo and older 03/20/2006 Tdap Tetanus diptheria acell ular pertussis (Boostrix; Adacel) 7yo and older 09/30/2012 Surgical History Surgery Date Site/Laterality Comments OTHER SURGICAL HISTORY PROCEDURE: ---- OTHER ----; COMMENT: EGD and Colonoscopy as normal OTHER SURGICAL HISTORY PROCEDURE: AL UNLISTED PROCEDURE LIVER; COMMENT: liver resection CHOLECYSTECTOMY PROCEDURE: HISTORICAL CHOLECYSTECTOMY OTHER SURGICAL HISTORY PROCEDURE: LAPAROSCOPY PROCEDURE NEC; COMMENT: endometriosis OTHER SURGICAL HISTORY Right PROCEDURE: AL UNLISTED PROCEDURE VASCULAR SURGERY; COMMENT: vein removal leg SECTION PROCEDURE: HISTORICAL DELIVERY; COMMENT: x 2 WISDOM TOOTH EXTRACTION PROCEDURE: HISTORICAL WISDOM TEETH EXTRACTION OTHER SURGICAL HISTORY PROCEDURE: AL BIOPSY THYROID PERCUTANEOUS CORE NEEDLE; COMMENT: neg [...] Description 08/07/2024 2:40 PM EDT Office Visit [facility] - [facility] [address] [facility] [address] [place] [address] Reba Macias, SUPERVISORY AIR INTERCEPT CONTROLLER [address] [place] [address] 09/23/2024 10:50 AM EDT Office Visit [facility] Cardiology [facility] [address] [place] [phone] Adan Monique MD [address] [place] [address] [address] [place] [address] Health Maintenance Due Date Last Done Comments [...] age to complete this topic Meningococcal B Vaccine Aged Out No l onger eligible based on patient's age to complete [...] Procedure Name Priority Date/Time Associated Diagnosis Comments US HEAD NECK SOFT TISSUE Routine 07/15/2024 8:53 AM EDT Nontoxic multinodular goiter SCR MAMMO BI INCL CAD Routine 01/10/2019 3:12 PM EDT Encounter for screening mammogram for malignant neoplasm of breast LIPID PANEL Routine 03/22/2018 HM HPV Routine 02/14/2017 HM COLONOSCOPY Routine 07/26/2015 HM HEPATITIS C SCREENING Routine 05/14/2015 from Last 3 Months or Most Recently Relevant to Health Maintenance Results * US Head Neck Soft Tissue (07/15/2024 8:53 AM EDT) Anatomical Region Laterality Modality Head and Neck Ultrasound 07/18/2024 8:36 AM EDT Impressions 07/18/2024 8:42 AM EDT Heterogeneous solid left lobe thyroid nodule with a maximum diameter of 1.8 cm Management of lesions between 1.5 and 2.5 cm require some clinical correlation. Management possibilities include sonographic surveillance or tissue diagnosis. TI-RADS Assessment (updated July 2016) Composition: ??cystic or spongiform: 0 pt ??mixed cystic and solid: 1 pt ??solid or almost completely solid: 2 pts Echogenicity: ?? anechoic: 0 pt ?? hyperechoic or isoechoic: 1 pt ?? hypoechoic: 2 pts ?? very hypoechoic: 3 pt Shape: ?? wider than tall: 0 pt ?? taller than wide: 3 pts Margin: ?? smooth: 0 pt ?? ill-defined: 0 pt ?? lobulated/irregular: 2 pts ?? extra-thyroidal extension: 3 pts Echogenic foci ?? none or large comet tail artifact: 0 pt ?? macro-calcification: 1 pt ?? peripheral/rim ca++: 2 pts ?? punctate echogenic foci: 3 pts TR1: ??0 pts; benign; no follow-up TR2: 2 pts; not suspicious; no FNA TR3: 3 pts; mildly suspicious; < or = 1.5 cm f/u; > or = 2.5 cm FNA TR4: 4-6 pts; moderately suspicious; < or = 1.0 cm follow-up; 1.5 cm FNA TR5: 7 or > pts; highly suspicious; .5-.9 cm f/u; 1.0 cm or > FNA -------- FINAL REPORT -------- Dictated By: Josias Castellanos Dictated Date: 07/18/2024 08:36 ET Assigned Physician: Josias Castellanos Reviewed and Electronically Signed By: Josias Castellanos Signed Date: 07/18/2024 08:42 ET Workstation ID: [id number] Transcribed By: Self Edit Transcribed Date: 07/18/2024 08:36 ET Narrative 07/18/2024 8:42 AM EDT HISTORY: Thyroid nodule TECHNIQUE: Grayscale assessment of the thyroid was performed with a high frequency linear transducer. COMPARISON: ??Portions of previous 08/14/23 FINDINGS: The right lobe of the thyroid measures: 4.3 x 1.0 x 1.3 cm Previous measurement: 5.0 x 1.2 x 1.3 cm Right lobe contour: The right lobe contour is smooth. Right lobe echogenicity: Homogeneous Right lobe vascularity: Normal The left lobe of the thyroid measures: 4.4 x 1.5 x 1.3 cm Previous measurement: 4.8 x 1.6 x 1.3 cm Left lobe contour: The left lobe contour is smooth. Left lobe echogenicity: Homogeneous Left lobe vascularity: Normal Isthmus measures (AP): 0.3 cm Previous measurement: 0.3 cm Isthmus contour: The isthmic contour is smooth. Isthmus echogenicity: Homogeneous Isthmus vascularity: Normal Masses: There is a dominant heterogeneous solid left lobe nodule LEFT Mid lobe There is a heterogeneous solid oval nodule with long axis parallel. There are a few small internal anechoic spaces. There are areas of posterior enhancement. There are no suspicious calcifications. There is no evidence of extrathyroidal extension. 07/15/24-1.8 x 1.2 x 1.1 cm 08/14/23-2.2 x 1.3 x 1.2 cm TR 3 OTHER: Extrathyroidal extension: ??None Regional lymph nodes: ??No enlarged lymph nodes demonstrated Procedure Note Josias Castellanos MD - 07/18/2024 HISTORY: Thyroid nodule TECHNIQUE: Grayscale assessment of the thyroid was performed with a highfrequency linear transducer. COMPARISON: Portions of previous 08/14/23 FINDINGS: The right lobe of the thyroid measures: 4.3 x 1.0 x 1.3 cm Previous measurement: 5.0 x 1.2 x 1.3 cm Right lobe contour: The right lobe contour is smooth. Right lobe echogenicity: Homogeneous Right lobe vascularity: Normal The left lobe of the thyroid measures: 4.4 x 1.5 x 1.3 cm Previous measurement: 4.8 x 1.6 x 1.3 cm Left lobe contour: The left lobe contour is smooth. Left lobe echogenicity: Homogeneous Left lobe vascularity: Normal Isthmus measures (AP): 0.3 cm Previous measurement: 0.3 cm Isthmus contour: The isthmic contour is smooth. Isthmus echogenicity: Homogeneous Isthmus vascularity: Normal Masses: There is a dominant heterogeneous solid left lobe nodule LEFT Mid lobe There is a heterogeneous solid oval nodule with long axis parallel. Thereare a few small internal anechoic spaces. There are areas of posteriorenhancement. There are no suspicious calcifications. There is no evidenceof extrathyroidal extension. 07/15/24-1.8 x 1.2 x 1.1 cm 08/14/23-2.2 x 1.3 x 1.2 cm TR 3 OTHER: Extrathyroidal extension: None Regional lymph nodes: No enlarged lymph nodes demonstrated IMPRESSION: Heterogeneous solid left lobe thyroid nodule with a maximum diameter of1.8 cm Management of lesions between 1.5 and 2.5 cm require some clinicalcorrelation. Management possibilities include sonographic surveillance or tissuediagnosis. TI-RADS Assessment (updated July 2016) Composition: cystic or spongiform: 0 pt mixed cystic and solid: 1 pt solid or almost completely solid: 2 pts Echogenicity: anechoic: 0 pt hyperechoic or isoechoic: 1 pt hypoechoic: 2 pts very hypoechoic: 3 pt Shape: wider than tall: 0 pt taller than wide: 3 pts Margin: smooth: 0 pt ill-defined: 0 pt lobulated/irregular: 2 pts extra-thyroidal extension: 3 pts Echogenic foci none or large comet tail artifact: 0 pt macro-calcification: 1 pt peripheral/rim ca++: 2 pts punctate echogenic foci: 3 pts TR1: 0 pts; benign; no follow-up TR2: 2 pts; not suspicious; no FNA TR3: 3 pts; mildly suspicious; < or = 1.5 cm f/u; > or = 2.5 cm FNA TR4: 4-6 pts; moderately suspicious; < or = 1.0 cm follow-up; 1.5 cm FNA TR5: 7 or > pts; highly suspicious; .5-.9 cm f/u; 1.0 cm or > FNA -------- FINAL REPORT -------- Dictated By: Josias Castellanos Dictated Date: 07/18/2024 08:36 ET Assigned Physician: Josias Castellanos Reviewed and Electronically Signed By: Josias Castellanos Signed Date: 07/18/2024 08:42 ET Workstation ID: [id number] Transcribed By: Self Edit Transcribed Date: 07/18/2024 08:36 ET us Neil Simpson MD IMG US PROCEDURES Final Res ult * SCR MAMMO BI INCL CAD (01/10/2019 [...] (<15%) Jaki Akers MD IMG XR PROCEDURES Final Res ult * (ABNORMAL) Lipid panel (03/22/2018) [facility] LDL/HDL Ratio 3 0 - 4 Triglycerides 42 0 - 150 mg/dL Cholesterol 201(A) 0 - 200 mg/dL HDL 75 >=40 mg/dL LDL Cholesterol 118(A) 0 - 100 mg/dL Blood Venous blood specimen / Unknown Result [facility] Provider LAB BLOOD ORDERABLES Alena l Result * Cervical Cancer Screening: HPV (02/14/2017) Pathologist [facility] Cervical Cancer Screening: HPV negative, abstracted Result [facility] Provider HEALTH MAINTENANCE Final Result * Colonoscopy (07/26/2015) [facility] Colonoscopy abnormal, abstracted Anatomical Region Laterality Modality Other Result [facility] Provider HEALTH MAINTENANCE Final Result * Hepatitis C Screening (05/14/2015) [facility] Hepatitis C Screening abstracted us Historical Provider HEALTH MAINTENANCE Final Result from Last 3 Months or Most Recently Relevant to Health [place] [id number] [employer] Advance Directives Documents on File Type Date Recorded Patient Agriculture Sales Account Manager Expl anation Health Care Decision (hx) 08/15/2013 [...] (hx) 07/29/2013 AD APARICIO DIRECTIVE Care Teams Data Miner Relationship Specialty Start Date End Date Jaki Akers MD [address] [place] [address] PCP - General Internal Medicine 04/06/15
[2024-08-05 07:57] VITALS: BP 110/70; BMI 25.2
== END 2024-08-05 10:57 | disposition home or self-care (01) ==
LOC: HO.HWS 07:51
PROVIDERS: PCP Internal Medicine; Visit Provider Advanced Practice Midwife
DX: Z01.419 Encounter for gynecological examination (general) (routine) without abnormal findings (principal)
CPT/HCPCS: 99396; 99459

== ENCOUNTER → 2024-08-05 07:50 | Outpatient (BNVA) | payer OTHER, SELFPAY | PROVIDERS: PCP Internal Medicine; Visit Provider Advanced Practice Midwife | DX: Z01.419 Encounter for gynecological examination (general) (routine) without abnormal findings (principal) | CPT/HCPCS: 99212; 99459 ==

== ENCOUNTER 2024-08-19 11:29 | Outpatient (REF) | payer OTHER, SELFPAY ==
--- OUTSIDE RECORDS SUMMARY | 2024-08-19 13:14 | XMS_ITS ---
Author Organization [facility] Address [address] [facility] [place] [address] Care Team Providers Care Head Grinder Name Role Phone Oswald FRANCIS, Jaki Baez Primary Care Provider Un available Neil Rachel Unavailable [phone] Niyah Clayton Unavailable [phone] Allergies Allergen (clinical drug ingredient) Drug/Non Drug [...] 024 Encounters Encounter Location Date Provider Diagnosis [facility] [address] [place] [address] 03/19/2024 Niyah Clayton Tarsal tunnel syndrome of [...] Darcy SARMIENTO SDOB: [birth year] (63 yo F)Acc No.[id number]:03/19/2024 Progress Notes Patient:?Darcy SARMIENTO S Provider:?Niyah Clayton DPM :1960???Age:63 Y???Sex:Female D ate:03/19/2024 [facility] Pcp:Earl Camejo Subjective: * Chief Complaints: * [...] DPM Date:?1 05/20/2023 Generated for Yuliya rubalcava/Jose/Skipitting on:?08/19/2024 01:14 PM EDT History and Physical Notes * HPI [...]
--- OUTSIDE RECORDS SUMMARY | 2024-08-19 13:14 | XMS_ITS ---
Author Organization [facility] Address [address] [place] [address] Care Team Providers Care Narcotics And/Or Vice Detective Name Role Phone Oswald FRANCIS, Jaki Baez Primary Care Provider Un available Neil Rachel Unavailable [phone] Niyah Clayton Unavailable [phone] REASON FOR VISIT buy pedFlywheel sports # 38 Encounters Encounter Location Date Provider Diagnosis [facility] [address] [place] [address] 02/05/2024 Niyah Clayton Plan Of Treatment No Information Progress Notes * Darcy SARMIENTO SDOB: [birth year] (63 yo F)Acc No.[id number]:02/05/2024 Patient:?Darcy Sarmiento Ly :1960???Age:63 Y???Sex:Female Address: [place] [address] * true * Date:? Generated for Solangei khadar/Jose/eTransmitting on:?08/19/2024 01:14 PM EDT
--- OUTSIDE RECORDS SUMMARY | 2024-08-19 13:14 | XMS_ITS | Continuity of Care Document ---
Author Organization [facility] [address] [facility] [address] [place] [address] Phone [phone] Care Team Providers Care Cultural Anthropology Professor Name Role Phone ElanikitaJaki Care Team Information Event Marketing Representative [phone] Problems Active Problems Provider Date Endometriosis (clinical) [...] Appt Madi e Neil Simpson M.D. Created [address] [place] [address] Drive [address] [place] [address] [phone] Neil Simpson M.D. Closed [address] [place] [address] Drive [address] [place] [address] [phone] Neil Simpson M.D. Created [address] [place] [address] Drive [address] [place] [address] [phone]
--- OUTSIDE RECORDS SUMMARY | 2024-08-19 13:14 | XMS_ITS | Clinical Summary ---
Author Organization [facility] Address [address] [place] [address] Phone Care Team Providers Care Historiographer Name Role Phone Jaki Akers MD Primary [...] Encounters Date Type Department Care Team Description 08/11/2024 Telephone Gastroenterology - [address] [facility] [address] [place] [address] Sari Goodrich NP 08/07/2024 2:40 PM EDT Office Visit [facility] Cardiology [facility] - [facility] [address] [facility] [address] [place] [address] Reba Macias NP Palpitations (Primary Dx) 08/07/2024 Telephone [facility] Cardiology [facility] - [facility] [address] [place] [address] Reba Macias NP records 07/29/2024 Telephone [facility] Cardiology [facility] - [address] [place] [address] Alex Guzman MD Medication 07/15/2024 8:15 AM EDT - 07/15/2024 11:59 PM EDT Hospital Encounter [facility] Ultrasound [address] [place] [address] Nontoxic multinodular goiter Discharge Disposition: Home or Self Care from Last 3 Months Immunizations Name Administration Dates Next Due Hepatitis A Adult (Havrix; Vaqta) 19yo and older 03/20/2006 Hepatitis B (Qmgdubl-R-Oljdo , Recombivax HB-Adult) 19yo and older 03/20/2006 Tdap Tetanus diptheria acell ular pertussis (Boostrix; Adacel) 7yo and older 09/30/2012 Surgical History Surgery Date Site/Laterality Comments OTHER SURGICAL HISTORY PROCEDURE: ---- OTHER ----; COMMENT: EGD and Colonoscopy as normal OTHER SURGICAL HISTORY PROCEDURE: NE UNLISTED PROCEDURE LIVER; COMMENT: liver resection CHOLECYSTECTOMY PROCEDURE: HISTORICAL CHOLECYSTECTOMY OTHER SURGICAL HISTORY PROCEDURE: LAPAROSCOPY PROCEDURE NEC; COMMENT: endometriosis OTHER SURGICAL HISTORY Right PROCEDURE: NE UNLISTED PROCEDURE VASCULAR SURGERY; COMMENT: vein removal leg SECTION PROCEDURE: HISTORICAL DELIVERY; COMMENT: x 2 WISDOM TOOTH EXTRACTION PROCEDURE: HISTORICAL WISDOM TEETH EXTRACTION OTHER SURGICAL HISTORY PROCEDURE: NE BIOPSY THYROID PERCUTANEOUS CORE NEEDLE; COMMENT: neg [...] Sign Reading Time Taken Comments Blood Pressure 100/60 08/07/2024 2:33 PM EDT Pulse 59 08/07/2024 2:33 PM EDT Temperature - - Respiratory Rate - - Oxygen Saturation 98% 08/07/2024 2:33 PM EDT Inhaled Oxygen Concentration - - Weight 66.7 kg (147 lb) 08/07/2024 2:33 PM EDT Height 162.6 cm (5' 4 ) 08/07/2024 2:33 PM EDT Body Mass Index 25.23 08/07/2024 2:33 PM EDT Plan of Treatment Upcoming Encounters Date Type Department Care Team (Late st Contact Info) Description 09/18/2024 11:00 AM EDT Office Visit Gastroenterology - [address] [facility] [address] [place] [address] Sari Goodrich, SYNTHETIC RESIN OPERATOR [address] [facility] [address] [place] [address] 09/23/2024 10:50 AM EDT Office Visit [facility] - [address] [place] [address] Adan Monique MD [address] [place] [address] [address] [place] [address] 02/11/2025 7:40 AM EDT Office Visit [facility] Cardiology [facility] - [address] [place] [address] Reba Macias NP [address] [place] [address] Health Maintenance Due Date Last Done Comments [...] Procedure Name Priority Date/Time Associated Diagnosis Comments ECG 12-LEAD Routine 08/07/2024 4:22 PM EDT Palpitations US HEAD NECK SOFT TISSUE Routine 07/15/2024 8:53 AM EDT Nontoxic multinodular goiter SCR MAMMO BI INCL CAD Routine 01/10/2019 3:12 PM EDT Encounter for screening mammogram for malignant neoplasm of breast LIPID PANEL Routine 03/22/2018 HPV Routine 02/14/2017 COLONOSCOPY Routine 07/26/2015 HEPATITIS C SCREENING Routine 05/14/2015 from Last 3 Months or Most Recently Relevant to Health Maintenance Results * ECG 12 lead (08/07/2024 4:22 PM EDT) Ventricular Rate ECG 59 BPM GEMUSE Atrial Rate 59 BPM GEMUSE P-R Interval 152 ms GEMUSE QRS Duration 92 ms GEMUSE Q-T Interval 412 ms GEMUSE QTc 407 ms GEMUSE P Wave [place] 71 degrees GEMUSE R [place] 22 degrees GEMUSE T [place] 54 degrees GEMUSE ECG Interpretation Sinus bradycardia Possible Left atrial enlargement Incomplete right bundle branch block Septal infarct , age undetermined Abnormal ECG No previous ECGs available GEMUSE 08/07/2024 2:38 PM EDT us Reba Macias SYNTHETIC RESIN OPERATOR ECG ORDERABLES Final Result GEMUSE * US Head Neck Soft Tissue (07/15/2024 [...] Signed Date: 07/18/2024 08:42 ET Workstation ID: [id number] Transcribed By: Self Edit Transcribed Date: 07/18/2024 [...] Signed Date: 07/18/2024 08:42 ET Workstation ID: [id number] Transcribed By: Self Edit Transcribed Date: 07/18/2024 [...] Res ult * (ABNORMAL) Lipid panel (03/22/2018) [facility] LDL/HDL Ratio 3 0 - 4 Triglycerides 42 0 - 150 mg/dL Cholesterol 201(A) 0 - 200 mg/dL HDL 75 >=40 mg/dL LDL Cholesterol 118(A) 0 - 100 mg/dL Blood Venous blood specimen / Unknown Result [facility] Provider LAB BLOOD ORDERABLES Alena l Result * Cervical Cancer Screening: HPV (02/14/2017) [facility] Cervical Cancer Screening: HPV negative, abstracted [facility] Provider HEALTH MAINTENANCE Final Result * Colonoscopy (07/26/2015) [facility] Colonoscopy abnormal, abstracted Anatomical Region Laterality Modality Other [facility] Provider HEALTH MAINTENANCE Final Result * Hepatitis C Screening (05/14/2015) [facility] Hepatitis C Screening abstracted us Historical Provider HEALTH MAINTENANCE Final Result from Last 3 Months or Most Recently Relevant to Health Maintenance Insurance [employer]ILY [employer]AN Advance Directives Documents on File Type Date Recorded Patient Cam Specialist Expl anation Health Care Decision (hx) 08/15/2013 [...] (hx) 07/29/2013 AD APARICIO DIRECTIVE Care Teams Historiographer Relationship Specialty Start Date End Date Jaki Akers MD [address] [place] [address] PCP - General Internal Medicine 04/06/15
--- OUTSIDE RECORDS SUMMARY | 2024-08-19 13:15 | XMS_ITS | Patient Health Record ---
Author Organization [facility] Address [address] [place] [address] Care Team Providers Care Vehicle Maintenance Supervisor Name Role Phone Oswald FRANCIS, Jaki Baez Primary Care Provider Un available Neil Rachel Unavailable [phone] Niyah Clayton Unavailable [phone] Allergies Allergen (clinical drug ingredient) Drug/Non Drug [...] Provider Speciality Internal M edicine [facility] Referred Provider Niyah Clayton Referred Address [address] [facility],[place], [place],[address],[place] Referred Provider Specialty Podiatry Referral Priority Routine Diagnosis 1 Hallux rigidus, righ t foot (M20.21) Referring Provider First Name Jaki Hill Referring Provider Last Name Oswald Referring Provider Speciality Internal M edicine [facility] Referred Provider Neil Rachel Referred Address [address],[place],[address],[place] Referred Provider Specialty Podiatry Referral Priority Routine [...] Status Risk Notes Problem Plantar fascial fibromatosis (16193196) Plantar fascial fibromatosis (M72.2) Active confirmed Problem Acquired hallux valgus (62003699) Hallux valgus (acquired), left foot (M20.12) Active confirmed Problem Acquired hallux rigidus (1009119) Hallux rigidus, right foot (M20.21) Active confirmed Vital Signs Blood pressure diastolic 69 mm Hg 05/13/2024 Height 5ft 4in in 05/13/2024 Blood pressure systolic 120 mm Hg 05/13/2024 Weight 140 lbs 05/13/2024 BMI 24.03 kg/m2 05/13/2024 Encounters Encounter Location Date [facility] [address] 02/05/2024 Niyahelisabeth Clayton Tarsal tunnel syndrome of left side G57.52 and Pain of left foot M79.672 [facility] [address] 03/19/2024 Niyah Clayton Tarsal tunnel syndrome of left side G57.52 ; Pain of left foot M79.672 and Plantar fascial fibromatosis M72.2 [facility] [address] [place] [address] 05/13/2024 Neil Rachel Plantar fascial fibromatosis M72.2 ; Pain in left foot M79.672 ; Pain in right foot M79.671 ; Hallux rigidus, right foot M20.21 and Hallux valgus (acquired), left foot M20.12 [facility] [place] [address] [place] [address] 02/05/2024 Niyah Clayton Assessments Encounter Date Diagnosis [...] [employer] [address] [place] [address] [phone] [id number] Ezra Chaparro Spouse - patient is the [...]
--- OUTSIDE RECORDS SUMMARY | 2024-08-19 13:15 | XMS_ITS ---
Author Organization [facility] catarino Gilbert Address [address] [facility] [place] [address] Care Team Providers Care Automobile Body Repairer Name Role Phone Oswald FRANCIS, Jaki Baez Primary Care Provider Un available Neil Rachel Unavailable [phone] Allergies Allergen (clinical drug ingredient) Drug/Non Drug [...] Status Risk Notes Problem Plantar fascial fibromatosis (70442932) Plantar fascial fibromatosis (M72.2) Active confirmed Problem Acquired hallux rigidus (9702576) Hallux rigidus, right foot (M20.21) Active confirmed Problem Acquired hallux valgus (29511204) Hallux valgus (acquired), left foot (M20.12) Active confirmed Vital Signs Height 5ft 4in in 05/13/2024 Weight 140 lbs 05/13/2024 BMI 24.03 kg/m2 05/13/2024 Blood pressure systolic 120 mm Hg 05/13/19 25 Blood pressure diastolic 69 mm Hg 025 Encounters Encounter Location Date Provider Diagnosis [facility] [address] 05/13/2024 Neil Rachel Plantar fascial fibromatosis M72.2 [...] Darcy SARMIENTO SDOB: [birth year] (63 yo F)Acc No.[id number]:05/13/2024 Progress Note Patient:?Darcy SARMIENTO Provider:?Neil Rachel D.P.M. :1960???Age:63 Y???Sex:Female D ate:05/13/2024 Address: [address], [facility] Pcp:Earl Camejo Subjective: * Chief Complaints: * [...] Rachel D.P.M. Date:?04/17 Generated for Yuliya rubalcava/Jose/Skipitting on:?08/19/2024 01:15 PM EDT History and Physical Notes * [...]
--- OUTSIDE RECORDS SUMMARY | 2024-08-19 13:15 | XMS_ITS | Patient Health Record ---
Author Organization [employer] [facility] Address [address] [place] [address] Care Team Providers Care Build And Release Manager Name Role Phone Aleah Chakraborty Unavailable [phone] Reason For Referral No Information Problems Problem Type SNOMED Code ICD Code Onset Dates Problem Status W/U Status Risk Notes Problem Endometriosis (367569410) Endometriosis of other specified sites (617.8) Active confirmed Diag Problem Endometriosis (578829425) Endometriosis, site unspecified (617.9) Active confirmed Major Problem Urinary tract infectious disease (disorder) (57130287) Urinary tract infection, site not specified (599.0) Active confirmed Diag Problem Cyst of ovary (97090203) Other and unspecified ovarian cyst (620.2) Active confirmed Diag Problem Left lower quadrant pain (728331522) Abdominal pain, left lower quadrant (789.04) Active confirmed Diag Problem Gynecological examination normal (355420781534231) Routine gynecological examination (V72.31) Active confirmed Diag Problem Dietary management surveillance (579587238) Dietary surveillance and counseling (V65.3) Active confirmed Diag Problem Exercises teaching, guidance, and counseling (222101600) Exercise counseling (V65.41) Active confirmed Diag Plan Of Treatment No Information Insurance Providers Payer Name Payer Address Payer Phone Subscriber Number Group Number Insured Name Patient Relationship to Insured Coverage Start Date Coverage End Date [facility] [address] [facility], [place] [id number] ESTEFANY SARMIENTO Self - patient is the insured
[2024-08-19 13:44] LABS: MANUAL DIFF FLAG NO
[2024-08-19 13:47] LABS: Basophils Percent Auto 0.9 % (0-2); Eosinophils Percent Auto 0.4 % (0-4); Hemoglobin 13.5 g/dl (12.0-16.0); Imm Gran Abs Auto 0.01 X10*3/uL (0.00-0.03); Imm Gran Pct Auto 0.2 % (0.0-0.4); Lymphocytes Absolute Auto 1.4 X10*3/uL (1.2-4.9); Lymphocytes Percent Auto 31.3 % (20-40); Mean Corpuscular HGB Conc 33.8 g/dl (31.0-35.0); Mean Corpuscular Hemoglobin 30.9 pg (27.0-33.0); Mean Corpuscular Volume 91.5 fL (80.0-98.0); Monocytes Absolute Auto 0.3 X10*3/uL (0.1-1.2); Neutrophils Absolute Auto 2.8 x10*3/uL (2.0-8.3); Neutrophils Percent Auto 60.2 % (45-73); Platelet Count 246 X10*3/uL (160-400); Red Blood Count 4.37 X10*6/uL (4.20-5.50); Red Cell Distribution Width 12.4 % (11.0-16.0); White Blood Count 4.6 X10*3/uL (4.8-10.8)
[2024-08-19 15:23] LABS: Anion Gap 10 (12-20)
[2024-08-19 15:52] LABS: Alanine Aminotransferase 22 U/L (0-31); Albumin Level 4.4 g/dL (3.5-5.0); Aspartate Amino Transferase 25 U/L (5-31); Bilirubin Total 0.4 mg/dL (0.0-1.0); Blood Urea Nitrogen 13 mg/dL (9-16); Calcium 9.8 mg/dL (8.4-10.2); Carbon Dioxide 31 mmol/L (22-29); Chloride 104 mmol/L (96-108); Estimated Glomerular Filt Rate > 60; Ferritin 113 ng/mL (10-250); Glucose Random 54 mg/dL (60-115); Iron 86 mcg/dL (30-160); Percent Iron Saturation 33 % (15-50); Sodium 140 mmol/L (135-145); Total Iron Binding Capacity 259 mcg/dL (228-428); Unsaturated Iron Binding 173 ug/dL
[2024-08-19 17:00] LABS: Alkaline Phosphatase 64 U/L (39-117)
[2024-08-20 20:49] LABS: Thyroid Peroxidase Antibodies <1 IU/mL (<9)
[2024-08-22 08:09] LABS: Zinc 69 mcg/dL (60-130)
[2024-08-22 08:13] LABS: Copper, serum 125 mcg/dL (70-175)
[2024-08-23 07:47] LABS: Vitamin A 51 mcg/dL (38-98)
== END 2024-08-19 11:30 | disposition home or self-care (01) ==
LOC: HO.HMGCLDS 11:29
PROVIDERS: PCP Internal Medicine; Visit Provider Internal Medicine Medical Oncology
DX: D72.819 Decreased white blood cell count, unspecified (principal); R53.83 Other fatigue
CPT/HCPCS: 36415; 80053; 82525; 82728; 83540; 84590; 84630; 85025; 86376

== ENCOUNTER 2024-09-25 08:09 | Outpatient (REF) | payer OTHER, SELFPAY | END 2024-09-25 08:10 | disposition home or self-care (01) | LOC: HO.MAMMO 08:09 | PROVIDERS: PCP Internal Medicine; Visit Provider Internal Medicine | DX: Z12.31 Encounter for screening mammogram for malignant neoplasm of breast (principal) | CPT/HCPCS: 77063; 77067 ==

== ENCOUNTER → 2024-09-25 08:15 | Outpatient (BNV) | payer OTHER, SELFPAY | PROVIDERS: PCP Internal Medicine; Visit Provider Internal Medicine | DX: Z12.31 Encounter for screening mammogram for malignant neoplasm of breast (principal) | CPT/HCPCS: 77063; 77067 ==